=== PATIENT | male | born 1955 | race Two or more races ===

== ENCOUNTER 2018-07-23 13:23 | Inpatient (IN) | payer OTHER ==
[~2018-07-23] VITALS: Ht 165.1 cm; Wt 86.2 kg
[2018-07-23] MEDS ORDERED: Cefepime HCl 1 GM in NS 55 ML IV STA (13:26)
[2018-07-23] MEDS ORDERED: Vancomycin 1 GM in NS 275 ML IV ONE (13:30)
[2018-07-23 13:45] VITALS: BP 121/72
[2018-07-23] MEDS ORDERED: HYDROXYZINE HCL10 M1 PO (13:46)
[2018-07-23] MEDS ORDERED: METOCLOPRA10 MG/10 M ORAL (13:46)
[2018-07-23] MEDS ORDERED: PROCRIT4000 UNIT/ SUBQ (13:46)
[2018-07-23] MEDS ORDERED: NOVOLIN R100 UNIT/1 SUBQ (13:46)
[2018-07-23] MEDS ORDERED: FUROSEMIDE40 MG ORAL (13:46)
[2018-07-23] MEDS ORDERED: PROTONIX40 MG ORAL (13:46)
[2018-07-23] MEDS ORDERED: HEPARIN SO5000 UNIT2 SUBQ (13:46)
[2018-07-23] MEDS ORDERED: ATORVASTATIN CA20 MG ORAL (13:46)
[2018-07-23] MEDS ORDERED: HYDRALAZINE HCL25 M1 ORAL (13:46)
[2018-07-23] MEDS ORDERED: NORCO 5-325 TA1 EACH ORAL (13:46)
[2018-07-23] MEDS ORDERED: GABAPENTIN300 MG ORAL (13:46)
[2018-07-23] MEDS ORDERED: LEVETIRACE100 MG/1 M GT (13:46)
--- NOTE | 2018-07-23 14:15 | Emergency Room Report ---
History of Present Illness General Chief Complaint: Dyspnea/Respdistress Source: EMS Present Illness HPI Patient is brought in for decreased O2 saturation. The patient is vent dependent via tracheostomy in a residential facility. We were told that he is a DO NOT RESUSCITATE. No supporting documentation of this. Suprapubic cath. G tube. Functional paraplegia with contractures. H/O seizures. No further history available. Allergies: Coded Allergies: No Known Allergies (Unverified , 07/23/18) Patient History Limited by: medical condition Past Medical History: see triage record, old chart reviewed Past Surgical History: other - G tube, trach, suprapubic cath Social History Narrative [facility] Reviewed Nursing Documentation: PMH: Agreed; PSxH: Agreed Nursing Documentation-PM Past Medical History: No History, Except For Hx COPD: Yes - respiratory failure, tracheostomy Hx Diabetes: Yes Hx Gastrointestinal Problems: Yes - diaphagia Hx Seizures: Yes - epilepsy Review of Systems All Other Systems: limited Physical Exam Vital Signs Date Time Temp Pulse Resp B/P (MAP) Pulse Ox O2 Delivery O2 Flow Rate FiO2 07/23/18 13:18 99.7 120 24 121/72 100 Ambu-Bag 15.0 07/23/18 13:38 60 Sp02 EP Interpretation: reviewed, normal General Appearance: mild distress, other - unresponsive, Chronically Ill Eyes: bilateral eye other - eyes closed ENT: moist mucus membranes Neck: other - flaccid with some rigidity, tracheotomy Respiratory: rhonchi, other - CVP L chest Cardiovascular #1: tachycardia, edema - arms Cardiovascular #2: 2+ radial (L) Gastrointestinal: no guarding, distended, other - G tube Genitourinary: other - suprapubic cath Musculoskeletal: other - extensor contractures Neurologic: other - unresponsive and no response to pain, no motor movement Psychiatric: other - comatose Skin: other - mottled, anasarca, heel decubiti Procedures Critical Care Time Critical Care Time Total Critical Care Time: 45 min bedside evaluation and treatment excludes procedures (EKG). Reason for critical care: sepsis, repeat eval, GI bleed. EJ Possible complications: hypotension, hypertension, LA, shock, arrhythmias, metabolic acidosis, end organ damage, respiratory failure. Interventions: fluid resuscitation antibiotics, protonix, vent settings, determination of level of care Course: Patient with hypoxia and tachycardia. Fluid resuscitation with maintenance of BP and improved tachycardia. Antibiotics given. Call to SNF for POLST. CVP found after xray. BC ordered from this. Vomit coffee grounds. Protonix ordered. Distension improved with suction of G tube. Prognosis poor. Consultations: nursing staff, EMS, family Performed by: Dr. Llamas Tolerated well condition = critical Medical Decision Making Diagnostic Impression: Primary Impression: Sepsis Qualified Codes: A41.9 - Sepsis, unspecified organism Additional Impressions: Pneumonia Qualified Codes: J18.9 - Pneumonia, unspecified organism UTI (urinary tract infection) Qualified Codes: T83.510A - Infection and inflammatory reaction due to cystostomy catheter, initial encounter; N39.0 - Urinary tract infection, site not specified UGI bleed ER Course Patient with hypoxia and tachycardia - vent dependent. DDx; pneumonia, sepsis, other source of infection, AMI amongst others. Immediate fluid resuscitation for sepsis. Antibiotics ordered after blood cultures. Vent settings. No documentation of DNR. Lack of IV site. EJ started by ERMD @ 14:25 Some blood able to be drawn. Labs with elevated WBC. Anemia. Elevated lactate. Renal insufficiency. CXR with infiltrates. (Line noted). UA with pyuria. Patient vomited coffee grounds. Protonix ordered. Suction of G tube with 900 cc coffee ground material. Discussed with Dr. Payne. Patient not transferrable. Patient admitted to SDU, Dr. Stone. HR improved. Still unresponsive. Good capillary fill. Prognosis poor. Laboratory Tests Test 07/23/18 13:40 07/23/18 14:10 07/23/18 14:39 Urine Color Yellow Urine Appearance Turbid Urine pH 5 (4.5-8.0) Urine Specific [place] 1.005 (1.005-1.035) Urine Protein Negative (NEGATIVE) Urine Glucose (UA) Negative (NEGATIVE) Urine Ketones Negative (NEGATIVE) Urine Blood 3+ (NEGATIVE) H Urine Nitrite Negative (NEGATIVE) Urine Bilirubin Negative (NEGATIVE) Urine Urobilinogen Normal MG/DL (0.0-1.0) Urine Leukocyte Esterase 3+ (NEGATIVE) H Urine RBC 10-15 /HPF (0 - 0) H Urine WBC 20-30 /HPF (0 - 0) H Urine Squamous Epithelial Cells Few /LPF (NONE/OCC) Urine Bacteria Moderate /HPF (NONE) H Urine Yeast Many /HPF (NONE) H White Blood Count 18.6 K/UL (4.8-10.8) H Red Blood Count 3.85 M/UL (4.70-6.10) L Hemoglobin 9.2 G/DL (14.2-18.0) L Hematocrit 28.5 % (42.0-52.0) L Mean Corpuscular Volume 74 FL (80-99) L Mean Corpuscular Hemoglobin 23.8 PG (27.0-31.0) L Mean Corpuscular Hemoglobin Concent 32.2 G/DL (32.0-36.0) Red Cell Distribution Width 18.9 % (11.6-14.8) H Platelet Count 287 K/UL (150-450) Mean Platelet Volume 5.9 FL (6.5-10.1) L Neutrophils (%) (Auto) % (45.0-75.0) Lymphocytes (%) (Auto) % (20.0-45.0) Monocytes (%) (Auto) % (1.0-10.0) Eosinophils (%) (Auto) % (0.0-3.0) Basophils (%) (Auto) % (0.0-2.0) Differential Total Cells Counted 100 Neutrophils % (Manual) 88 % (45-75) H Lymphocytes % (Manual) 10 % (20-45) L Monocytes % (Manual) 2 % (1-10) Eosinophils % (Manual) 0 % (0-3) Basophils % (Manual) 0 % (0-2) Band Neutrophils 0 % (0-8) Platelet Estimate Adequate Platelet Morphology Normal Hypochromasia Occasional Anisocytosis 1+ Sodium Level 134 MMOL/L (136-145) L Potassium Level 4.0 MMOL/L (3.5-5.1) Chloride Level 102 MMOL/L (98-107) Carbon Dioxide Level 21 MMOL/L (21-32) Anion Gap 11 mmol/L (5-15) Blood Urea Nitrogen 84 mg/dL (7-18) H Creatinine 1.5 MG/DL (0.55-1.30) H Estimate Glomerular Filtration Rate 47.6 mL/min (>60) Glucose Level 108 MG/DL (74-106) H Lactic Acid Level 3.60 mmol/L (0.4-2.0) H Calcium Level 7.7 MG/DL (8.5-10.1) L Magnesium Level 2.1 MG/DL (1.8-2.4) Total Bilirubin 3.7 MG/DL (0.2-1.0) H Direct Bilirubin 2.9 MG/DL (0.0-0.3) H Aspartate Amino Transferase (AST) 70 U/L (15-37) H Alanine Aminotransferase (ALT) 54 U/L (12-78) Alkaline Phosphatase 699 U/L (46-116) H Total Creatine Kinase 55 U/L (26-308) Creatine Kinase MB 1.6 NG/ML (0.0-3.6) Creatine Kinase MB Relative Index 2.9 Troponin I 0.007 ng/mL (0.000-0.056) Pro-B-Type Natriuretic Peptide 3652 pg/mL (0-125) H Total Protein 6.9 G/DL (6.4-8.2) Albumin 1.2 G/DL (3.4-5.0) L Globulin 5.7 g/dL Albumin/Globulin Ratio 0.2 (1.0-2.7) L Lipase 711 U/L (73-393) H Prothrombin Time 12.1 SEC (9.30-11.50) H Prothrombin Time INR 1.2 (0.9-1.1) H PTT 31 SEC (23-33) EKG Diagnostic Results Rate: tachycardiac Rhythm: NSR ST Segments: no acute changes Rhythm Strip Diag. Results EP Interpretation: yes Rhythm: no PVC's, no ectopy, other - Sinus tachycardia Chest X-Ray Diagnostic Results Chest X-Ray Diagnostic Results : Chest X-Ray Ordered: Yes # of Views/Limited/Complete: 1 View Indication: Shortness of Breath Interpretation: no effusion, no pneumothorax, other - bilat infiltrates Impression: Other Electronically Signed by: Electronically signed by Jese Llamas MD Other X-Ray Diagnostic Results Other X-Ray Diagnostic Results : X-Ray ordered: abd # of Views/Limited Vs Complete: 1 View Indication: Swelling EP Interpretation: Yes Interpretation: other - dilated loops of colon, no free air, G tube, fecal material Impression: Other Electronically Signed by: Jese Llamas MD Last Vital Signs Date Time Temp Pulse Resp B/P (MAP) Pulse Ox O2 Delivery O2 Flow Rate FiO2 07/23/18 21:39 101/60 07/23/18 21:19 68 27 50 10/28/18 20:00 98.6 98 07/23/18 20:00 Mechanical Ventilator 07/23/18 18:03 8.0 Status: improved Disposition: ADMITTED INPATIENT Condition: Serious Jese Llamas MD Jul 23, 2018 14:15
[2018-07-23 14:29] LABS: APPEARANCE,URINE TURBID; BILIRUBIN, URINE NEGATIVE (NEGATIVE); GLUCOSE, URINE (UA) NEGATIVE (NEGATIVE); KETONES,URINE NEGATIVE (NEGATIVE); LEUKOCYTE ESTERASE ,URINE 3+ (NEGATIVE); NITRITE,URINE NEGATIVE (NEGATIVE); PH,URINE 5 (4.5-8.0); PROTEIN,URINE NEGATIVE (NEGATIVE); UROBILINOGEN,URINE NORMAL MG/DL (0.0-1.0)
[2018-07-23 14:33] LABS: COLOR,URINE YELLOW
[2018-07-23 15:00] LABS: INR 1.2 (0.9-1.1)
[2018-07-23 15:01] LABS: HEMATOCRIT 28.5 % (42.0-52.0); HEMOGLOBIN 9.2 G/DL (14.2-18.0); MEAN CORPUSCULAR VOLUME 74 FL (80-99); PLATELET COUNT 287 K/UL (150-450); RED BLOOD COUNT 3.85 M/UL (4.70-6.10); RED CELL DISTRIBUTION WIDTH 18.9 % (11.6-14.8); WHITE BLOOD COUNT 18.6 K/UL (4.8-10.8)
[2018-07-23 15:18] LABS: ANION GAP 11 mmol/L (5-15); BLOOD UREA NITROGEN 84 mg/dL (7-18); CALCIUM 7.7 MG/DL (8.5-10.1); CARBON DIOXIDE 21 MMOL/L (21-32); CHLORIDE 102 MMOL/L (98-107); CREATININE 1.5 MG/DL (0.55-1.30); SODIUM 134 MMOL/L (136-145)
[2018-07-23 15:32] LABS: ALANINE AMINOTRANSFERASE 54 U/L (12-78); ALBUMIN 1.2 G/DL (3.4-5.0); ALBUMIN/GLOBULIN RATIO 0.2 (1.0-2.7); ALKALINE PHOSPHATASE 699 U/L (46-116); ASPARTATE AMINO TRANSFERASE 70 U/L (15-37); BILIRUBIN,TOTAL 3.7 MG/DL (0.2-1.0); CKMB 1.6 NG/ML (0.0-3.6); CREATINE KINASE 55 U/L (26-308)
[2018-07-23 15:44] LABS: BILIRUBIN,DIRECT 2.9 MG/DL (0.0-0.3)
[2018-07-23 15:45] VITALS: BP 110/69
[2018-07-23] MEDS ORDERED: Pantoprazole Inj IVP ONE (15:45)
[2018-07-23 17:30] VITALS: BP 108/66
[2018-07-23] MEDS ORDERED: Norco 5mg/325mg tab ORAL PRN (18:15)
[2018-07-23] MEDS ORDERED: Norco 5mg/325mg tab GT PRN (18:49)
[2018-07-23 20:00] VITALS: BP 94/48
[2018-07-23] MEDS: Vitamin A&D Oint 2oz Tube TOPIC SCH (20:34)
[2018-07-23] MEDS: Piperacillin/Tazobactam 3.375 GM in D5W 110 ML IVPB SCH (20:34)
[2018-07-23] MEDS: Atorvastatin 20mg tab GT SCH (20:35)
[2018-07-23] MEDS: Heparin 5000 units/ml inj SUBQ SCH (20:35)
[2018-07-23] MEDS: Metoclopramide 10mg/10ml Liq GT SCH (21:38)
[2018-07-23] MEDS: HydrALAZINE 25mg tab GT SCH (21:39)
[2018-07-23] MEDS ORDERED: HydrALAZINE 25mg tab ORAL SCH (22:00)
[2018-07-23] MEDS ORDERED: Metoclopramide 10mg/10ml Liq ORAL SCH (22:00)
[2018-07-23] MEDS: NovoLOG Insulin Flexpen SUBQ SCH (23:39)
[2018-07-24] VITALS: BP 99/54
[2018-07-24 04:00] VITALS: BP 101/61
[2018-07-24] MEDS: Piperacillin/Tazobactam 3.375 GM in D5W 110 ML IVPB SCH ×3 (04:05→20:00)
[2018-07-24] MEDS: Metoclopramide 10mg/10ml Liq GT SCH ×3 (05:37→22:40)
[2018-07-24] MEDS: HydrALAZINE 25mg tab GT SCH ×3 (05:38→22:00)
[2018-07-24] MEDS: NovoLOG Insulin Flexpen SUBQ SCH ×3 (05:50→18:00)
[2018-07-24 06:10] LABS: HEMATOCRIT 20.5 % (42.0-52.0); MEAN CORPUSCULAR VOLUME 75 FL (80-99); PLATELET COUNT 187 K/UL (150-450); RED BLOOD COUNT 2.74 M/UL (4.70-6.10); RED CELL DISTRIBUTION WIDTH 18.8 % (11.6-14.8); WHITE BLOOD COUNT 9.7 K/UL (4.8-10.8)
[2018-07-24 06:20] LABS: ANION GAP 10 mmol/L (5-15); BLOOD UREA NITROGEN 81 mg/dL (7-18); CALCIUM 7.5 MG/DL (8.5-10.1); CARBON DIOXIDE 23 MMOL/L (21-32); CHLORIDE 106 MMOL/L (98-107); CREATININE 1.5 MG/DL (0.55-1.30); POTASSIUM 2.8 MMOL/L (3.5-5.1); SODIUM 139 MMOL/L (136-145)
[2018-07-24 06:31] LABS: HEMOGLOBIN 6.5 G/DL (14.2-18.0)
[2018-07-24 08:00] VITALS: BP 90/51
[2018-07-24] MEDS: Furosemide 40mg tab GT SCH (08:59)
[2018-07-24] MEDS ORDERED: Furosemide 40mg tab ORAL SCH (09:00)
[2018-07-24] MEDS: Heparin 5000 units/ml inj SUBQ SCH ×2 (09:00→20:47)
[2018-07-24] MEDS: Vitamin A&D Oint 2oz Tube TOPIC SCH ×2 (09:01→20:48)
[2018-07-24 09:59] LABS: HEMATOCRIT 22.3 % (42.0-52.0); MEAN CORPUSCULAR VOLUME 75 FL (80-99); PLATELET COUNT 202 K/UL (150-450); RED BLOOD COUNT 2.99 M/UL (4.70-6.10); RED CELL DISTRIBUTION WIDTH 19.2 % (11.6-14.8); WHITE BLOOD COUNT 9.4 K/UL (4.8-10.8)
--- NOTE | 2018-07-24 11:31 | General Progress Note ---
Assessment/Plan Assessment/Plan Assessment - Dark GT aspirate, ? blood (stools not melanotic) - Anemia - Abnormal LFT, ? etiology - diarrhea - Resp failure / trach - dysphagia / GT - lactic acidosis and leukocytosis on admission Recommendations - Message left with to discuss - check KUB - Check abd u/s - Check hepatitis serologies - transfuse PRN - PPI - follow labs - hold feeds for now Thank you Nina Seay MD Subjective Allergies: Coded Allergies: No Known Allergies (Unverified , 07/23/18) Objective Last 24 Hour Vital Signs Date Time Temp Pulse Resp B/P (MAP) Pulse Ox O2 Delivery O2 Flow Rate FiO2 07/24/18 08:40 78 23 50 07/24/18 07:37 75 24 50 07/24/18 05:38 88/52 07/24/18 05:15 80 22 50 07/24/18 04:00 50 07/24/18 04:00 Mechanical Ventilator 07/24/18 04:00 98.7 73 20 101/61 (74) 98 07/24/18 03:21 74 07/24/18 02:33 72 26 50 07/24/18 01:15 75 25 50 07/24/18 00:22 77 07/24/18 00:00 Mechanical Ventilator 07/24/18 00:00 98.5 80 29 99/54 (69) 100 07/23/18 23:19 77 25 50 07/23/18 21:39 101/60 07/23/18 21:19 68 27 50 07/23/18 20:00 98.6 80 29 94/48 (63) 98 07/23/18 20:00 Mechanical Ventilator 07/23/18 20:00 50 07/23/18 19:59 80 26 50 07/23/18 19:27 85 07/23/18 18:03 Mechanical Ventilator 8.0 07/23/18 17:30 99.7 36 108/66 100 Ambu-Bag 15.0 50 07/23/18 17:00 99.7 36 110/69 100 Ambu-Bag 15.0 50 07/23/18 16:32 104 36 50 07/23/18 15:45 99.7 37 110/69 100 Ambu-Bag 15.0 50 07/23/18 14:41 102 37 50 07/23/18 13:45 99.7 42 121/72 100 Ambu-Bag 15.0 60 07/23/18 13:45 122 42 Ambu-Bag 15.0 60 07/23/18 13:38 122 42 60 07/23/18 13:18 99.7 120 24 121/72 100 Ambu-Bag 15.0 Intake and Output 07/23/18 07/24/18 19:00 07:00 Intake Total 0 ml 1332.5 ml Output Total 1320 ml 1100 ml Balance -1320 ml 232.5 ml Intake Oral 0 ml 0 ml IV Total 1192.5 ml Other 140 ml Output Urine Total 220 ml 500 ml Stool Total 100 ml 400 ml Gastric Drainage Total 900 ml 200 ml Emesis 100 ml # Bowel Movements 1 Laboratory Tests 07/23/18 13:40: Urine Color Yellow, Urine Appearance Turbid, Urine pH 5, Urine Specific [place] 1.005, Urine Protein Negative, Urine Glucose (UA) Negative, Urine Ketones Negative, Urine Blood 3+H, Urine Nitrite Negative, Urine Bilirubin Negative, Urine Urobilinogen Normal, Urine Leukocyte Esterase 3+H, Urine RBC 10-15H, Urine WBC 20-30H, Urine Squamous Epithelial Cells Few, Urine Bacteria ModerateH , Urine Yeast ManyH 07/23/18 14:10: White Blood Count 18.6H, Red Blood Count 3.85L, Hemoglobin 9.2L, Hematocrit 28.5L, Mean Corpuscular Volume 74L, Mean Corpuscular Hemoglobin 23.8L, Mean Corpuscular Hemoglobin Concent 32.2, Red Cell Distribution Width 18.9H, Platelet Count 287, Mean Platelet Volume 5.9L, Neutrophils (%) (Auto) , Lymphocytes (%) (Auto) , Monocytes (%) (Auto) , Eosinophils (%) (Auto) , Basophils (%) (Auto) , Differential Total Cells Counted 100, Neutrophils % ( Manual) 88H, Lymphocytes % (Manual) 10L, Monocytes % (Manual) 2, Eosinophils % ( Manual) 0, Basophils % (Manual) 0, Band Neutrophils 0, Platelet Estimate Adequate, Platelet Morphology Normal, Hypochromasia Occasional, Anisocytosis 1+ , Sodium Level 134L, Potassium Level 4.0, Chloride Level 102, Carbon Dioxide Level 21, Anion Gap 11, Blood Urea Nitrogen 84H, Creatinine 1.5H, Estimat Glomerular Filtration Rate 47.6, Glucose Level 108H, Lactic Acid Level 3.60H, Calcium Level 7.7L, Magnesium Level 2.1, Total Bilirubin 3.7H, Direct Bilirubin 2.9H, Aspartate Amino Transf (AST/SGOT) 70H, Alanine Aminotransferase (ALT/SGPT ) 54, Alkaline Phosphatase 699H, Total Creatine Kinase 55, Creatine Kinase MB 1.6, Creatine Kinase MB Relative Index 2.9, Troponin I 0.007, Pro-B-Type Natriuretic Peptide 3652H, Total Protein 6.9, Albumin 1.2L, Globulin 5.7, Albumin/Globulin Ratio 0.2L, Lipase 711H 07/23/18 14:39: Prothrombin Time 12.1H, Prothromb Time International Ratio 1.2H, Activated Partial Thromboplast Time 31 07/24/18 04:20: White Blood Count 9.7, Red Blood Count 2.74L, Hemoglobin 6.5*L, Hematocrit 20.5L , Mean Corpuscular Volume 75L, Mean Corpuscular Hemoglobin 23.8L, Mean Corpuscular Hemoglobin Concent 31.8L, Red Cell Distribution Width 18.8H, Platelet Count 187, Mean Platelet Volume 5.4L, Neutrophils (%) (Auto) , Lymphocytes (%) (Auto) , Monocytes (%) (Auto) , Eosinophils (%) (Auto) , Basophils (%) (Auto) , Differential Total Cells Counted 100, Neutrophils % ( Manual) 74, Lymphocytes % (Manual) 18L, Monocytes % (Manual) 6, Eosinophils % ( Manual) 1, Basophils % (Manual) 1, Band Neutrophils 0, Platelet Estimate Adequate, Platelet Morphology Normal, Hypochromasia 4+, Anisocytosis 2+, Sodium Level 139, Potassium Level 2.8L, Chloride Level 106, Carbon Dioxide Level 23, Anion Gap 10, Blood Urea Nitrogen 81H, Creatinine 1.5H, Estimat Glomerular Filtration Rate 47.6, Glucose Level 90, Calcium Level 7.5L, Microcytosis 1+ 07/24/18 09:20: White Blood Count 9.4, Red Blood Count 2.99L, Hemoglobin 7.0L, Hematocrit 22.3L , Mean Corpuscular Volume 75L, Mean Corpuscular Hemoglobin 23.5L, Mean Corpuscular Hemoglobin Concent 31.6L, Red Cell Distribution Width 19.2H, Platelet Count 202, Mean Platelet Volume 5.6L, Neutrophils (%) (Auto) , Lymphocytes (%) (Auto) , Monocytes (%) (Auto) , Eosinophils (%) (Auto) , Basophils (%) (Auto) , Differential Total Cells Counted 100, Neutrophils % ( Manual) 76H, Lymphocytes % (Manual) 16L, Monocytes % (Manual) 7, Eosinophils % ( Manual) 0, Basophils % (Manual) 1, Band Neutrophils 0, Platelet Estimate Adequate, Platelet Morphology Normal, Hypochromasia 3+, Anisocytosis 2+, Microcytosis 1+ Height (Feet): 5 Height (Inches): 5.00 Weight (Pounds): 132 Victorino Seay MD Jul 24, 2018 11:31
[2018-07-24] MEDS ORDERED: Tubing IV Secondary IV ONE (11:54)
[2018-07-24] MEDS ORDERED: Sterile Water For Inj 1000ml IV ONE (11:54)
[2018-07-24 12:00] VITALS: BP 102/56
--- NOTE | 2018-07-24 12:23 | Diagnostic Imaging Report ---
Indication: Abdominal pain Comparison: None Single view of the abdomen obtained Findings: Bowel gas pattern is nonspecific. No mass, ectopic calcifications, or abnormal gas collections are identified. The bones are osteopenic. There is an IVC filter present in the right mid abdomen. Gastrostomy tube noted in the left upper quadrant abdomen. Mildly distended loops of colon demonstrated and fecal retention distally noted. Mars catheter also noted. Impression: No acute findings
[2018-07-24] MEDS ORDERED: Gentamicin Rx monitoring MISC PRN (12:30)
--- NOTE | 2018-07-24 12:41 | Diagnostic Imaging Report ---
Indication: Dyspnea Comparison: None A single view chest radiograph was obtained. Findings: Interstitial edema suspected with prominent vascularity. Heart size is borderline. Left subclavian line is present with the tip projected over the SVC. No pneumothorax identified. Tracheostomy noted. Bones are osteopenic. The stomach is dilated and air-filled. IMPRESSION: Interstitial edema/CHF suspected
[2018-07-24 12:50] LABS: ALANINE AMINOTRANSFERASE 33 U/L (12-78); ALBUMIN 0.8 G/DL (3.4-5.0); ALBUMIN/GLOBULIN RATIO 0.2 (1.0-2.7); ALKALINE PHOSPHATASE 445 U/L (46-116); ANION GAP 9 mmol/L (5-15); ASPARTATE AMINO TRANSFERASE 42 U/L (15-37); BILIRUBIN,TOTAL 2.4 MG/DL (0.2-1.0); BLOOD UREA NITROGEN 81 mg/dL (7-18); CALCIUM 7.4 MG/DL (8.5-10.1); CARBON DIOXIDE 23 MMOL/L (21-32); CHLORIDE 108 MMOL/L (98-107); CREATININE 1.4 MG/DL (0.55-1.30); POTASSIUM 3.5 MMOL/L (3.5-5.1); SODIUM 140 MMOL/L (136-145)
[2018-07-24 12:51] LABS: BILIRUBIN,DIRECT 1.9 MG/DL (0.0-0.3)
--- NOTE | 2018-07-24 13:08 | Diagnostic Imaging Report ---
Indication: Dyspnea Comparison: 07/23/2018 A single view chest radiograph was obtained. Findings: Vascular congestion demonstrated. There is a left subclavian line present projected over the SVC. Tracheostomy noted. Heart is enlarged. IMPRESSION: CHF. No change
--- NOTE | 2018-07-24 14:49 | Diagnostic Imaging Report ---
Indication: Elevated liver function tests. Lipase. Gastrostomy. Abdominal pain Technique: Grayscale and duplex Doppler imaging of the abdomen performed. Comparison: None Findings: There is moderate ascites. There is nodularity of the liver surface. The spleen is 15 cm. Gallbladder wall thickening noted. There is a nodular soft tissue mass 1.5 cm at the fundus of the gallbladder. Further evaluation with contrast CT or MR recommended. CBD is 4.6 mm. Pancreas is poorly seen. Kidneys are unremarkable. There is no hydronephrosis.The main portal vein is patent. Suprapubic catheter noted within the bladder. Bladder is nondistended. IMPRESSION: Chronic liver disease/cirrhosis suspected. Stigmata of portal hypertension including moderate ascites and splenomegaly. Fundal region 1.5 cm gallbladder mass. Further evaluation recommended. Suprapubic catheter
--- NOTE | 2018-07-24 14:54 | Diagnostic Imaging Report ---
Indication: Abdominal pain Comparison: 07/23/2018 Single view of the abdomen obtained Findings: Dilated colon in the midabdomen again demonstrated. Gastrostomy noted on the left. Hazy groundglass opacification of the abdomen consistent with ascites. This has been confirmed on ultrasound. IMPRESSION: No radiographic change
[2018-07-24] MEDS ORDERED: Gentamicin inj 300 MG in NS 110 ML IVPB SCH (15:00)
[2018-07-24 16:00] VITALS: BP 92/52
[2018-07-24] MEDS: Vancomycin 1gm/D5W 275ml IVPB SCH ×2 (16:30)
--- NOTE | 2018-07-24 18:00 | History and Physical Report ---
DATE OF ADMISSION: 07/23/2018 HISTORY OF PRESENT ILLNESS: This is a 63-year-old unfortunate male with respiratory failure, previously on TPN, now on G-tube feedings. The patient was brought in for oxygen desaturation. The patient is currently admitted for possible sepsis. PAST MEDICAL HISTORY: Notable for suprapubic catheter, G-tube, functional quadriplegia, contracture, history of gastrointestinal intolerance, severe protein-calorie malnutrition, respiratory failure, tracheostomy, and seizure disorder. MEDICATIONS: Reviewed. ALLERGIES: Reviewed. SOCIAL HISTORY: Resides at [facility]. PHYSICAL EXAMINATION: GENERAL: Chronically ill-appearing male. VITAL SIGNS: Reviewed. HEENT: Negative. NECK: Supple. LUNGS: With coarse breath sounds. CARDIAC: Normal S1 and S2. Slightly tachycardic. ABDOMEN: Soft. G-tube in place. EXTREMITIES: No edema. GENITOURINARY: He has suprapubic catheter. SKIN: With anasarca and healed decubitus. PHYSICAL EXAMINATION: VITAL SIGNS: Blood pressure 88/52, previously 101/61, RR 20, sats 98%, and temperature 97. LABORATORY DATA: Reviewed. INR 1.2. Chemistries, BUN 81 and creatinine 1.5. Hematology, white cell count 9.7, hemoglobin 6.5, and platelets of 187,000. IMPRESSION: 1. Possible sepsis. 2. Acute on chronic renal failure. 3. Anemia. 4. Possible gastrointestinal bleed. 5. Leukocytosis. 6. Mild coagulopathy. 7. Prior history of G-tube intolerance. 8. Suprapubic catheter. 9. Respiratory failure. 10. Tracheostomy. RECOMMENDATIONS: 1. Supportive care. 2. Intravenous antibiotic. 3. Transfuse. 4. Replace potassium. 5. Obtain renal, ID, and GI evaluation. 6. Transfuse and monitor clinically. 7. Follow up cultures. 8. Recommend ID evaluation. 9. Recommend feedings as tolerated. 10. IV hydration as tolerated. 11. Prognosis is overall poor. 12. The patient previously Do Not Resuscitate. Grant Stone M.D. DR: AMANDA JOB#: [id number] CC: GUIDO
[2018-07-24 20:00] VITALS: BP 93/52
[2018-07-24] MEDS: Atorvastatin 20mg tab GT SCH (20:47)
[2018-07-24] MEDS: levETIRAcetam 500mg/5ml Liquid GT SCH (20:47)
--- NOTE | 2018-07-24 21:15 | Consultation ---
DATE OF CONSULTATION: 07/24/2018 GASTROLOGY CONSULTATION CHIEF COMPLAINT: I was asked to see this patient by Dr. Grant Stone for evaluation of dark gastrostomy aspirate, anemia, and abnormal liver tests. HISTORY OF PRESENT ILLNESS: The patient is a debilitated unfortunate 63-year-old middle [place], who is nonverbal, who was brought to the hospital because of decreased O2 saturation. During the course of admission evaluation, the patient has been noted to have leukocytosis, which has improved. There is also dark nasogastric aspirate, but with no melena. There was also abnormal liver tests on admission. The patient himself is unable to provide any history. Most of the information is only available from the chart, but there is no outside records that are available with this patient. The patient has been noted to have loose green stools and has required to have a rectal tube for this. He has also some degree of lactic acidosis and liver test abnormalities on admission with no prior chart note of liver history. He does, however, have a gastrostomy tube and a suprapubic catheter placed. PAST MEDICAL HISTORY: History of quadriplegia with contraction deformities, status post gastrostomy tube placement, status post suprapubic tube placement, history of seizures with contracture deformities, history of respiratory failure status post tracheostomy with a history of chronic obstructive pulmonary disease, history of diabetes, dysphagia status post gastrostomy tube placement, history of seizure disorder, and status post suprapubic catheter placement. FAMILY HISTORY: Unavailable. SOCIAL HISTORY: The patient resides in a halfway with 24-hour care. REVIEW OF SYSTEMS: Unobtainable. PHYSICAL EXAMINATION: GENERAL: A debilitated man seen in his room. HEENT: Normocephalic and atraumatic. Tracheostomy catheter is in place. CHEST: Revealed coarse breath sounds. CARDIOVASCULAR: Revealed a regular rate. ABDOMEN: Soft with left upper quadrant gastrostomy as well as the suprapubic area catheter placement noted. EXTREMITIES: Revealed no edema. NEUROLOGIC: There is some contractures. The patient is nonverbal. LABORATORY DATA: Noted. ASSESSMENT: This patient presents with several gastrointestinal issues. One is that, he has dark-colored gastrostomy aspirate although it does not look like classic coffee-ground and the stool is not melanotic either. This, therefore, may be a dark bilious aspirate. The patient's anemia, however, is significant and may require transfusion. I will discuss with the family if they want to proceed with an endoscopic evaluation of the upper gastrointestinal tract. The patient also has some degree of loose stools and therefore, his Clostridium difficile should be checked on the stools. Finally, he has some abnormal liver tests or lactic acidosis. The patient should have an abdominal ultrasound to evaluate his liver and biliary tree. RECOMMENDATIONS: 1. Check abdominal ultrasound. 2. Check KUB. 3. Monitor CBC. 4. Transfuse as needed. 5. Proton pump inhibitor. 6. Discussion with family. 7. Check Clostridium difficile. Thank you for asking me to participate in the care of this patient. Victorino Seay M.D. DR: JEREMY JOB#: [id number] CC:
--- NOTE | 2018-07-24 21:30 | Consultation ---
DATE OF CONSULTATION: 07/24/2018 INFECTIOUS DISEASES CONSULTATION CONSULTING PHYSICIAN: Franny Cr M.D. REFERRING PHYSICIAN: Grant Stone M.D. REASON FOR CONSULTATION: Urinary tract infection and pneumonia. HISTORY OF PRESENTING ILLNESS: This is a 63-year-old gentleman with history of seizures, paraplegia, respiratory failure, status post tracheostomy, G-tube placement, suprapubic catheter placement, who is transferred from a longterm facility with decreased O2 saturation. He was found to have a urinary tract infection and pneumonia and an Infectious Diseases consultation has been obtained for antibiotics. PAST MEDICAL HISTORY: 1. History of seizures. 2. History of respiratory failure, status post tracheostomy. 3. History of diabetes. 4. Dysphagia, status post G-tube placement. 5. Epilepsy. 6. Suprapubic catheter placement. MEDICATIONS: As an inpatient, he is on Keppra, IV vancomycin, hydroxyzine, lansoprazole, Lasix, insulin, gabapentin, hydralazine, metoclopramide, vitamin A and D, subcutaneous heparin, atorvastatin, Zosyn, and [place]. ALLERGIES: No known drug allergies. SOCIAL HISTORY: Unknown. FAMILY HISTORY: Unknown. REVIEW OF SYSTEMS: Unable to obtain currently. PHYSICAL EXAMINATION: VITAL SIGNS: Temperature of 98.7, T-max of , pulse of 78, respiratory rate 23, blood pressure 88/52, and O2 saturation of 98%. HEENT: Pupils equally reactive to light and accommodation. Mouth appears clean without thrush. NECK: Supple. No adenopathy. No JVD. CARDIOVASCULAR: Regular rate and rhythm. No murmurs. LUNGS: Clear to auscultation bilaterally. No crackles. No wheezes. ABDOMEN: Soft and nontender. No organomegaly. G-tube site appears clean. Suprapubic catheter noted. EXTREMITIES: No cyanosis. No clubbing. Edema noted bilaterally. Left subclavian catheter noted. LABORATORY AND DIAGNOSTIC DATA: White count of 18 on 07/23/2018, white count of 9.4 today, hemoglobin 7, hematocrit 22.3, MCV 75, and platelet count of 202,000 with neutrophils of 76%. Sodium 139, potassium 2.8, chloride 106, bicarb 23, BUN 81, creatinine 1.5, glucose of 90, and calcium of 7.4. Total bilirubin 3.7. Direct bilirubin 2.9. AST and ALT 54. 1.6. Troponin 0.007. Beta-nitrate peptide 3652. Total protein 6.9. Albumin 1.2. Lipase of 711. UA is showing 20 to 30 white cells. Blood cultures growing gram-negative rods. Urine culture is pending. Sputum cultures are pending. ASSESSMENT: This is a 63-year-old gentleman with history of seizures, respiratory failure, status post tracheostomy, who comes in with decreased O2 saturation and is found to have, 1. Gram-negative sepsis could be secondary to urinary tract infection. 2. Urinary tract infection. 3. Possible aspiration pneumonia. PLAN: 1. Continue IV vancomycin and Zosyn. 2. We will follow up cultures and adjust antibiotics accordingly. I would like to thank. Franny Cr M.D. DR: GABI JOB#: [id number] CC:
--- NOTE | 2018-07-24 22:00 | Consultation ---
DATE OF CONSULTATION: 07/24/2018 REASON FOR CONSULTATION: 1. Acute kidney injury. 2. CKD, stage IIIB. 3. Hypokalemia. 4. Edema. HISTORY OF PRESENT ILLNESS: History was obtained through electronic chart review and discussion with bedside nurse. The patient currently is chronically ventilated through tracheostomy. He is a resident of a snf facility. He was transported for further evaluation and care of dyspnea, respiratory distress, and pneumonia. He is a functional paraplegic with contractures. He does have a suprapubic catheter and G-tube in place. It was noted that his creatinine was 1.5 and BUN of 84 with an albumin of 1.2. PAST MEDICAL HISTORY: 1. Chronic respiratory failure. 2. Paraplegic with contractures. 3. Hypoalbuminemic. 4. Edema. 5. Anemia of chronic kidney disease. 6. Hypertension. 7. Seizure disorder. PAST SURGICAL HISTORY: 1. G-tube. 2. Tracheostomy. 3. Suprapubic cath. ALLERGIES: No known drug allergies. SOCIAL HISTORY: [facility]. No tobacco, alcohol, or illicit drug use. FAMILY HISTORY: Noncontributory. PHYSICAL EXAMINATION: VITAL SIGNS: Blood pressure 90/51, 100% oxygen saturation, mechanically ventilated, respiratory rate 24, pulse 67, and temperature 97.3. GENERAL: The patient is chronically ventilated through tracheostomy, minimally arousable. HEENT: Extraocular muscles intact. No lymphadenopathy noted. CARDIOVASCULAR: S1, S2. No rubs or gallops. PULMONARY: Diffuse upper rhonchi. Fair air movement in all lung porras. ABDOMEN: Nondistended and nontender. EXTREMITY: A 4+ pitting edema in all extremities. LABORATORY DATA: Labs dated 07/24/2018, potassium 2.8, creatinine 1.5, BUN 81, and sodium 139. Albumin 1.7. Hemoglobin 7, white cell count 9.4, and platelet count 202,000. ASSESSMENT: 1. Acute kidney injury versus chronic kidney disease, stage IIIB. At this time, baseline creatinine not entirely clear. Renal function is stable with creatinine of 1.3. Underlying component of ischemic acute tubular necrosis from hypotension. We will hold antihypertensive medications while the patient is hypotensive. Continue p.r.n. intravenous fluids and monitor blood pressure if diuresed. 2. Anasarca. Secondary to decreased oncotic pressure from hypoalbuminemic state with a serum albumin of 1.2. Encourage high-protein state through G-tube feedings. 3. Sepsis. Likely from pneumonia. IV antibiotics per primary care physician and Pulmonary. 4. Seizure disorder. The patient is on Keppra. 5. Chronic respiratory failure. The patient is currently chronically mechanically ventilated through tracheostomy. 6. Hypokalemia. At this time, continue to replace aggressively as needed. 7. Hypocalcemia. Pseudo due to corrected hypoalbuminemic state. Let me take this opportunity to thank Dr. Stone. Sumit Merchant MD DR: LLOYD/YAmirah JOB#: [id number] CC:
--- NOTE | 2018-07-24 22:28 | Consultation ---
History of Present Illness General Date patient seen: Jul 24, 2018 Chief Complaint: Dyspnea/Respdistress Present Illness HPI 63 year old male residential resident with multiple medical comorbidities who is trach/vent/peg dependant presented for medical care and management. Upon admission noted to have multiple wounds including lower extremities and sacrum. Complex wounds that will require care during admission. Surgery called to evaluate and assist with care and management. patient seen, chart reviewed, patient examined. patient unable to provide history given medical condition Allergies: Coded Allergies: No Known Allergies (Unverified , 07/23/18) Medication History Scheduled Atorvastatin Calcium* (Atorvastatin Calcium*), 20 MG ORAL BEDTIME, (Reported) Epoetin Rios (Procrit), 4,000 UNIT SUBQ QWEEK, (Reported) Furosemide* (Lasix*), 40 MG ORAL DAILY, (Reported) Gabapentin* (Gabapentin*), 300 MG ORAL THREE TIMES A DAY, (Reported) Heparin Sod (Porcine) (Heparin Sodium*), 5,000 UNITS SUBQ EVERY 12 HOURS, ( Reported) Hydralazine Hcl* (Hydralazine Hcl*), 25 MG ORAL EVERY 8 HOURS, (Reported) Hydroxyzine Hcl (Hydroxyzine Hcl), 10 MG PO DAILY, (Reported) Insulin Regular, Human* (Novolin R*), 0 SUBQ .SLIDING SCALE, (Reported) Levetiracetam* (Levetiracetam*), 500 MG GT BID, (Reported) Metoclopramide Hcl* (Metoclopramide Hcl*), 10 MG ORAL EVERY 8 HOURS, (Reported) Pantoprazole* (Protonix*), 40 MG ORAL DAILY, (Reported) Scheduled PRN Hydrocodone Bit/Acetaminophen 5-325* (Whiteriver 5-325*), 1 TAB ORAL Q4H PRN for For Pain, (Reported) Patient History Limited by: medical condition History Provided By: Medical Record, PMD Healthcare decision maker Therese Mi Resuscitation status Do Not Resuscitate Advanced Directive on File No Past Medical/Surgical History Past Medical/Surgical History: (1) UGI bleed (2) UTI (urinary tract infection) (3) Sepsis (4) Pneumonia Review of Systems All Other Systems: negative except mentioned in HPI Physical Exam General Appearance: no apparent distress Lines, tubes and drains: other HEENT: mucous membranes moist Neck: trach Respiratory/Chest: on vent Cardiovascular/Chest: normal rate Abdomen: soft, feeding tube Extremities: other Skin Exam: other Neurologic: unresponsiveness Last 24 Hour Vital Signs Date Time Temp Pulse Resp B/P (MAP) Pulse Ox O2 Delivery O2 Flow Rate FiO2 07/24/18 22:00 93/52 07/24/18 20:49 71 28 50 07/24/18 20:00 97.7 73 26 93/52 (66) 99 07/24/18 20:00 77 07/24/18 20:00 50 07/24/18 20:00 Mechanical Ventilator 07/24/18 19:27 67 28 50 07/24/18 16:50 81 30 50 07/24/18 16:00 69 07/24/18 16:00 97.5 73 32 92/52 (65) 93 07/24/18 16:00 50 07/24/18 16:00 Mechanical Ventilator 07/24/18 14:47 75 23 50 07/24/18 14:00 102/56 07/24/18 12:40 79 26 50 07/24/18 12:00 97.7 71 28 102/56 (71) 100 07/24/18 12:00 50 07/24/18 12:00 Mechanical Ventilator 07/24/18 12:00 65 07/24/18 11:05 75 25 50 07/24/18 08:40 78 23 50 07/24/18 08:00 50 07/24/18 08:00 68 07/24/18 08:00 Mechanical Ventilator 07/24/18 08:00 97.3 67 24 90/51 (64) 100 07/24/18 07:37 75 24 50 07/24/18 05:38 88/52 07/24/18 05:15 80 22 50 07/24/18 04:00 50 07/24/18 04:00 Mechanical Ventilator 07/24/18 04:00 98.7 73 20 101/61 (74) 98 07/24/18 03:21 74 07/24/18 02:33 72 26 50 07/24/18 01:15 75 25 50 07/24/18 00:22 77 07/24/18 00:00 Mechanical Ventilator 07/24/18 00:00 98.5 80 29 99/54 (69) 100 07/23/18 23:19 77 25 50 Intake and Output 07/23/18 07/24/18 18:59 06:59 Intake Total 0 ml 1305.0 ml Output Total 1320 ml 1100 ml Balance -1320 ml 205.0 ml Intake Oral 0 ml 0 ml IV Total 1165.0 ml Other 140 ml Output Urine Total 220 ml 500 ml Stool Total 100 ml 400 ml Gastric Drainage Total 900 ml 200 ml Emesis 100 ml # Bowel Movements 1 Laboratory Tests Test 07/24/18 04:20 07/24/18 09:20 07/24/18 12:05 White Blood Count 9.7 K/UL (4.8-10.8) 9.4 K/UL (4.8-10.8) Red Blood Count 2.74 M/UL (4.70-6.10) L 2.99 M/UL (4.70-6.10) L Hemoglobin 6.5 G/DL (14.2-18.0) *L 7.0 G/DL (14.2-18.0) L Hematocrit 20.5 % (42.0-52.0) L 22.3 % (42.0-52.0) L Mean Corpuscular Volume 75 FL (80-99) L 75 FL (80-99) L Mean Corpuscular Hemoglobin 23.8 PG (27.0-31.0) L 23.5 PG (27.0-31.0) L Mean Corpuscular Hemoglobin Concent 31.8 G/DL (32.0-36.0) L 31.6 G/DL (32.0-36.0) L Red Cell Distribution Width 18.8 % (11.6-14.8) H 19.2 % (11.6-14.8) H Platelet Count 187 K/UL (150-450) 202 K/UL (150-450) Mean Platelet Volume 5.4 FL (6.5-10.1) L 5.6 FL (6.5-10.1) L Neutrophils (%) (Auto) % (45.0-75.0) % (45.0-75.0) Lymphocytes (%) (Auto) % (20.0-45.0) % (20.0-45.0) Monocytes (%) (Auto) % (1.0-10.0) % (1.0-10.0) Eosinophils (%) (Auto) % (0.0-3.0) % (0.0-3.0) Basophils (%) (Auto) % (0.0-2.0) % (0.0-2.0) Differential Total Cells Counted 100 100 Neutrophils % (Manual) 74 % (45-75) 76 % (45-75) H Lymphocytes % (Manual) 18 % (20-45) L 16 % (20-45) L Monocytes % (Manual) 6 % (1-10) 7 % (1-10) Eosinophils % (Manual) 1 % (0-3) 0 % (0-3) Basophils % (Manual) 1 % (0-2) 1 % (0-2) Band Neutrophils 0 % (0-8) 0 % (0-8) Platelet Estimate Adequate Adequate Platelet Morphology Normal Normal Hypochromasia 4+ 3+ Anisocytosis 2+ 2+ Microcytosis 1+ 1+ Sodium Level 139 MMOL/L (136-145) 140 MMOL/L (136-145) Potassium Level 2.8 MMOL/L (3.5-5.1) L 3.5 MMOL/L (3.5-5.1) Chloride Level 106 MMOL/L (98-107) 108 MMOL/L (98-107) H Carbon Dioxide Level 23 MMOL/L (21-32) 23 MMOL/L (21-32) Anion Gap 10 mmol/L (5-15) 9 mmol/L (5-15) Blood Urea Nitrogen 81 mg/dL (7-18) H 81 mg/dL (7-18) H Creatinine 1.5 MG/DL (0.55-1.30) H 1.4 MG/DL (0.55-1.30) H Estimat Glomerular Filtration Rate 47.6 mL/min (>60) 51.5 mL/min (>60) Glucose Level 90 MG/DL (74-106) 82 MG/DL (74-106) Calcium Level 7.5 MG/DL (8.5-10.1) L 7.4 MG/DL (8.5-10.1) L Total Bilirubin 2.4 MG/DL (0.2-1.0) H Direct Bilirubin 1.9 MG/DL (0.0-0.3) H Aspartate Amino Transf (AST/SGOT) 42 U/L (15-37) H Alanine Aminotransferase (ALT/SGPT) 33 U/L (12-78) Alkaline Phosphatase 445 U/L (46-116) H Total Protein 5.2 G/DL (6.4-8.2) L Albumin 0.8 G/DL (3.4-5.0) L Globulin 4.4 g/dL Albumin/Globulin Ratio 0.2 (1.0-2.7) L Height (Feet): 5 Height (Inches): 5.00 Weight (Pounds): 132 Medications Current Medications Medications (Trade) Dose Ordered Sig/Andres Route PRN Reason Start Time Stop Time Status Last Admin Dose Admin Acetaminophen/ Hydrocodone Bitart ([place] 5/325) 1 tab Q4H PRN GT For Pain 07/23/18 18:49 07/30/18 18:48 Atorvastatin Calcium (Lipitor) 20 mg BEDTIME GT 07/23/18 21:00 08/22/18 20:59 07/24/18 20:47 Chlorhexidine Gluconate (Kelin-Hex 2%) 1 applic DAILY@1999 TOPIC 07/24/18 23:00 08/23/18 22:59 Dextrose (Dextrose 50%) 25 ml Q30M PRN IV Hypoglycemia 07/23/18 18:33 08/22/18 18:32 Dextrose (Dextrose 50%) 50 ml Q30M PRN IV Hypoglycemia 07/23/18 18:33 08/22/18 18:32 Furosemide (Lasix) 40 mg DAILY GT 07/24/18 09:00 08/23/18 08:59 07/24/18 08:59 Gabapentin (Neurontin) 300 mg Q8HR GT 07/23/18 22:00 08/22/18 21:59 07/24/18 14:14 Gentamicin Protocol (Gentamicin pharmacy to dose) 1 ea DAILY PRN MISC Per rx protocol 07/24/18 12:30 08/23/18 12:29 Heparin Sodium (Porcine) (Heparin 5000 units/ml) 5,000 units EVERY 12 HOURS SUBQ 07/23/18 21:00 08/22/18 20:59 07/23/18 20:35 Hydralazine HCl (Apresoline) 25 mg EVERY 8 HOURS GT 07/23/18 22:00 08/22/18 21:59 07/23/18 21:39 Hydroxyzine HCl (Vistaril) 10 mg DAILY GT 07/24/18 09:00 08/23/18 08:59 07/24/18 09:00 Insulin Aspart (NovoLOG) EVERY 6 HOURS SUBQ 07/24/18 00:00 08/23/18 00:00 Lansoprazole (Prevacid) 30 mg DAILY GT 07/24/18 09:00 08/23/18 08:59 07/24/18 08:57 Levetiracetam (Keppra) 500 mg Q12HR GT 07/24/18 21:00 08/23/18 20:59 07/24/18 20:47 Metoclopramide HCl (Reglan) 10 mg EVERY 8 HOURS GT 07/23/18 22:00 08/22/18 21:59 07/24/18 14:14 Piperacillin Sod/ Tazobactam Sod 3.375 gm/Dextrose 110 ml @ 27.5 mls/hr Q8H IVPB 07/23/18 20:30 07/30/18 20:29 07/24/18 13:19 Vancomycin HCl (Vanco rx to dose) 1 ea DAILY PRN MISC Per rx protocol 07/23/18 18:15 08/22/18 18:14 Vancomycin HCl 1 gm/Dextrose 275 ml @ 183.708 mls/hr Q24H IVPB 07/24/18 16:00 07/29/18 15:59 07/24/18 16:30 Vitamin A/Vitamin D (A & D Oint) 1 applic EVERY 12 HOURS TOPIC 07/23/18 21:00 08/22/18 20:59 07/24/18 20:48 Assessment/Plan Problem List: (1) Sacral decubitus ulcer ICD Codes: L89.159 - Pressure ulcer of sacral region, unspecified stage SNOMED: [id number] Qualifiers: Qualified Codes: L89.150 - Pressure ulcer of sacral region, unstageable (2) Decubitus ulcer Assessment & Plan: Multiple pressure injuries noted upon admission. DTPI noted to R scapula(L)2cmx (W)1.5cm. Wound bed purple with red borders. Horse -shoe shaped Full thickness pressure injury involving sacrum and bilat buttocks(L)16.8cm x (W)14.2cm. Wound with 100% mixed necrosis and slough. Borders indurated with non-blanchable erythema extending into the perineum.No exudate noted but mild odor present. Scrotal sac red and grossly swollen. Full thickness pressure injury to L Ischium.(L)3cm x (W)2cm. Wound bed with trace slough and erythema .Edges flat and adherent to base of wound.Periwound is intact. R lower ext with scattered petechiae noted to dorsal aspect, weeping small amt serous exudate. Full thickness pressure injury noted to lateral R tibia(L)17.8cm x (W) 4.4cm.Wound bed with 90% dry necrosis,10% slough/erythema along borders .Erythema noted periwound.No odor noted. R heel red/boggy with historical scar noted. Full thickness pressure injury to posterior L tibia(L)6cm x (W)3.5cm. wound bed 90% necrotic otherwise beefy red erythema noted along borders.Periwound pink and dry. Full thickness pressure injury noted to L heel (L)4cm x (W)3cm .Wound bed with 75% mixed necrosis /slough,bordering erythema .Scarring noted to periwound.Medial aspect of heel boggy with non-blanching erythema. No skin concerns noted to neck beneath trach collar. Pt also noted to have macular rash lateral R back ,Lateral R chest and R flank. Tx.Plan: Cleanse sacral and L ischial wound with saline.Apply Therahoney gel .Apply Cavilon wipe along borders and cover with Optifoam drsgs.daily and prn. Cleanse wounds L lower ext and L heel with Saline.Apply Therahoney gel.Apply Cavilon along borders.Cover with Optifoam drsg Change every 3 days and prn. Cleanse wound Lateral R tibia with Saline.Apply Therahoney with ABD pads.Apply Cavilon to R heel. Wrap with soft kerlix from base of toes. Apply Cavilon Barrier wipe to R scapula and cover with Optifoam .Change every 7 days and prn. Air Fluidized mattress. Reposition at least every 2 hours or as tolerated. Off-load heels with pillow. ICD Codes: L89.90 - Pressure ulcer of unspecified site, unspecified stage SNOMED: [id number] Qualifiers: Benyamini,Jaguar Jul 24, 2018 22:28
[2018-07-24] MEDS: Dyna-Hex 2% Top Sol 2oz TOPIC SCH (22:42)
[2018-07-25] VITALS: BP 111/62
[2018-07-25 04:00] VITALS: BP 100/62
[2018-07-25] MEDS: Piperacillin/Tazobactam 3.375 GM in D5W 110 ML IVPB SCH ×3 (05:30→20:15)
[2018-07-25] MEDS: HydrALAZINE 25mg tab GT SCH ×3 (05:52→22:57)
[2018-07-25] MEDS: NovoLOG Insulin Flexpen SUBQ SCH ×5 (06:00→22:58)
[2018-07-25] MEDS: Metoclopramide 10mg/10ml Liq GT SCH ×3 (06:21→22:57)
[2018-07-25 08:00] VITALS: BP 87/46
--- NOTE | 2018-07-25 08:15 | Nephrology Progress Note ---
Assessment/Plan Assessment/Plan A/P 1. HA versus chronic kidney disease, stage IIIB. Underlying component of ischemic acute tubular necrosis from hypotension. Hold antihypertensive medications while the patient is hypotensive. Continue p.r.n. intravenous - Cr down to 1.3 and AM labs pending 2. Anasarca. Secondary to decreased oncotic pressure from hypoalbuminemic state with a serum albumin of 1.2. Encourage high-protein G-tube feedings. 3. Sepsis. pneumonia. IV antibiotics per primary care physician and Pulmonary. 4. Seizure disorder. Keppra. 5. Chronic respiratory failure. The patient is currently chronically mechanically ventilated through tracheostomy. 6. Hypokalemia. At this time, continue to replace aggressively as needed. 7. Hypocalcemia. Pseudo due to corrected hypoalbuminemic state. Subjective Date patient seen: Jul 25, 2018 Time patient seen: 08:07 ROS Limited/Unobtainable: Yes Allergies: Coded Allergies: No Known Allergies (Unverified , 07/23/18) Subjective Patient chronically trached on ventilator Objective Last 24 Hour Vital Signs Date Time Temp Pulse Resp B/P (MAP) Pulse Ox O2 Delivery O2 Flow Rate FiO2 07/25/18 07:49 65 27 50 07/25/18 05:52 100/62 07/25/18 05:21 65 21 50 07/25/18 04:00 68 07/25/18 04:00 50 07/25/18 04:00 97.8 77 16 100/62 (75) 99 07/25/18 04:00 Mechanical Ventilator 07/25/18 03:29 69 25 50 07/25/18 01:09 73 25 50 07/25/18 00:00 97.7 65 16 111/62 (78) 99 07/25/18 00:00 Mechanical Ventilator 07/24/18 23:14 75 29 50 07/24/18 22:00 93/52 07/24/18 20:49 71 28 50 07/24/18 20:00 97.7 73 26 93/52 (66) 99 07/24/18 20:00 77 07/24/18 20:00 50 07/24/18 20:00 Mechanical Ventilator 07/24/18 19:27 67 28 50 07/24/18 16:50 81 30 50 07/24/18 16:00 69 07/24/18 16:00 97.5 73 32 92/52 (65) 93 07/24/18 16:00 50 07/24/18 16:00 Mechanical Ventilator 07/24/18 14:47 75 23 50 07/24/18 14:00 102/56 07/24/18 12:40 79 26 50 07/24/18 12:00 97.7 71 28 102/56 (71) 100 07/24/18 12:00 50 07/24/18 12:00 Mechanical Ventilator 07/24/18 12:00 65 07/24/18 11:05 75 25 50 07/24/18 08:40 78 23 50 Intake and Output 07/24/18 07/25/18 19:00 07:00 Intake Total 512.500 ml 1197.5 ml Output Total 750 ml 700 ml Balance -237.500 ml 497.5 ml Intake Oral 0 ml 0 ml IV Total 412.500 ml 137.5 ml Blood Product 1000 ml Other 100 ml 60 ml Output Urine Total 600 ml 600 ml Stool Total 100 ml 100 ml Gastric Drainage Total 50 ml Laboratory Tests 07/24/18 09:20: White Blood Count 9.4, Red Blood Count 2.99L, Hemoglobin 7.0L, Hematocrit 22.3L , Mean Corpuscular Volume 75L, Mean Corpuscular Hemoglobin 23.5L, Mean Corpuscular Hemoglobin Concent 31.6L, Red Cell Distribution Width 19.2H, Platelet Count 202, Mean Platelet Volume 5.6L, Neutrophils (%) (Auto) , Lymphocytes (%) (Auto) , Monocytes (%) (Auto) , Eosinophils (%) (Auto) , Basophils (%) (Auto) , Differential Total Cells Counted 100, Neutrophils % ( Manual) 76H, Lymphocytes % (Manual) 16L, Monocytes % (Manual) 7, Eosinophils % ( Manual) 0, Basophils % (Manual) 1, Band Neutrophils 0, Platelet Estimate Adequate, Platelet Morphology Normal, Hypochromasia 3+, Anisocytosis 2+, Microcytosis 1+ 07/24/18 12:05: Sodium Level 140, Potassium Level 3.5, Chloride Level 108H, Carbon Dioxide Level 23, Anion Gap 9, Blood Urea Nitrogen 81H, Creatinine 1.4H, Estimat Glomerular Filtration Rate 51.5, Glucose Level 82, Calcium Level 7.4L, Total Bilirubin 2.4H, Direct Bilirubin 1.9H, Aspartate Amino Transf (AST/SGOT) 42H, Alanine Aminotransferase (ALT/SGPT) 33, Alkaline Phosphatase 445H, Total Protein 5.2L, Albumin 0.8L, Globulin 4.4, Albumin/Globulin Ratio 0.2L 07/25/18 02:54: Random Gentamicin Level 4.0 Height (Feet): 5 Height (Inches): 5.00 Weight (Pounds): 132 General Appearance: no apparent distress, alert EENT: normal ENT inspection Neck: normal alignment, supple Cardiovascular: normal rate, regular rhythm Respiratory/Chest: rhonchi - bilaterally Abdomen: non tender, soft Edema: 2+ Arm (L), 2+ Arm (R), 2+ Leg (L), 2+ Leg (R), 2+ Pedal (L), 2+ Pedal ( R), 2+ Generalized Sumit Merchant MD Jul 25, 2018 08:15
[2018-07-25 08:28] LABS: BASOPHILS % (AUTO) 0.7 % (0.0-2.0); EOSINOPHILS % (AUTO) 0.3 % (0.0-3.0); HEMATOCRIT 27.5 % (42.0-52.0); HEMOGLOBIN 8.9 G/DL (14.2-18.0); LYMPHOCYTES % (AUTO) 20.9 % (20.0-45.0); MEAN CORPUSCULAR VOLUME 77 FL (80-99); MONOCYTES % (AUTO) 6.3 % (1.0-10.0); NEUTROPHILS % (AUTO) 71.9 % (45.0-75.0); PLATELET COUNT 198 K/UL (150-450); RED BLOOD COUNT 3.58 M/UL (4.70-6.10); RED CELL DISTRIBUTION WIDTH 17.7 % (11.6-14.8)
[2018-07-25 08:42] LABS: ALANINE AMINOTRANSFERASE 35 U/L (12-78); ALBUMIN/GLOBULIN RATIO 0.2 (1.0-2.7); ALKALINE PHOSPHATASE 477 U/L (46-116); ANION GAP 11 mmol/L (5-15); ASPARTATE AMINO TRANSFERASE 38 U/L (15-37); BILIRUBIN,TOTAL 2.6 MG/DL (0.2-1.0); BLOOD UREA NITROGEN 77 mg/dL (7-18); CALCIUM 7.6 MG/DL (8.5-10.1); CARBON DIOXIDE 22 MMOL/L (21-32); CHLORIDE 108 MMOL/L (98-107); CREATININE 1.4 MG/DL (0.55-1.30); POTASSIUM 3.1 MMOL/L (3.5-5.1); SODIUM 141 MMOL/L (136-145)
[2018-07-25 08:43] LABS: INR 1.3 (0.9-1.1)
[2018-07-25 09:00] LABS: BILIRUBIN,DIRECT 2.1 MG/DL (0.0-0.3)
[2018-07-25] MEDS: Heparin 5000 units/ml inj SUBQ SCH ×2 (09:00→20:18)
[2018-07-25] MEDS: Vitamin A&D Oint 2oz Tube TOPIC SCH ×2 (09:00→20:16)
[2018-07-25] MEDS: Furosemide 40mg tab GT SCH (09:00)
[2018-07-25] MEDS: levETIRAcetam 500mg/5ml Liquid GT SCH ×2 (09:36→20:15)
[2018-07-25 12:00] VITALS: BP 105/55
--- NOTE | 2018-07-25 12:09 | Infectious Diseases Prog Note ---
Assessment/Plan Assessment/Plan A; Gram negative sepsis UTI Pneumonia Cirrhosis with Ascites VDRF DM Multiple pressure ulcer Acute renal failure P: Continue Zosyn & Vancomycin Discontinue Gentamicin Will f/u cultures Subjective ROS Limited/Unobtainable: Yes Allergies: Coded Allergies: No Known Allergies (Unverified , 07/23/18) Objective Vital Signs Last 24 Hour Vital Signs Date Time Temp Pulse Resp B/P (MAP) Pulse Ox O2 Delivery O2 Flow Rate FiO2 07/25/18 11:21 66 20 50 07/25/18 09:12 65 19 50 07/25/18 08:00 50 07/25/18 08:00 98.2 66 15 87/46 (60) 100 07/25/18 08:00 67 07/25/18 08:00 Mechanical Ventilator 07/25/18 07:49 65 27 50 07/25/18 05:52 100/62 07/25/18 05:21 65 21 50 07/25/18 04:00 68 07/25/18 04:00 50 07/25/18 04:00 97.8 77 16 100/62 (75) 99 07/25/18 04:00 Mechanical Ventilator 07/25/18 03:29 69 25 50 07/25/18 01:09 73 25 50 07/25/18 00:00 97.7 65 16 111/62 (78) 99 07/25/18 00:00 Mechanical Ventilator 07/24/18 23:14 75 29 50 07/24/18 22:00 93/52 07/24/18 20:49 71 28 50 07/24/18 20:00 97.7 73 26 93/52 (66) 99 07/24/18 20:00 77 07/24/18 20:00 50 07/24/18 20:00 Mechanical Ventilator 07/24/18 19:27 67 28 50 07/24/18 16:50 81 30 50 07/24/18 16:00 69 07/24/18 16:00 97.5 73 32 92/52 (65) 93 07/24/18 16:00 50 07/24/18 16:00 Mechanical Ventilator 07/24/18 14:47 75 23 50 07/24/18 14:00 102/56 07/24/18 12:40 79 26 50 Height (Feet): 5 Height (Inches): 5.00 Weight (Pounds): 132 HEENT: status post trach Respiratory/Chest: lungs clear, other - on ventilator Cardiovascular: normal rate, other - left subclavian line Abdomen: distended, other - ascites, GT feeding Genitourinary: other - scrotal edema, suprapubic catheter Extremities: other - edema Skin: ulcers Neurologic/Psychiatric: unresponsiveness Microbiology Date/Time Source Procedure Growth Status 07/23/18 16:05 Blood Blood Culture - Preliminary Gram Negative Bacillus 1 Resulted 07/23/18 15:50 Blood Blood Culture - Preliminary Gram Negative Bacillus 1 Resulted 07/23/18 14:35 Blood Blood Culture - Preliminary NO GROWTH AFTER 24 HOURS Resulted 07/23/18 14:10 Blood Blood Culture - Preliminary NO GROWTH AFTER 24 HOURS Resulted 07/23/18 13:40 Sputum Induced Gram Stain - Final Resulted 07/23/18 13:40 Sputum Culture - Preliminary Gram Negative Bacillus 1 Gram Negative Bacillus 2 Gram Negative Bacillus 3 Resulted 07/25/18 03:27 Stool Clostridium difficile Toxin Assay - Final Complete 07/23/18 13:40 Urine,Clean Catch Urine Culture - Preliminary YEAST Resulted Laboratory Tests Test 07/24/18 12:05 07/25/18 02:54 07/25/18 07:55 Sodium Level 140 MMOL/L (136-145) 141 MMOL/L (136-145) Potassium Level 3.5 MMOL/L (3.5-5.1) 3.1 MMOL/L (3.5-5.1) L Chloride Level 108 MMOL/L (98-107) H 108 MMOL/L (98-107) H Carbon Dioxide Level 23 MMOL/L (21-32) 22 MMOL/L (21-32) Anion Gap 9 mmol/L (5-15) 11 mmol/L (5-15) Blood Urea Nitrogen 81 mg/dL (7-18) H 77 mg/dL (7-18) H Creatinine 1.4 MG/DL (0.55-1.30) H 1.4 MG/DL (0.55-1.30) H Estimat Glomerular Filtration Rate 51.5 mL/min (>60) 51.5 mL/min (>60) Glucose Level 82 MG/DL (74-106) 76 MG/DL (74-106) Calcium Level 7.4 MG/DL (8.5-10.1) L 7.6 MG/DL (8.5-10.1) L Total Bilirubin 2.4 MG/DL (0.2-1.0) H 2.6 MG/DL (0.2-1.0) H Direct Bilirubin 1.9 MG/DL (0.0-0.3) H 2.1 MG/DL (0.0-0.3) H Aspartate Amino Transf (AST/SGOT) 42 U/L (15-37) H 38 U/L (15-37) H Alanine Aminotransferase (ALT/SGPT) 33 U/L (12-78) 35 U/L (12-78) Alkaline Phosphatase 445 U/L (46-116) H 477 U/L (46-116) H Total Protein 5.2 G/DL (6.4-8.2) L 5.7 G/DL (6.4-8.2) L Albumin 0.8 G/DL (3.4-5.0) L 1.0 G/DL (3.4-5.0) L Globulin 4.4 g/dL 4.7 g/dL Albumin/Globulin Ratio 0.2 (1.0-2.7) L 0.2 (1.0-2.7) L Random Gentamicin Level 4.0 ug/mL White Blood Count 11.0 K/UL (4.8-10.8) H Red Blood Count 3.58 M/UL (4.70-6.10) L Hemoglobin 8.9 G/DL (14.2-18.0) L Hematocrit 27.5 % (42.0-52.0) L Mean Corpuscular Volume 77 FL (80-99) L Mean Corpuscular Hemoglobin 24.8 PG (27.0-31.0) L Mean Corpuscular Hemoglobin Concent 32.3 G/DL (32.0-36.0) Red Cell Distribution Width 17.7 % (11.6-14.8) H Platelet Count 198 K/UL (150-450) Mean Platelet Volume 5.7 FL (6.5-10.1) L Neutrophils (%) (Auto) 71.9 % (45.0-75.0) Lymphocytes (%) (Auto) 20.9 % (20.0-45.0) Monocytes (%) (Auto) 6.3 % (1.0-10.0) Eosinophils (%) (Auto) 0.3 % (0.0-3.0) Basophils (%) (Auto) 0.7 % (0.0-2.0) Prothrombin Time 13.3 SEC (9.30-11.50) H Prothromb Time International Ratio 1.3 (0.9-1.1) H Hepatitis A IgM Antibody Pending Hepatitis B Surface Antigen Pending Hepatitis B Core IgM Antibody Pending Hepatitis C Antibody Pending Current Medications Medications (Trade) Dose Ordered Sig/Andres Route PRN Reason Start Time Stop Time Status Last Admin Dose Admin Acetaminophen/ Hydrocodone Bitart (Antonito 5/325) 1 tab Q4H PRN GT For Pain 07/23/18 18:49 07/30/18 18:48 Atorvastatin Calcium (Lipitor) 20 mg BEDTIME GT 07/23/18 21:00 08/22/18 20:59 07/24/18 20:47 Chlorhexidine Gluconate (Kelin-Hex 2%) 1 applic DAILY@2000 TOPIC 07/24/18 23:00 08/23/18 22:59 07/24/18 22:42 Dextrose (Dextrose 50%) 25 ml Q30M PRN IV Hypoglycemia 07/23/18 18:33 08/22/18 18:32 Dextrose (Dextrose 50%) 50 ml Q30M PRN IV Hypoglycemia 07/23/18 18:33 08/22/18 18:32 Furosemide (Lasix) 40 mg DAILY GT 07/24/18 09:00 08/23/18 08:59 07/24/18 08:59 Gabapentin (Neurontin) 300 mg Q8HR GT 07/23/18 22:00 08/22/18 21:59 07/25/18 06:21 Gentamicin Protocol (Gentamicin pharmacy to dose) 1 ea DAILY PRN MISC Per rx protocol 07/24/18 12:30 08/23/18 12:29 Gentamicin Sulfate 300 mg/ Sodium Chloride 117.5 ml @ 117.5 mls/ hr Q36H IVPB 07/26/18 04:00 08/02/18 03:59 Heparin Sodium (Porcine) (Heparin 5000 units/ml) 5,000 units EVERY 12 HOURS SUBQ 07/23/18 21:00 08/22/18 20:59 07/25/18 09:00 Hydralazine HCl (Apresoline) 25 mg EVERY 8 HOURS GT 07/23/18 22:00 08/22/18 21:59 07/23/18 21:39 Hydroxyzine HCl (Vistaril) 10 mg DAILY GT 07/24/18 09:00 08/23/18 08:59 07/25/18 09:00 Insulin Aspart (NovoLOG) EVERY 6 HOURS SUBQ 07/24/18 00:00 08/23/18 00:00 Lansoprazole (Prevacid) 30 mg DAILY GT 07/24/18 09:00 08/23/18 08:59 07/25/18 09:36 Levetiracetam (Keppra) 500 mg Q12HR GT 07/24/18 21:00 08/23/18 20:59 07/25/18 09:36 Metoclopramide HCl (Reglan) 10 mg EVERY 8 HOURS GT 07/23/18 22:00 08/22/18 21:59 07/25/18 06:21 Piperacillin Sod/ Tazobactam Sod 3.375 gm/Dextrose 110 ml @ 27.5 mls/hr Q8H IVPB 07/23/18 20:30 07/30/18 20:29 07/25/18 05:30 Potassium Chloride 100 ml @ 100 mls/hr Q1H IVPB 07/25/18 11:00 07/25/18 14:59 Vancomycin HCl (Vanco rx to dose) 1 ea DAILY PRN MISC Per rx protocol 07/23/18 18:15 08/22/18 18:14 Vancomycin HCl 1 gm/Dextrose 275 ml @ 183.708 mls/hr Q24H IVPB 07/24/18 16:00 07/29/18 15:59 07/24/18 16:30 Vitamin A/Vitamin D (A & D Oint) 1 applic EVERY 12 HOURS TOPIC 07/23/18 21:00 08/22/18 20:59 07/25/18 09:00 Fabio Barkley MD Jul 25, 2018 12:09
--- NOTE | 2018-07-25 12:31 | General Progress Note ---
Assessment/Plan Assessment/Plan IMPRESSION: 1. Possible sepsis. 2. Acute on chronic renal failure. 3. Anemia. 4. Possible gastrointestinal bleed. 5. Leukocytosis. 6. Mild coagulopathy. 7. Prior history of G-tube intolerance. 8. Suprapubic catheter. 9. Respiratory failure. 10. Tracheostomy. PLAN antibiotics K replacement vent feeds monitor edema bolus feeds stabilize and dc to snf once improved impression, plan, and exam edited and reviewed in detail care discussed with RN Subjective ROS Limited/Unobtainable: Yes Allergies: Coded Allergies: No Known Allergies (Unverified , 07/23/18) Subjective on vent reviewed results Objective Last 24 Hour Vital Signs Date Time Temp Pulse Resp B/P (MAP) Pulse Ox O2 Delivery O2 Flow Rate FiO2 07/25/18 12:00 Mechanical Ventilator 07/25/18 12:00 50 07/25/18 11:21 66 20 50 07/25/18 09:12 65 19 50 07/25/18 08:00 50 07/25/18 08:00 98.2 66 15 87/46 (60) 100 07/25/18 08:00 67 07/25/18 08:00 Mechanical Ventilator 07/25/18 07:49 65 27 50 07/25/18 05:52 100/62 07/25/18 05:21 65 21 50 07/25/18 04:00 68 07/25/18 04:00 50 07/25/18 04:00 97.8 77 16 100/62 (75) 99 07/25/18 04:00 Mechanical Ventilator 07/25/18 03:29 69 25 50 07/25/18 01:09 73 25 50 07/25/18 00:00 97.7 65 16 111/62 (78) 99 07/25/18 00:00 Mechanical Ventilator 07/24/18 23:14 75 29 50 07/24/18 22:00 93/52 07/24/18 20:49 71 28 50 07/24/18 20:00 97.7 73 26 93/52 (66) 99 07/24/18 20:00 77 07/24/18 20:00 50 07/24/18 20:00 Mechanical Ventilator 07/24/18 19:27 67 28 50 07/24/18 16:50 81 30 50 07/24/18 16:00 69 07/24/18 16:00 97.5 73 32 92/52 (65) 93 07/24/18 16:00 50 07/24/18 16:00 Mechanical Ventilator 07/24/18 14:47 75 23 50 07/24/18 14:00 102/56 07/24/18 12:40 79 26 50 Intake and Output 07/24/18 07/25/18 19:00 07:00 Intake Total 512.500 ml 1197.5 ml Output Total 750 ml 700 ml Balance -237.500 ml 497.5 ml Intake Oral 0 ml 0 ml IV Total 412.500 ml 137.5 ml Blood Product 1000 ml Other 100 ml 60 ml Output Urine Total 600 ml 600 ml Stool Total 100 ml 100 ml Gastric Drainage Total 50 ml Laboratory Tests 07/25/18 02:54: Random Gentamicin Level 4.0 07/25/18 07:55: White Blood Count 11.0H, Red Blood Count 3.58L, Hemoglobin 8.9L, Hematocrit 27.5L, Mean Corpuscular Volume 77L, Mean Corpuscular Hemoglobin 24.8L, Mean Corpuscular Hemoglobin Concent 32.3, Red Cell Distribution Width 17.7H, Platelet Count 198, Mean Platelet Volume 5.7L, Neutrophils (%) (Auto) 71.9, Lymphocytes (%) (Auto) 20.9, Monocytes (%) (Auto) 6.3, Eosinophils (%) (Auto) 0.3, Basophils (%) (Auto) 0.7, Prothrombin Time 13.3H, Prothromb Time International Ratio 1.3H, Sodium Level 141, Potassium Level 3.1L, Chloride Level 108H, Carbon Dioxide Level 22, Anion Gap 11, Blood Urea Nitrogen 77H, Creatinine 1.4H, Estimat Glomerular Filtration Rate 51.5, Glucose Level 76, Calcium Level 7.6L, Total Bilirubin 2.6H, Direct Bilirubin 2.1H, Aspartate Amino Transf (AST/SGOT) 38H, Alanine Aminotransferase (ALT/SGPT) 35, Alkaline Phosphatase 477H, Total Protein 5.7L, Albumin 1.0L, Globulin 4.7, Albumin/ Globulin Ratio 0.2L, Hepatitis A IgM Antibody [Pending], Hepatitis B Surface Antigen [Pending], Hepatitis B Core IgM Antibody [Pending], Hepatitis C Antibody [Pending] Height (Feet): 5 Height (Inches): 5.00 Weight (Pounds): 132 Objective WDWN trach moderate breath sounds bilaterally without rhonchi or wheeze [id number] without MRG NABS nontender no HSM no CC diffuse edema GT poorly responsive Grant Stone MD Jul 25, 2018 12:31
[2018-07-25] MEDS ORDERED: Tubing IV Secondary IV ONE (15:16)
[2018-07-25] MEDS ORDERED: NS 275ml ONE (15:16)
--- NOTE | 2018-07-25 15:33 | General Progress Note ---
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 for surgery - GNR bacteremia - diarrhea, C Diff (-) - Resp failure / trach - dysphagia / GT - lactic acidosis and leukocytosis on admission Recommendations - Await call from - Check hepatitis serologies - transfuse PRN - PPI - follow labs - check CEA/19-9 - diagnostic paracentesis - Begin feeds Subjective Allergies: Coded Allergies: No Known Allergies (Unverified , 07/23/18) Subjective above noted BC x 2 (+) --> GNR ABD U/S --> cirrhosis, GB mass discussed with daughter, no call from yet Objective Last 24 Hour Vital Signs Date Time Temp Pulse Resp B/P (MAP) Pulse Ox O2 Delivery O2 Flow Rate FiO2 07/25/18 14:26 64 21 50 07/25/18 13:22 63 20 50 07/25/18 13:02 105/55 07/25/18 12:00 Mechanical Ventilator 07/25/18 12:00 98.9 68 15 105/55 (72) 100 07/25/18 12:00 50 07/25/18 11:37 65 07/25/18 11:21 66 20 50 07/25/18 09:12 65 19 50 07/25/18 08:00 50 07/25/18 08:00 98.2 66 15 87/46 (60) 100 07/25/18 08:00 67 07/25/18 08:00 Mechanical Ventilator 07/25/18 07:49 65 27 50 07/25/18 05:52 100/62 07/25/18 05:21 65 21 50 07/25/18 04:00 68 07/25/18 04:00 50 07/25/18 04:00 97.8 77 16 100/62 (75) 99 07/25/18 04:00 Mechanical Ventilator 07/25/18 03:29 69 25 50 07/25/18 01:09 73 25 50 07/25/18 00:00 97.7 65 16 111/62 (78) 99 07/25/18 00:00 Mechanical Ventilator 07/24/18 23:14 75 29 50 07/24/18 22:00 93/52 07/24/18 20:49 71 28 50 07/24/18 20:00 97.7 73 26 93/52 (66) 99 07/24/18 20:00 77 07/24/18 20:00 50 07/24/18 20:00 Mechanical Ventilator 07/24/18 19:27 67 28 50 07/24/18 16:50 81 30 50 07/24/18 16:00 69 07/24/18 16:00 97.5 73 32 92/52 (65) 93 07/24/18 16:00 50 07/24/18 16:00 Mechanical Ventilator Intake and Output 07/24/18 07/25/18 19:00 07:00 Intake Total 512.500 ml 1197.5 ml Output Total 750 ml 700 ml Balance -237.500 ml 497.5 ml Intake Oral 0 ml 0 ml IV Total 412.500 ml 137.5 ml Blood Product 1000 ml Other 100 ml 60 ml Output Urine Total 600 ml 600 ml Stool Total 100 ml 100 ml Gastric Drainage Total 50 ml Laboratory Tests 07/25/18 02:54: Random Gentamicin Level 4.0 07/25/18 07:55: White Blood Count 11.0H, Red Blood Count 3.58L, Hemoglobin 8.9L, Hematocrit 27.5L, Mean Corpuscular Volume 77L, Mean Corpuscular Hemoglobin 24.8L, Mean Corpuscular Hemoglobin Concent 32.3, Red Cell Distribution Width 17.7H, Platelet Count 198, Mean Platelet Volume 5.7L, Neutrophils (%) (Auto) 71.9, Lymphocytes (%) (Auto) 20.9, Monocytes (%) (Auto) 6.3, Eosinophils (%) (Auto) 0.3, Basophils (%) (Auto) 0.7, Prothrombin Time 13.3H, Prothromb Time International Ratio 1.3H, Sodium Level 141, Potassium Level 3.1L, Chloride Level 108H, Carbon Dioxide Level 22, Anion Gap 11, Blood Urea Nitrogen 77H, Creatinine 1.4H, Estimat Glomerular Filtration Rate 51.5, Glucose Level 76, Calcium Level 7.6L, Total Bilirubin 2.6H, Direct Bilirubin 2.1H, Aspartate Amino Transf (AST/SGOT) 38H, Alanine Aminotransferase (ALT/SGPT) 35, Alkaline Phosphatase 477H, Total Protein 5.7L, Albumin 1.0L, Globulin 4.7, Albumin/ Globulin Ratio 0.2L, Hepatitis A IgM Antibody [Pending], Hepatitis B Surface Antigen [Pending], Hepatitis B Core IgM Antibody [Pending], Hepatitis C Antibody [Pending] Height (Feet): 5 Height (Inches): 5.00 Weight (Pounds): 132 Objective Debilitated WM NCAT supple CTA RRR abd soft ND NT, (+) GT no edema Victorino Seay MD Jul 25, 2018 15:33
[2018-07-25 16:00] VITALS: BP 99/52
[2018-07-25] MEDS: Vancomycin 1gm/D5W 275ml IVPB SCH ×2 (16:00)
[2018-07-25 20:00] VITALS: BP 100/55
[2018-07-25] MEDS: Dyna-Hex 2% Top Sol 2oz TOPIC SCH (20:15)
[2018-07-25] MEDS: Atorvastatin 20mg tab GT SCH (20:15)
[2018-07-26] VITALS: BP 97/71
[2018-07-26 04:00] VITALS: BP 99/53
[2018-07-26] MEDS ORDERED: Gentamicin inj 300 MG in NS 110 ML IVPB SCH (04:00)
[2018-07-26] MEDS: Metoclopramide 10mg/10ml Liq GT SCH ×3 (05:06→21:00)
[2018-07-26] MEDS: Piperacillin/Tazobactam 3.375 GM in D5W 110 ML IVPB SCH (05:06)
[2018-07-26] MEDS: HydrALAZINE 25mg tab GT SCH (05:08)
[2018-07-26] MEDS: NovoLOG Insulin Flexpen SUBQ SCH ×4 (05:10→23:53)
[2018-07-26 05:40] LABS: BASOPHILS % (AUTO) 0.7 % (0.0-2.0); EOSINOPHILS % (AUTO) 0.5 % (0.0-3.0); HEMATOCRIT 26.6 % (42.0-52.0); HEMOGLOBIN 8.6 G/DL (14.2-18.0); LYMPHOCYTES % (AUTO) 25.7 % (20.0-45.0); MEAN CORPUSCULAR VOLUME 77 FL (80-99); MONOCYTES % (AUTO) 7.7 % (1.0-10.0); NEUTROPHILS % (AUTO) 65.4 % (45.0-75.0); PLATELET COUNT 193 K/UL (150-450); RED BLOOD COUNT 3.47 M/UL (4.70-6.10); RED CELL DISTRIBUTION WIDTH 17.3 % (11.6-14.8); WHITE BLOOD COUNT 8.2 K/UL (4.8-10.8)
[2018-07-26 05:45] LABS: INR 1.2 (0.9-1.1)
[2018-07-26 06:03] LABS: ALANINE AMINOTRANSFERASE 37 U/L (12-78); ALBUMIN 0.9 G/DL (3.4-5.0); ALBUMIN/GLOBULIN RATIO 0.2 (1.0-2.7); ALKALINE PHOSPHATASE 555 U/L (46-116); ANION GAP 10 mmol/L (5-15); ASPARTATE AMINO TRANSFERASE 49 U/L (15-37); BILIRUBIN,TOTAL 2.2 MG/DL (0.2-1.0); BLOOD UREA NITROGEN 72 mg/dL (7-18); CALCIUM 7.1 MG/DL (8.5-10.1); CARBON DIOXIDE 24 MMOL/L (21-32); CHLORIDE 108 MMOL/L (98-107); CREATININE 1.5 MG/DL (0.55-1.30); POTASSIUM 2.9 MMOL/L (3.5-5.1); SODIUM 142 MMOL/L (136-145)
[2018-07-26 06:06] LABS: BILIRUBIN,DIRECT 1.7 MG/DL (0.0-0.3)
[2018-07-26 08:00] VITALS: BP 101/55
[2018-07-26] MEDS: levETIRAcetam 500mg/5ml Liquid GT SCH ×2 (08:11→21:00)
[2018-07-26] MEDS: Vitamin A&D Oint 2oz Tube TOPIC SCH ×2 (08:11→21:00)
[2018-07-26] MEDS: Heparin 5000 units/ml inj SUBQ SCH ×2 (08:20→21:02)
[2018-07-26] MEDS: Furosemide 40mg tab GT SCH (08:20)
--- NOTE | 2018-07-26 08:22 | General Progress Note ---
Assessment/Plan Assessment/Plan Assessment - Dark GT aspirate, doubt GI Bleed - Anemia - Abnormal LFT, cirrhosis/ascites on Ultrasound - GB mass - patient not candidate for surgery - GNR bacteremia - diarrhea, C Diff (-) - Resp failure / trach - dysphagia / GT - lactic acidosis and leukocytosis on admission - Bacteremia, GNR Recommendations - Paracentesis - Check hepatitis serologies - transfuse PRN - PPI - follow labs - check CEA/19-9 - Continue feeds Subjective Allergies: Coded Allergies: No Known Allergies (Unverified , 07/23/18) Subjective above noted d/w at length requests conservative care, given very poor health agreed to paracentesis Objective Last 24 Hour Vital Signs Date Time Temp Pulse Resp B/P (MAP) Pulse Ox O2 Delivery O2 Flow Rate FiO2 07/26/18 06:46 57 19 60 07/26/18 05:29 58 18 60 07/26/18 05:08 99/53 07/26/18 04:00 56 07/26/18 04:00 50 07/26/18 04:00 Mechanical Ventilator 07/26/18 04:00 98.4 59 21 99/53 (68) 100 07/26/18 03:30 56 19 50 07/26/18 01:30 60 24 50 07/26/18 00:00 50 07/26/18 00:00 98.2 64 24 97/71 (80) 100 07/26/18 00:00 55 07/26/18 00:00 Mechanical Ventilator 07/25/18 23:30 63 27 50 07/25/18 22:57 102/55 07/25/18 21:22 60 22 50 07/25/18 20:00 59 07/25/18 20:00 98.1 60 16 100/55 (70) 100 07/25/18 20:00 Mechanical Ventilator 07/25/18 20:00 50 07/25/18 19:30 64 26 50 07/25/18 16:59 63 20 50 07/25/18 16:00 Mechanical Ventilator 07/25/18 16:00 50 07/25/18 16:00 62 07/25/18 16:00 98.1 70 16 99/52 (68) 100 07/25/18 14:26 64 21 50 07/25/18 13:22 63 20 50 07/25/18 13:02 105/55 07/25/18 12:00 Mechanical Ventilator 07/25/18 12:00 98.9 68 15 105/55 (72) 100 07/25/18 12:00 50 07/25/18 11:37 65 07/25/18 11:21 66 20 50 07/25/18 09:12 65 19 50 Intake and Output 07/25/18 07/26/18 19:00 07:00 Intake Total 150 ml 475 ml Output Total 800 ml 550 ml Balance -650 ml -75 ml Tube Feeding 100 ml 315 ml Other 50 ml 160 ml Output Urine Total 600 ml 375 ml Stool Total 200 ml 175 ml Laboratory Tests 07/25/18 15:25: Vancomycin Level Trough 13.1H 07/26/18 04:24: White Blood Count 8.2, Red Blood Count 3.47L, Hemoglobin 8.6L, Hematocrit 26.6L , Mean Corpuscular Volume 77L, Mean Corpuscular Hemoglobin 24.8L, Mean Corpuscular Hemoglobin Concent 32.3, Red Cell Distribution Width 17.3H, Platelet Count 193, Mean Platelet Volume 5.4L, Neutrophils (%) (Auto) 65.4, Lymphocytes (%) (Auto) 25.7, Monocytes (%) (Auto) 7.7, Eosinophils (%) (Auto) 0.5, Basophils (%) (Auto) 0.7, Prothrombin Time 13.0H, Prothromb Time International Ratio 1.2H, Sodium Level 142, Potassium Level 2.9L, Chloride Level 108H, Carbon Dioxide Level 24, Anion Gap 10, Blood Urea Nitrogen 72H, Creatinine 1.5H, Estimat Glomerular Filtration Rate 47.6, Glucose Level 91, Calcium Level 7.1L, Total Bilirubin 2.2H, Direct Bilirubin 1.7H, Aspartate Amino Transf (AST/SGOT) 49H, Alanine Aminotransferase (ALT/SGPT) 37, Alkaline Phosphatase 555H, Total Protein 5.6L, Albumin 0.9L, Globulin 4.7, Albumin/ Globulin Ratio 0.2L, Carcinoembryonic Antigen [Pending], CA 19-9 Antigen [ Pending] Height (Feet): 5 Height (Inches): 5.00 Weight (Pounds): 190 Objective Debilitated WM NCAT supple CTA RRR abd soft ND NT, (+) GT no edema Victorino Seay MD Jul 26, 2018 08:22
--- NOTE | 2018-07-26 08:36 | Nephrology Progress Note ---
Assessment/Plan Assessment/Plan A/P 1. CKD 3B. Cr stable. Avoid hypotensive volume depleted state - Lasix and hydralazine stopped 2. Anasarca. Secondary to decreased oncotic pressure from hypoalbuminemic state with a serum albumin of 1.2. - high protein feeds 3. Sepsis- pneumonia. IV antibiotics per ID 4. Seizure disorder- Keppra. 5. Chronic respiratory failure- mechanically ventilated through tracheostomy. 6. Hypokalemia- Being replaced 7. Hypocalcemia. Pseudo due to corrected hypoalbuminemic state. - check ionized in am Subjective Date patient seen: Jul 26, 2018 Time patient seen: 08:33 ROS Limited/Unobtainable: Yes Allergies: Coded Allergies: No Known Allergies (Unverified , 07/23/18) Subjective Patient chronically trached. Mechanically ventilated Objective Last 24 Hour Vital Signs Date Time Temp Pulse Resp B/P (MAP) Pulse Ox O2 Delivery O2 Flow Rate FiO2 07/26/18 08:00 98.0 59 20 101/55 (70) 100 07/26/18 06:46 57 19 60 07/26/18 05:29 58 18 60 07/26/18 05:08 99/53 07/26/18 04:00 56 07/26/18 04:00 50 07/26/18 04:00 Mechanical Ventilator 07/26/18 04:00 98.4 59 21 99/53 (68) 100 07/26/18 03:30 56 19 50 07/26/18 01:30 60 24 50 07/26/18 00:00 50 07/26/18 00:00 98.2 64 24 97/71 (80) 100 07/26/18 00:00 55 07/26/18 00:00 Mechanical Ventilator 07/25/18 23:30 63 27 50 07/25/18 22:57 102/55 07/25/18 21:22 60 22 50 07/25/18 20:00 59 07/25/18 20:00 98.1 60 16 100/55 (70) 100 07/25/18 20:00 Mechanical Ventilator 07/25/18 20:00 50 07/25/18 19:30 64 26 50 07/25/18 16:59 63 20 50 07/25/18 16:00 Mechanical Ventilator 07/25/18 16:00 50 07/25/18 16:00 62 07/25/18 16:00 98.1 70 16 99/52 (68) 100 07/25/18 14:26 64 21 50 07/25/18 13:22 63 20 50 07/25/18 13:02 105/55 07/25/18 12:00 Mechanical Ventilator 07/25/18 12:00 98.9 68 15 105/55 (72) 100 07/25/18 12:00 50 07/25/18 11:37 65 07/25/18 11:21 66 20 50 07/25/18 09:12 65 19 50 Intake and Output 07/25/18 07/26/18 19:00 07:00 Intake Total 150 ml 475 ml Output Total 800 ml 550 ml Balance -650 ml -75 ml Tube Feeding 100 ml 315 ml Other 50 ml 160 ml Output Urine Total 600 ml 375 ml Stool Total 200 ml 175 ml Laboratory Tests 07/25/18 15:25: Vancomycin Level Trough 13.1H 07/26/18 04:24: White Blood Count 8.2, Red Blood Count 3.47L, Hemoglobin 8.6L, Hematocrit 26.6L , Mean Corpuscular Volume 77L, Mean Corpuscular Hemoglobin 24.8L, Mean Corpuscular Hemoglobin Concent 32.3, Red Cell Distribution Width 17.3H, Platelet Count 193, Mean Platelet Volume 5.4L, Neutrophils (%) (Auto) 65.4, Lymphocytes (%) (Auto) 25.7, Monocytes (%) (Auto) 7.7, Eosinophils (%) (Auto) 0.5, Basophils (%) (Auto) 0.7, Prothrombin Time 13.0H, Prothromb Time International Ratio 1.2H, Sodium Level 142, Potassium Level 2.9L, Chloride Level 108H, Carbon Dioxide Level 24, Anion Gap 10, Blood Urea Nitrogen 72H, Creatinine 1.5H, Estimat Glomerular Filtration Rate 47.6, Glucose Level 91, Calcium Level 7.1L, Total Bilirubin 2.2H, Direct Bilirubin 1.7H, Aspartate Amino Transf (AST/SGOT) 49H, Alanine Aminotransferase (ALT/SGPT) 37, Alkaline Phosphatase 555H, Total Protein 5.6L, Albumin 0.9L, Globulin 4.7, Albumin/ Globulin Ratio 0.2L, Carcinoembryonic Antigen [Pending], CA 19-9 Antigen [ Pending] Height (Feet): 5 Height (Inches): 5.00 Weight (Pounds): 190 General Appearance: no apparent distress EENT: normal ENT inspection Neck: normal alignment, supple Cardiovascular: regular rhythm Respiratory/Chest: lungs clear, normal breath sounds Abdomen: non tender, soft Edema: no edema noted Arm (L), no edema noted Arm (R), no edema noted Leg (L), no edema noted Leg (R), no edema noted Pedal (L), no edema noted Pedal (R), no edema noted Generalized Sumit Merchant MD Jul 26, 2018 08:36
--- NOTE | 2018-07-26 10:39 | Infectious Diseases Prog Note ---
"Assessment/Plan Assessment/Plan antibiotics : vancomycin Iv, zosyn A 1. klebsiella | gram positive sepsis 2. klebsiella | e.coli | pseudomonas pneumonia 3. fungal UTI 4. respiratory failure 5. renal failure 6. seizures 7. diabetes mellitus P 1. continue iv vancomycin 2. d/c zosyn 3. start meropenem, fluconazole, bactrim 4. will follow up cultures 5. 2 d echo Subjective ROS Limited/Unobtainable: Yes Allergies: Coded Allergies: No Known Allergies (Unverified , 07/23/18) Objective Vital Signs Last 24 Hour Vital Signs Date Time Temp Pulse Resp B/P (MAP) Pulse Ox O2 Delivery O2 Flow Rate FiO2 07/26/18 09:20 58 19 60 07/26/18 09:04 56 07/26/18 08:00 98.0 59 20 101/55 (70) 100 07/26/18 08:00 Mechanical Ventilator 07/26/18 08:00 40 07/26/18 06:46 57 19 60 07/26/18 05:29 58 18 60 07/26/18 05:08 99/53 07/26/18 04:00 56 07/26/18 04:00 50 07/26/18 04:00 Mechanical Ventilator 07/26/18 04:00 98.4 59 21 99/53 (68) 100 07/26/18 03:30 56 19 50 07/26/18 01:30 60 24 50 07/26/18 00:00 50 07/26/18 00:00 98.2 64 24 97/71 (80) 100 07/26/18 00:00 55 07/26/18 00:00 Mechanical Ventilator 07/25/18 23:30 63 27 50 07/25/18 22:57 102/55 07/25/18 21:22 60 22 50 07/25/18 20:00 59 07/25/18 20:00 98.1 60 16 100/55 (70) 100 07/25/18 20:00 Mechanical Ventilator 07/25/18 20:00 50 07/25/18 19:30 64 26 50 07/25/18 16:59 63 20 50 07/25/18 16:00 Mechanical Ventilator 07/25/18 16:00 50 07/25/18 16:00 62 07/25/18 16:00 98.1 70 16 99/52 (68) 100 07/25/18 14:26 64 21 50 07/25/18 13:22 63 20 50 07/25/18 13:02 105/55 07/25/18 12:00 Mechanical Ventilator 07/25/18 12:00 98.9 68 15 105/55 (72) 100 07/25/18 12:00 50 07/25/18 11:37 65 07/25/18 11:21 66 20 50 Height (Feet): 5 Height (Inches): 5.00 Weight (Pounds): 190 HEENT: status post trach Respiratory/Chest: rhonchi - left Cardiovascular: normal rate, regular rhythm, no gallop/murmur Abdomen: soft, non tender, other - GT Extremities: other - + edema, left subclavian catheter Microbiology Date/Time Source Procedure Growth Status 07/23/18 16:05 Blood Blood Culture - Preliminary Klebsiella Pneumoniae Gram Positive Cocci Resulted 07/23/18 15:50 Blood Blood Culture - Preliminary Gram Negative Bacillus 1 Gram Negative Bacillus 2 Gram Positive Cocci Resulted 07/23/18 14:35 Blood Blood Culture - Preliminary NO GROWTH AFTER 48 HOURS Resulted 07/23/18 14:10 Blood Blood Culture - Preliminary NO GROWTH AFTER 48 HOURS Resulted 07/23/18 13:40 Sputum Induced Gram Stain - Final Resulted 07/23/18 13:40 Sputum Culture - Preliminary Pseudomonas Aeruginosa Escherichia Coli Klebsiella Pneumoniae Resulted 07/25/18 03:27 Stool Clostridium difficile Toxin Assay - Final Complete 07/23/18 13:40 Urine,Clean Catch Urine Culture - Final Negrita Tropicalis Complete Laboratory Tests Test 07/25/18 15:25 07/26/18 04:24 Vancomycin Level Trough 13.1 ug/mL (5.0-12.0) H White Blood Count 8.2 K/UL (4.8-10.8) Red Blood Count 3.47 M/UL (4.70-6.10) L Hemoglobin 8.6 G/DL (14.2-18.0) L Hematocrit 26.6 % (42.0-52.0) L Mean Corpuscular Volume 77 FL (80-99) L Mean Corpuscular Hemoglobin 24.8 PG (27.0-31.0) L Mean Corpuscular Hemoglobin Concent 32.3 G/DL (32.0-36.0) Red Cell Distribution Width 17.3 % (11.6-14.8) H Platelet Count 193 K/UL (150-450) Mean Platelet Volume 5.4 FL (6.5-10.1) L Neutrophils (%) (Auto) 65.4 % (45.0-75.0) Lymphocytes (%) (Auto) 25.7 % (20.0-45.0) Monocytes (%) (Auto) 7.7 % (1.0-10.0) Eosinophils (%) (Auto) 0.5 % (0.0-3.0) Basophils (%) (Auto) 0.7 % (0.0-2.0) Prothrombin Time 13.0 SEC (9.30-11.50) H Prothromb Time International Ratio 1.2 (0.9-1.1) H Sodium Level 142 MMOL/L (136-145) Potassium Level 2.9 MMOL/L (3.5-5.1) L Chloride Level 108 MMOL/L (98-107) H Carbon Dioxide Level 24 MMOL/L (21-32) Anion Gap 10 mmol/L (5-15) Blood Urea Nitrogen 72 mg/dL (7-18) H Creatinine 1.5 MG/DL (0.55-1.30) H Estimat Glomerular Filtration Rate 47.6 mL/min (>60) Glucose Level 91 MG/DL (74-106) Calcium Level 7.1 MG/DL (8.5-10.1) L Total Bilirubin 2.2 MG/DL (0.2-1.0) H Direct Bilirubin 1.7 MG/DL (0.0-0.3) H Aspartate Amino Transf (AST/SGOT) 49 U/L (15-37) H Alanine Aminotransferase (ALT/SGPT) 37 U/L (12-78) Alkaline Phosphatase 555 U/L (46-116) H Total Protein 5.6 G/DL (6.4-8.2) L Albumin 0.9 G/DL (3.4-5.0) L Globulin 4.7 g/dL Albumin/Globulin Ratio 0.2 (1.0-2.7) L Carcinoembryonic Antigen Pending CA 19-9 Antigen Pending Current Medications Medications (Trade) Dose Ordered Sig/Andres Route PRN Reason Start Time Stop Time Status Last Admin Dose Admin Acetaminophen/ Hydrocodone Bitart ([place] 5/325) 1 tab Q4H PRN GT For Pain 07/23/18 18:49 07/30/18 18:48 Atorvastatin Calcium (Lipitor) 20 mg BEDTIME GT 07/23/18 21:00 08/22/18 20:59 07/25/18 20:15 Chlorhexidine Gluconate (Kelin-Hex 2%) 1 applic DAILY@2000 TOPIC 07/24/18 23:00 08/23/18 22:59 07/25/18 20:15 Dextrose (Dextrose 50%) 25 ml Q30M PRN IV Hypoglycemia 07/23/18 18:33 08/22/18 18:32 Dextrose (Dextrose 50%) 50 ml Q30M PRN IV Hypoglycemia 07/23/18 18:33 08/22/18 18:32 Gabapentin (Neurontin) 300 mg Q8HR GT 07/23/18 22:00 08/22/18 21:59 07/26/18 05:08 Heparin Sodium (Porcine) (Heparin 5000 units/ml) 5,000 units EVERY 12 HOURS SUBQ 07/23/18 21:00 08/22/18 20:59 07/25/18 20:18 Hydroxyzine HCl (Vistaril) 10 mg DAILY GT 07/24/18 09:00 08/23/18 08:59 07/26/18 08:20 Insulin Aspart (NovoLOG) EVERY 6 HOURS SUBQ 07/24/18 00:00 08/23/18 00:00 07/25/18 22:58 Lansoprazole (Prevacid) 30 mg DAILY GT 07/24/18 09:00 08/23/18 08:59 07/26/18 08:11 Levetiracetam (Keppra) 500 mg Q12HR GT 07/24/18 21:00 08/23/18 20:59 07/26/18 08:11 Metoclopramide HCl (Reglan) 10 mg EVERY 8 HOURS GT 07/23/18 22:00 08/22/18 21:59 07/26/18 05:06 Piperacillin Sod/ Tazobactam Sod 3.375 gm/Dextrose 110 ml @ 27.5 mls/hr Q8H IVPB 07/23/18 20:30 07/30/18 20:29 07/26/18 05:06 Potassium Chloride 100 ml @ 50 mls/hr Q2H IVPB 07/26/18 08:00 07/26/18 11:59 07/26/18 10:11 Vancomycin HCl (Vanco rx to dose) 1 ea DAILY PRN MISC Per rx protocol 07/23/18 18:15 08/22/18 18:14 Vancomycin HCl 1 gm/Dextrose 275 ml @ 183.708 mls/hr Q24H IVPB 07/24/18 16:00 07/29/18 15:59 07/25/18 16:00 Vitamin A/Vitamin D (A & D Oint) 1 applic EVERY 12 HOURS TOPIC 07/23/18 21:00 08/22/18 20:59 07/26/18 08:11 Franny Cr MD Jul 26, 2018 10:39"
[2018-07-26] MEDS: Fluconazole 100mg tab ORAL SCH (11:02)
[2018-07-26] MEDS: Meropenem 500 MG in NS 55 ML IVPB SCH ×2 (11:47→23:52)
[2018-07-26 12:00] VITALS: BP 99/55
--- NOTE | 2018-07-26 15:29 | Pre-Procedure Note/Attestation ---
Pre-Procedure Note/Attestation Complete Prior to Procedure Planned Procedure: not applicable Procedure Narrative: Paracentesis Indications for Procedure Pre-Operative Diagnosis: ascites Attestation I attest that I discussed the nature of the procedure; its benefits; risks and complications; and alternatives (and the risks and benefits of such alternatives ), prior to the procedure, with the patient (or the patient's legal freight representative). I attest that, if there was a reasonable possibility of needing a blood transfusion, the patient (or the patient's legal freight representative) was given the [facility] standardized written summary, pursuant to the [employer] Narendra Blood Safety Act ([place] Health and Safety Code # 1645, as amended). I attest that I re-evaluated the patient just prior to the surgery and that there has been no change in the patient's H&P, except as documented below: Discussed by phone with pt's. daughter Santos at 1430 Jorge Hinds MD Jul 26, 2018 15:29
--- NOTE | 2018-07-26 15:30 | Brief Operative Note ---
Immediate Post Operative Note Operative Note Pre-op Diagnosis: ascites Procedure: US guided paracentesis Post-op Diagnosis: same as pre-op Findings: consistent w/pre-op dx studies Surgeon: Keenan HINDS Anesthesia: local Specimen: yes - 50 ml fluid sent to lab Complications: none Condition: stable Fluids: none Implant(s) used?: No Jorge Hinds MD Jul 26, 2018 15:30
[2018-07-26] MEDS: Vancomycin 1gm/D5W 275ml IVPB SCH ×2 (15:49)
[2018-07-26 16:00] VITALS: BP 102/51
--- NOTE | 2018-07-26 17:15 | Diagnostic Imaging Report ---
Indications: Ascites Technique: Ultrasound used to localize optimal puncture site. Sterile prepping and draping right lower quadrant. Local anesthesia with 1% lidocaine. Under real-time ultrasound guidance, puncture peritoneal space using paracentesis needle. Stylet removed. Catheter placed to vacuum bottle suction. Total 4.2 liters of fluid aspirated. Patient tolerated procedure well, without immediate complication. A specimen was sent to the lab for analysis Findings: Followup sonography demonstrates near complete resolution of peritoneal fluid. Impression: Successful ultrasound-guided paracentesis, yielding 4.2 liters of fluid
[2018-07-26 20:00] VITALS: BP 99/56
[2018-07-26] MEDS: Dyna-Hex 2% Top Sol 2oz TOPIC SCH (20:59)
[2018-07-26] MEDS: Bactrim SS Tab ORAL SCH (21:00)
[2018-07-26] MEDS: Atorvastatin 20mg tab GT SCH (21:03)
--- NOTE | 2018-07-26 21:40 | Pulmonology Progress Note ---
Assessment/Plan Assessment/Plan Assessment/Plan IMPRESSION: 1. Possible pneumonia/sepsis 2. Acute on chronic renal failure. 3. Anemia. 4. Possible gastrointestinal bleed. 5. Leukocytosis. 6. Mild coagulopathy. 7. Prior history of G-tube intolerance. 8. Suprapubic catheter. 9. Respiratory failure. 10. Tracheostomy. PLAN antibiotics K replacement vent feeds monitor edema bolus feeds stabilize and dc to snf once improved impression, plan, and exam edited and reviewed in detail care discussed with RN Subjective ROS Limited/Unobtainable: Yes Allergies: Coded Allergies: No Known Allergies (Unverified , 07/23/18) Subjective on vent reviewed results Objective Vital Signs noted Date Time Temp Pulse Resp B/P (MAP) Pulse Ox O2 Delivery O2 Flow Rate FiO2 07/25/18 12:00 Mechanical Ventilator 07/25/18 12:00 50 07/25/18 11:21 66 20 50 07/25/18 09:12 65 19 50 07/25/18 08:00 50 07/25/18 08:00 98.2 66 15 87/46 (60) 100 07/25/18 08:00 67 07/25/18 08:00 Mechanical Ventilator 07/25/18 07:49 65 27 50 07/25/18 05:52 100/62 07/25/18 05:21 65 21 50 07/25/18 04:00 68 07/25/18 04:00 50 07/25/18 04:00 97.8 77 16 100/62 (75) 99 07/25/18 04:00 Mechanical Ventilator 07/25/18 03:29 69 25 50 07/25/18 01:09 73 25 50 07/25/18 00:00 97.7 65 16 111/62 (78) 99 07/25/18 00:00 Mechanical Ventilator 07/24/18 23:14 75 29 50 07/24/18 22:00 93/52 07/24/18 20:49 71 28 50 07/24/18 20:00 97.7 73 26 93/52 (66) 99 07/24/18 20:00 77 07/24/18 20:00 50 07/24/18 20:00 Mechanical Ventilator 07/24/18 19:27 67 28 50 07/24/18 16:50 81 30 50 07/24/18 16:00 69 07/24/18 16:00 97.5 73 32 92/52 (65) 93 07/24/18 16:00 50 07/24/18 16:00 Mechanical Ventilator 07/24/18 14:47 75 23 50 07/24/18 14:00 102/56 07/24/18 12:40 79 26 50 Intake and Output 07/24/18 07/25/18 19:00 07:00 Intake Total 512.500 ml 1197.5 ml Output Total 750 ml 700 ml Balance -237.500 ml 497.5 ml Intake Oral 0 ml 0 ml IV Total 412.500 ml 137.5 ml Blood Product 1000 ml Other 100 ml 60 ml Output Urine Total 600 ml 600 ml Stool Total 100 ml 100 ml Gastric Drainage Total 50 ml Laboratory Tests 07/25/18 02:54: Random Gentamicin Level 4.0 07/25/18 07:55: White Blood Count 11.0H, Red Blood Count 3.58L, Hemoglobin 8.9L, Hematocrit 27.5L, Mean Corpuscular Volume 77L, Mean Corpuscular Hemoglobin 24.8L, Mean Corpuscular Hemoglobin Concent 32.3, Red Cell Distribution Width 17.7H, Platelet Count 198, Mean Platelet Volume 5.7L, Neutrophils (%) (Auto) 71.9, Lymphocytes (%) (Auto) 20.9, Monocytes (%) (Auto) 6.3, Eosinophils (%) (Auto) 0.3, Basophils (%) (Auto) 0.7, Prothrombin Time 13.3H, Prothromb Time International Ratio 1.3H, Sodium Level 141, Potassium Level 3.1L, Chloride Level 108H, Carbon Dioxide Level 22, Anion Gap 11, Blood Urea Nitrogen 77H, Creatinine 1.4H, Estimat Glomerular Filtration Rate 51.5, Glucose Level 76, Calcium Level 7.6L, Total Bilirubin 2.6H, Direct Bilirubin 2.1H, Aspartate Amino Transf (AST/SGOT) 38H, Alanine Aminotransferase (ALT/SGPT) 35, Alkaline Phosphatase 477H, Total Protein 5.7L, Albumin 1.0L, Globulin 4.7, Albumin/ Globulin Ratio 0.2L, Hepatitis A IgM Antibody [Pending], Hepatitis B Surface Antigen [Pending], Hepatitis B Core IgM Antibody [Pending], Hepatitis C Antibody [Pending] Height (Feet): 5 Height (Inches): 5.00 Weight (Pounds): 132 Objective WDWN trach moderate breath sounds bilaterally without rhonchi or wheeze [id number] without MRG NABS nontender no HSM no CC diffuse edema GT poorly responsive Subjective ROS Limited/Unobtainable: No Allergies: Coded Allergies: No Known Allergies (Unverified , 07/23/18) Objective Last 24 Hour Vital Signs Date Time Temp Pulse Resp B/P (MAP) Pulse Ox O2 Delivery O2 Flow Rate FiO2 07/26/18 21:14 58 18 60 07/26/18 20:00 98.2 55 21 99/56 (70) 100 07/26/18 20:00 40 07/26/18 20:00 55 07/26/18 20:00 Mechanical Ventilator 07/26/18 18:48 56 26 60 07/26/18 17:27 57 24 60 07/26/18 16:00 40 07/26/18 16:00 Mechanical Ventilator 07/26/18 16:00 58 07/26/18 16:00 97.7 61 22 102/51 (68) 100 07/26/18 15:18 55 22 60 07/26/18 12:30 58 22 60 07/26/18 12:00 Mechanical Ventilator 07/26/18 12:00 40 07/26/18 12:00 97.9 57 22 99/55 (70) 100 07/26/18 11:36 58 07/26/18 11:06 58 22 60 07/26/18 09:20 58 19 60 07/26/18 09:04 56 07/26/18 08:00 98.0 59 20 101/55 (70) 100 07/26/18 08:00 Mechanical Ventilator 07/26/18 08:00 40 07/26/18 06:46 57 19 60 07/26/18 05:29 58 18 60 07/26/18 05:08 99/53 07/26/18 04:00 56 07/26/18 04:00 50 07/26/18 04:00 Mechanical Ventilator 07/26/18 04:00 98.4 59 21 99/53 (68) 100 07/26/18 03:30 56 19 50 07/26/18 01:30 60 24 50 07/26/18 00:00 50 07/26/18 00:00 98.2 64 24 97/71 (80) 100 07/26/18 00:00 55 07/26/18 00:00 Mechanical Ventilator 07/25/18 23:30 63 27 50 07/25/18 22:57 102/55 Intake and Output 07/25/18 07/26/18 19:00 07:00 Intake Total 150 ml 475 ml Output Total 800 ml 550 ml Balance -650 ml -75 ml Tube Feeding 100 ml 315 ml Other 50 ml 160 ml Output Urine Total 600 ml 375 ml Stool Total 200 ml 175 ml Microbiology Date/Time Source Procedure Growth Status 07/25/18 03:27 Stool Clostridium difficile Toxin Assay - Final Complete Laboratory Tests 07/26/18 04:24: White Blood Count 8.2, Red Blood Count 3.47L, Hemoglobin 8.6L, Hematocrit 26.6L , Mean Corpuscular Volume 77L, Mean Corpuscular Hemoglobin 24.8L, Mean Corpuscular Hemoglobin Concent 32.3, Red Cell Distribution Width 17.3H, Platelet Count 193, Mean Platelet Volume 5.4L, Neutrophils (%) (Auto) 65.4, Lymphocytes (%) (Auto) 25.7, Monocytes (%) (Auto) 7.7, Eosinophils (%) (Auto) 0.5, Basophils (%) (Auto) 0.7, Prothrombin Time 13.0H, Prothromb Time International Ratio 1.2H, Sodium Level 142, Potassium Level 2.9L, Chloride Level 108H, Carbon Dioxide Level 24, Anion Gap 10, Blood Urea Nitrogen 72H, Creatinine 1.5H, Estimat Glomerular Filtration Rate 47.6, Glucose Level 91, Calcium Level 7.1L, Total Bilirubin 2.2H, Direct Bilirubin 1.7H, Aspartate Amino Transf (AST/SGOT) 49H, Alanine Aminotransferase (ALT/SGPT) 37, Alkaline Phosphatase 555H, Total Protein 5.6L, Albumin 0.9L, Globulin 4.7, Albumin/ Globulin Ratio 0.2L, Carcinoembryonic Antigen [Pending], [place] 19-9 Antigen [ Pending] 07/26/18 16:10: Body Fluid Source Paracentesis, Body Fluid Volume 24 ml, Body Fluid Appearance Yellow/clear, Body Fluid RBC 64, Body Fluid Total Nucleated Cells 55, Body Fluid Polynuclear WBCs (%) 15, Body Fluid Mononuclear WBCs (%) 81, Body Fluid Mesothelial Cells (%) 4, Body Fluid Albumin [Pending] Current Medications Medications (Trade) Dose Ordered Sig/Andres Route PRN Reason Start Time Stop Time Status Last Admin Dose Admin Acetaminophen/ Hydrocodone Bitart ([place] 5/325) 1 tab Q4H PRN GT For Pain 07/23/18 18:49 07/30/18 18:48 Atorvastatin Calcium (Lipitor) 20 mg BEDTIME GT 07/23/18 21:00 08/22/18 20:59 07/26/18 21:03 Chlorhexidine Gluconate (Kelin-Hex 2%) 1 applic DAILY@1999 TOPIC 07/24/18 23:00 08/23/18 22:59 07/26/18 20:59 Dextrose (Dextrose 50%) 25 ml Q30M PRN IV Hypoglycemia 07/23/18 18:33 08/22/18 18:32 Dextrose (Dextrose 50%) 50 ml Q30M PRN IV Hypoglycemia 07/23/18 18:33 08/22/18 18:32 Fluconazole (Diflucan) 100 mg DAILY ORAL 07/26/18 10:44 08/02/18 10:43 07/26/18 11:02 Gabapentin (Neurontin) 300 mg Q8HR GT 07/23/18 22:00 08/22/18 21:59 07/26/18 21:00 Heparin Sodium (Porcine) (Heparin 5000 units/ml) 5,000 units EVERY 12 HOURS SUBQ 07/23/18 21:00 08/22/18 20:59 07/26/18 21:02 Hydroxyzine HCl (Vistaril) 10 mg DAILY GT 07/24/18 09:00 08/23/18 08:59 07/26/18 08:20 Insulin Aspart (NovoLOG) EVERY 6 HOURS SUBQ 07/24/18 00:00 08/23/18 00:00 07/26/18 18:02 Lansoprazole (Prevacid) 30 mg DAILY GT 07/24/18 09:00 08/23/18 08:59 07/26/18 08:11 Levetiracetam (Keppra) 500 mg Q12HR GT 07/24/18 21:00 08/23/18 20:59 07/26/18 21:00 Meropenem 500 mg/ Sodium Chloride 55 ml @ 110 mls/hr Q12H IVPB 07/26/18 12:00 07/31/18 11:59 07/26/18 11:47 Metoclopramide HCl (Reglan) 10 mg EVERY 8 HOURS GT 07/23/18 22:00 08/22/18 21:59 07/26/18 21:00 Trimethoprim/ Sulfamethoxazole (Bactrim Single Strength) 1 tab EVERY 12 HOURS ORAL 07/26/18 21:00 08/02/18 20:59 07/26/18 21:00 Vancomycin HCl (Vanco rx to dose) 1 ea DAILY PRN MISC Per rx protocol 07/23/18 18:15 08/22/18 18:14 Vancomycin HCl 1 gm/Dextrose 275 ml @ 183.708 mls/hr Q24H IVPB 07/24/18 16:00 07/29/18 15:59 07/26/18 15:49 Vitamin A/Vitamin D (A & D Oint) 1 applic EVERY 12 HOURS TOPIC 07/23/18 21:00 08/22/18 20:59 07/26/18 21:00 Jese Mark MD Jul 26, 2018 21:40
[2018-07-27] VITALS: BP 97/57
[2018-07-27 04:00] VITALS: BP 111/59
[2018-07-27] MEDS: Metoclopramide 10mg/10ml Liq GT SCH ×3 (05:21→21:23)
[2018-07-27] MEDS: NovoLOG Insulin Flexpen SUBQ SCH ×4 (05:21→23:26)
[2018-07-27 06:15] LABS: ANION GAP 10 mmol/L (5-15); BLOOD UREA NITROGEN 68 mg/dL (7-18); CALCIUM 7.3 MG/DL (8.5-10.1); CARBON DIOXIDE 22 MMOL/L (21-32); CHLORIDE 110 MMOL/L (98-107); CREATININE 1.4 MG/DL (0.55-1.30); POTASSIUM 3.2 MMOL/L (3.5-5.1); SODIUM 142 MMOL/L (136-145)
[2018-07-27 07:31] VITALS: BP 106/57
--- NOTE | 2018-07-27 08:15 | Nephrology Progress Note ---
Assessment/Plan Assessment/Plan A/P 1. CKD 3B. Cr stable at 1.4 - Lasix and hydralazine stopped. BUN down to 68 2. Anasarca. Secondary to decreased oncotic pressure from hypoalbuminemic state - high protein feeds 3. Sepsis- pneumonia. IV antibiotics per ID 4. Seizure disorder- Keppra. 5. Chronic respiratory failure- mechanically ventilated through tracheostomy. 6. Hypokalemia- replace today 7. Hypocalcemia- Ionized level low, replace Subjective Date patient seen: Jul 27, 2018 Time patient seen: 08:13 ROS Limited/Unobtainable: Yes Allergies: Coded Allergies: No Known Allergies (Unverified , 07/23/18) Subjective Patient chronically trached, mechanically ventilated Objective Last 24 Hour Vital Signs Date Time Temp Pulse Resp B/P (MAP) Pulse Ox O2 Delivery O2 Flow Rate FiO2 07/27/18 07:31 97.3 55 23 106/57 (73) 100 07/27/18 07:05 56 23 35 07/27/18 05:29 55 24 35 07/27/18 04:00 40 07/27/18 04:00 98.3 51 22 111/59 (76) 100 07/27/18 04:00 Mechanical Ventilator 07/27/18 04:00 52 07/27/18 02:40 56 20 35 07/27/18 01:10 61 21 35 07/27/18 00:00 98.0 54 24 97/57 (70) 100 07/27/18 00:00 Mechanical Ventilator 07/27/18 00:00 40 07/27/18 00:00 54 07/26/18 23:11 55 20 40 07/26/18 21:14 58 18 60 07/26/18 20:00 98.2 55 21 99/56 (70) 100 07/26/18 20:00 40 07/26/18 20:00 55 07/26/18 20:00 Mechanical Ventilator 07/26/18 18:48 56 26 60 07/26/18 17:27 57 24 60 07/26/18 16:00 40 07/26/18 16:00 Mechanical Ventilator 07/26/18 16:00 58 07/26/18 16:00 97.7 61 22 102/51 (68) 100 07/26/18 15:18 55 22 60 07/26/18 12:30 58 22 60 07/26/18 12:00 Mechanical Ventilator 07/26/18 12:00 40 07/26/18 12:00 97.9 57 22 99/55 (70) 100 07/26/18 11:36 58 07/26/18 11:06 58 22 60 07/26/18 09:20 58 19 60 07/26/18 09:04 56 Intake and Output 07/26/18 07/27/18 19:00 07:00 Intake Total 1385.000 ml 730 ml Output Total 600 ml 695 ml Balance 785.000 ml 35 ml IV Total 530.000 ml Tube Feeding 705 ml 650 ml Other 150 ml 80 ml Output Urine Total 500 ml 620 ml Stool Total 100 ml 75 ml Laboratory Tests 07/26/18 16:10: Body Fluid Source Paracentesis, Body Fluid Volume 24 ml, Body Fluid Appearance Yellow/clear, Body Fluid RBC 64, Body Fluid Total Nucleated Cells 55, Body Fluid Polynuclear WBCs (%) 15, Body Fluid Mononuclear WBCs (%) 81, Body Fluid Mesothelial Cells (%) 4, Body Fluid Albumin [Pending] 07/27/18 04:47: Sodium Level 142, Potassium Level 3.2L, Chloride Level 110H, Carbon Dioxide Level 22, Anion Gap 10, Blood Urea Nitrogen 68H, Creatinine 1.4H, Estimat Glomerular Filtration Rate 51.5, Glucose Level 103, Calcium Level 7.3L, Ionized Calcium (Measured) 1.06L Height (Feet): 5 Height (Inches): 5.00 Weight (Pounds): 190 General Appearance: no apparent distress EENT: normal ENT inspection Neck: normal alignment, supple Cardiovascular: normal rate, regular rhythm Respiratory/Chest: crackles/rales Abdomen: non tender, soft Edema: 1+ Arm (L), 1+ Arm (R), 1+ Leg (L), 1+ Leg (R), 1+ Pedal (L), 1+ Pedal ( R), 1+ Generalized Sumit Merchant MD Jul 27, 2018 08:14
[2018-07-27] MEDS: levETIRAcetam 500mg/5ml Liquid GT SCH ×2 (08:20→21:23)
[2018-07-27] MEDS: Fluconazole 100mg tab ORAL SCH (08:21)
[2018-07-27] MEDS: Bactrim SS Tab ORAL SCH ×2 (08:21→21:24)
[2018-07-27] MEDS: Heparin 5000 units/ml inj SUBQ SCH ×2 (08:25→21:25)
[2018-07-27] MEDS: Vitamin A&D Oint 2oz Tube TOPIC SCH ×2 (08:37→21:24)
--- NOTE | 2018-07-27 09:00 | Pulmonology Progress Note ---
Assessment/Plan Assessment/Plan IMPRESSION: 1. Possible sepsis. 2. Acute on chronic renal failure. 3. Anemia. 4. Possible gastrointestinal bleed. 5. Leukocytosis. 6. Mild coagulopathy. 7. Prior history of G-tube intolerance. 8. Suprapubic catheter. 9. Respiratory failure. 10. Tracheostomy 11. ascites, s/p tap 12. MDR PLAN ID and gi noted iv antibiotics monitor fluid shifts check labs stabilize vent feeds dc to snf once stable impression, plan, and exam edited and reviewed in detail care discussed with RN Subjective ROS Limited/Unobtainable: Yes Allergies: Coded Allergies: No Known Allergies (Unverified , 07/23/18) Subjective CARE NOTED appreciated gi Objective Last 24 Hour Vital Signs Date Time Temp Pulse Resp B/P (MAP) Pulse Ox O2 Delivery O2 Flow Rate FiO2 07/27/18 07:31 97.3 55 23 106/57 (73) 100 07/27/18 07:31 54 07/27/18 07:05 56 23 35 07/27/18 05:29 55 24 35 07/27/18 04:00 40 07/27/18 04:00 98.3 51 22 111/59 (76) 100 07/27/18 04:00 Mechanical Ventilator 07/27/18 04:00 52 07/27/18 02:40 56 20 35 07/27/18 01:10 61 21 35 07/27/18 00:00 98.0 54 24 97/57 (70) 100 07/27/18 00:00 Mechanical Ventilator 07/27/18 00:00 40 07/27/18 00:00 54 07/26/18 23:11 55 20 40 07/26/18 21:14 58 18 60 07/26/18 20:00 98.2 55 21 99/56 (70) 100 07/26/18 20:00 40 07/26/18 20:00 55 07/26/18 20:00 Mechanical Ventilator 07/26/18 18:48 56 26 60 07/26/18 17:27 57 24 60 07/26/18 16:00 40 07/26/18 16:00 Mechanical Ventilator 07/26/18 16:00 58 07/26/18 16:00 97.7 61 22 102/51 (68) 100 07/26/18 15:18 55 22 60 10/31/18 12:30 58 22 60 07/26/18 12:00 Mechanical Ventilator 07/26/18 12:00 40 07/26/18 12:00 97.9 57 22 99/55 (70) 100 07/26/18 11:36 58 07/26/18 11:06 58 22 60 07/26/18 09:20 58 19 60 07/26/18 09:04 56 Intake and Output 07/26/18 07/27/18 19:00 07:00 Intake Total 1385.000 ml 730 ml Output Total 600 ml 695 ml Balance 785.000 ml 35 ml IV Total 530.000 ml Tube Feeding 705 ml 650 ml Other 150 ml 80 ml Output Urine Total 500 ml 620 ml Stool Total 100 ml 75 ml Objective GENERAL: Chronically ill-appearing male. VITAL SIGNS: Reviewed. HEENT: Negative. NECK: Supple. LUNGS: With coarse breath sounds. CARDIAC: Normal S1 and S2. Slightly tachycardic. ABDOMEN: Soft. G-tube in place. less distended EXTREMITIES: No edema. GENITOURINARY: He has suprapubic catheter. SKIN: With anasarca and healed decubitus. . Microbiology Date/Time Source Procedure Growth Status 07/25/18 03:27 Stool Clostridium difficile Toxin Assay - Final Complete Laboratory Tests 07/26/18 16:10: Body Fluid Source Paracentesis, Body Fluid Volume 24 ml, Body Fluid Appearance Yellow/clear, Body Fluid RBC 64, Body Fluid Total Nucleated Cells 55, Body Fluid Polynuclear WBCs (%) 15, Body Fluid Mononuclear WBCs (%) 81, Body Fluid Mesothelial Cells (%) 4, Body Fluid Albumin [Pending] 07/27/18 04:47: Sodium Level 142, Potassium Level 3.2L, Chloride Level 110H, Carbon Dioxide Level 22, Anion Gap 10, Blood Urea Nitrogen 68H, Creatinine 1.4H, Estimat Glomerular Filtration Rate 51.5, Glucose Level 103, Calcium Level 7.3L, Ionized Calcium (Measured) 1.06L Current Medications Medications (Trade) Dose Ordered Sig/Andres Route PRN Reason Start Time Stop Time Status Last Admin Dose Admin Acetaminophen/ Hydrocodone Bitart ([place] 5/325) 1 tab Q4H PRN GT For Pain 07/23/18 18:49 07/30/18 18:48 Atorvastatin Calcium (Lipitor) 20 mg BEDTIME GT 07/23/18 21:00 11/27/18 20:59 07/26/18 21:03 Calcium Gluconate 2 gm/Sodium Chloride 130 ml @ 130 mls/hr ONCE IVPB 07/27/18 10:00 07/27/18 12:00 Chlorhexidine Gluconate (Kelin-Hex 2%) 1 applic DAILY@2000 TOPIC 07/24/18 23:00 08/23/18 22:59 07/26/18 20:59 Dextrose (Dextrose 50%) 25 ml Q30M PRN IV Hypoglycemia 07/23/18 18:33 08/22/18 18:32 Dextrose (Dextrose 50%) 50 ml Q30M PRN IV Hypoglycemia 07/23/18 18:33 08/22/18 18:32 Fluconazole (Diflucan) 100 mg DAILY ORAL 07/26/18 10:44 08/02/18 10:43 07/27/18 08:21 Gabapentin (Neurontin) 300 mg Q8HR GT 07/23/18 22:00 08/22/18 21:59 07/27/18 05:21 Heparin Sodium (Porcine) (Heparin 5000 units/ml) 5,000 units EVERY 12 HOURS SUBQ 07/23/18 21:00 08/22/18 20:59 07/27/18 08:25 Hydroxyzine HCl (Vistaril) 10 mg DAILY GT 07/24/18 09:00 08/23/18 08:59 07/27/18 08:21 Insulin Aspart (NovoLOG) EVERY 6 HOURS SUBQ 07/24/18 00:00 08/23/18 00:00 07/26/18 23:53 Lansoprazole (Prevacid) 30 mg DAILY GT 07/24/18 09:00 08/23/18 08:59 07/27/18 08:20 Levetiracetam (Keppra) 500 mg Q12HR GT 07/24/18 21:00 08/23/18 20:59 07/27/18 08:20 Meropenem 500 mg/ Sodium Chloride 55 ml @ 110 mls/hr Q12H IVPB 07/26/18 12:00 07/31/18 11:59 07/26/18 23:52 Metoclopramide HCl (Reglan) 10 mg EVERY 8 HOURS GT 07/23/18 22:00 08/22/18 21:59 07/27/18 05:21 Potassium Chloride 100 ml @ 100 mls/hr Q1H IVPB 07/27/18 08:30 07/27/18 11:29 07/27/18 08:37 Trimethoprim/ Sulfamethoxazole (Bactrim Single Strength) 1 tab EVERY 12 HOURS ORAL 07/26/18 21:00 08/02/18 20:59 07/27/18 08:21 Vancomycin HCl (Vanco rx to dose) 1 ea DAILY PRN MISC Per rx protocol 07/23/18 18:15 08/22/18 18:14 Vancomycin HCl 1 gm/Dextrose 275 ml @ 183.708 mls/hr Q24H IVPB 07/24/18 16:00 07/29/18 15:59 07/26/18 15:49 Vitamin A/Vitamin D (A & D Oint) 1 applic EVERY 12 HOURS TOPIC 07/23/18 21:00 08/22/18 20:59 07/27/18 08:37 Grant Stone MD Jul 27, 2018 09:00
[2018-07-27] MEDS ORDERED: Calcium Gluconate 10% 2 GM in NS 110 ML IVPB SCH (10:00)
--- NOTE | 2018-07-27 10:59 | General Progress Note ---
Assessment/Plan Assessment/Plan Assessment - Dark GT aspirate, doubt GI Bleed - Anemia - Abnormal LFT, cirrhosis/ascites on Ultrasound - GB mass with elevated tumor markers - patient not candidate for surgery - GNR bacteremia - diarrhea, C Diff (-) - Resp failure / trach - dysphagia / GT - lactic acidosis and leukocytosis on admission - Bacteremia, GNR Recommendations - Paracentesis - negative - Check hepatitis serologies - negative - transfuse PRN - PPI - follow labs - check CEA/19-9 - mildly elevated - Continue feeds Subjective Allergies: Coded Allergies: No Known Allergies (Unverified , 07/23/18) Subjective above noted s/p paracentesis - low WBC cell count mildly elevated CEA and CA 19-9 noted Objective Last 24 Hour Vital Signs Date Time Temp Pulse Resp B/P (MAP) Pulse Ox O2 Delivery O2 Flow Rate FiO2 07/27/18 08:00 35 07/27/18 08:00 Mechanical Ventilator 07/27/18 07:31 97.3 55 23 106/57 (73) 100 07/27/18 07:31 54 07/27/18 07:05 56 23 35 07/27/18 05:29 55 24 35 07/27/18 04:00 40 07/27/18 04:00 98.3 51 22 111/59 (76) 100 07/27/18 04:00 Mechanical Ventilator 07/27/18 04:00 52 07/27/18 02:40 56 20 35 07/27/18 01:10 61 21 35 07/27/18 00:00 98.0 54 24 97/57 (70) 100 07/27/18 00:00 Mechanical Ventilator 07/27/18 00:00 40 07/27/18 00:00 54 07/26/18 23:11 55 20 40 07/26/18 21:14 58 18 60 07/26/18 20:00 98.2 55 21 99/56 (70) 100 07/26/18 20:00 40 07/26/18 20:00 55 07/26/18 20:00 Mechanical Ventilator 07/26/18 18:48 56 26 60 07/26/18 17:27 57 24 60 07/26/18 16:00 40 07/26/18 16:00 Mechanical Ventilator 07/26/18 16:00 58 07/26/18 16:00 97.7 61 22 102/51 (68) 100 07/26/18 15:18 55 22 60 07/26/18 12:30 58 22 60 07/26/18 12:00 Mechanical Ventilator 07/26/18 12:00 40 07/26/18 12:00 97.9 57 22 99/55 (70) 100 07/26/18 11:36 58 07/26/18 11:06 58 22 60 Intake and Output 07/26/18 07/27/18 19:00 07:00 Intake Total 1385.000 ml 730 ml Output Total 600 ml 695 ml Balance 785.000 ml 35 ml IV Total 530.000 ml Tube Feeding 705 ml 650 ml Other 150 ml 80 ml Output Urine Total 500 ml 620 ml Stool Total 100 ml 75 ml Laboratory Tests 07/26/18 16:10: Body Fluid Source Paracentesis, Body Fluid Volume 24 ml, Body Fluid Appearance Yellow/clear, Body Fluid RBC 64, Body Fluid Total Nucleated Cells 55, Body Fluid Polynuclear WBCs (%) 15, Body Fluid Mononuclear WBCs (%) 81, Body Fluid Mesothelial Cells (%) 4, Body Fluid Albumin [Pending] 07/27/18 04:47: Sodium Level 142, Potassium Level 3.2L, Chloride Level 110H, Carbon Dioxide Level 22, Anion Gap 10, Blood Urea Nitrogen 68H, Creatinine 1.4H, Estimat Glomerular Filtration Rate 51.5, Glucose Level 103, Calcium Level 7.3L, Ionized Calcium (Measured) 1.06L Height (Feet): 5 Height (Inches): 5.00 Weight (Pounds): 190 Objective Debilitated WM NCAT supple CTA RRR abd soft ND NT, (+) GT no edema Victorino Seay MD Jul 27, 2018 10:59
--- NOTE | 2018-07-27 11:29 | Infectious Diseases Prog Note ---
Assessment/Plan Assessment/Plan A; Poly microbial sepsis with Klebsiella, proteus & Staph epidermidis UTI Pneumonia Cirrhosis with Ascites VDRF DM Multiple pressure ulcer Acute renal failure P: Continue meropenem, fluconazole, Bactrim & Vancomycin Will f/u cultures Subjective ROS Limited/Unobtainable: Yes Allergies: Coded Allergies: No Known Allergies (Unverified , 07/23/18) Objective Vital Signs Last 24 Hour Vital Signs Date Time Temp Pulse Resp B/P (MAP) Pulse Ox O2 Delivery O2 Flow Rate FiO2 07/27/18 10:56 58 21 35 07/27/18 09:11 61 22 35 07/27/18 08:00 35 07/27/18 08:00 Mechanical Ventilator 07/27/18 07:31 97.3 55 23 106/57 (73) 100 07/27/18 07:31 54 07/27/18 07:05 56 23 35 07/27/18 05:29 55 24 35 07/27/18 04:00 40 07/27/18 04:00 98.3 51 22 111/59 (76) 100 07/27/18 04:00 Mechanical Ventilator 07/27/18 04:00 52 07/27/18 02:40 56 20 35 07/27/18 01:10 61 21 35 07/27/18 00:00 98.0 54 24 97/57 (70) 100 07/27/18 00:00 Mechanical Ventilator 07/27/18 00:00 40 07/27/18 00:00 54 07/26/18 23:11 55 20 40 07/26/18 21:14 58 18 60 07/26/18 20:00 98.2 55 21 99/56 (70) 100 07/26/18 20:00 40 07/26/18 20:00 55 07/26/18 20:00 Mechanical Ventilator 07/26/18 18:48 56 26 60 07/26/18 17:27 57 24 60 07/26/18 16:00 40 07/26/18 16:00 Mechanical Ventilator 07/26/18 16:00 58 07/26/18 16:00 97.7 61 22 102/51 (68) 100 07/26/18 15:18 55 22 60 07/26/18 12:30 58 22 60 07/26/18 12:00 Mechanical Ventilator 07/26/18 12:00 40 07/26/18 12:00 97.9 57 22 99/55 (70) 100 07/26/18 11:36 58 Height (Feet): 5 Height (Inches): 5.00 Weight (Pounds): 190 HEENT: status post trach Respiratory/Chest: lungs clear, other - on ventilator Cardiovascular: normal rate Abdomen: soft, non tender, other - GT & rectal tube Extremities: other - edema of left leg Skin: ulcers Neurologic/Psychiatric: unresponsiveness Microbiology Date/Time Source Procedure Growth Status 07/25/18 03:27 Stool Clostridium difficile Toxin Assay - Final Complete Laboratory Tests Test 07/26/18 16:10 07/27/18 04:47 Body Fluid Source Paracentesis Body Fluid Volume 24 ml mL Body Fluid Appearance Yellow/clear (Clear) Body Fluid RBC 64 /CUMM Body Fluid Total Nucleated Cells 55 /CUMM Body Fluid Polynuclear WBCs (%) 15 % Body Fluid Mononuclear WBCs (%) 81 % Body Fluid Mesothelial Cells (%) 4 % Body Fluid Albumin 0.6 g/dL (.) Sodium Level 142 MMOL/L (136-145) Potassium Level 3.2 MMOL/L (3.5-5.1) L Chloride Level 110 MMOL/L (98-107) H Carbon Dioxide Level 22 MMOL/L (21-32) Anion Gap 10 mmol/L (5-15) Blood Urea Nitrogen 68 mg/dL (7-18) H Creatinine 1.4 MG/DL (0.55-1.30) H Estimat Glomerular Filtration Rate 51.5 mL/min (>60) Glucose Level 103 MG/DL (74-106) Calcium Level 7.3 MG/DL (8.5-10.1) L Ionized Calcium (Measured) 1.06 mmol/L (1.10-1.35) L Current Medications Medications (Trade) Dose Ordered Sig/Andres Route PRN Reason Start Time Stop Time Status Last Admin Dose Admin Acetaminophen/ Hydrocodone Bitart ([place] 5/325) 1 tab Q4H PRN GT For Pain 07/23/18 18:49 07/30/18 18:48 Atorvastatin Calcium (Lipitor) 20 mg BEDTIME GT 07/23/18 21:00 08/22/18 20:59 07/26/18 21:03 Calcium Gluconate 2 gm/Sodium Chloride 130 ml @ 130 mls/hr ONCE IVPB 07/27/18 10:00 07/27/18 12:00 07/27/18 09:47 Chlorhexidine Gluconate (Kelin-Hex 2%) 1 applic DAILY@2000 TOPIC 07/24/18 23:00 08/23/18 22:59 07/26/18 20:59 Dextrose (Dextrose 50%) 25 ml Q30M PRN IV Hypoglycemia 07/23/18 18:33 08/22/18 18:32 Dextrose (Dextrose 50%) 50 ml Q30M PRN IV Hypoglycemia 07/23/18 18:33 08/22/18 18:32 Fluconazole (Diflucan) 100 mg DAILY ORAL 07/26/18 10:44 08/02/18 10:43 07/27/18 08:21 Gabapentin (Neurontin) 300 mg Q8HR GT 07/23/18 22:00 08/22/18 21:59 07/27/18 05:21 Heparin Sodium (Porcine) (Heparin 5000 units/ml) 5,000 units EVERY 12 HOURS SUBQ 07/23/18 21:00 08/22/18 20:59 07/27/18 08:25 Hydroxyzine HCl (Vistaril) 10 mg DAILY GT 07/24/18 09:00 08/23/18 08:59 07/27/18 08:21 Insulin Aspart (NovoLOG) EVERY 6 HOURS SUBQ 07/24/18 00:00 08/23/18 00:00 07/26/18 23:53 Lansoprazole (Prevacid) 30 mg DAILY GT 07/24/18 09:00 08/23/18 08:59 07/27/18 08:20 Levetiracetam (Keppra) 500 mg Q12HR GT 07/24/18 21:00 08/23/18 20:59 07/27/18 08:20 Meropenem 500 mg/ Sodium Chloride 55 ml @ 110 mls/hr Q12H IVPB 07/26/18 12:00 07/31/18 11:59 07/26/18 23:52 Metoclopramide HCl (Reglan) 10 mg EVERY 8 HOURS GT 07/23/18 22:00 08/22/18 21:59 07/27/18 05:21 Potassium Chloride 100 ml @ 100 mls/hr Q1H IVPB 07/27/18 08:30 07/27/18 11:29 11/1/18 10:40 Trimethoprim/ Sulfamethoxazole (Bactrim Single Strength) 1 tab EVERY 12 HOURS ORAL 07/26/18 21:00 08/02/18 20:59 07/27/18 08:21 Vancomycin HCl (Vanco rx to dose) 1 ea DAILY PRN MISC Per rx protocol 07/23/18 18:15 08/22/18 18:14 Vancomycin HCl 1 gm/Dextrose 275 ml @ 183.708 mls/hr Q24H IVPB 07/24/18 16:00 07/29/18 15:59 07/26/18 15:49 Vitamin A/Vitamin D (A & D Oint) 1 applic EVERY 12 HOURS TOPIC 07/23/18 21:00 08/22/18 20:59 07/27/18 08:37 Fabio Barkley MD Jul 27, 2018 11:29
[2018-07-27 11:30] VITALS: BP 123/66
[2018-07-27] MEDS: Meropenem 500 MG in NS 55 ML IVPB SCH ×2 (11:47→23:27)
[2018-07-27 16:00] VITALS: BP 130/67
[2018-07-27] MEDS: Vancomycin 1gm/D5W 275ml IVPB SCH ×2 (16:14)
[2018-07-27 20:00] VITALS: BP 109/58
[2018-07-27] MEDS: Dyna-Hex 2% Top Sol 2oz TOPIC SCH (21:23)
[2018-07-27] MEDS: Atorvastatin 20mg tab GT SCH (21:24)
[2018-07-28] VITALS (7 sets, daily range): BP systolic 94–138; BP diastolic 53–76
[2018-07-28] MEDS: Metoclopramide 10mg/10ml Liq GT SCH ×3 (05:39→21:47)
[2018-07-28 05:40] LABS: ANION GAP 6 mmol/L (5-15); BLOOD UREA NITROGEN 63 mg/dL (7-18); CALCIUM 7.6 MG/DL (8.5-10.1); CARBON DIOXIDE 23 MMOL/L (21-32); CHLORIDE 111 MMOL/L (98-107); CREATININE 1.3 MG/DL (0.55-1.30); POTASSIUM 4.1 MMOL/L (3.5-5.1); SODIUM 140 MMOL/L (136-145)
[2018-07-28] MEDS: NovoLOG Insulin Flexpen SUBQ SCH ×3 (05:40→17:32)
--- NOTE | 2018-07-28 08:14 | Nephrology Progress Note ---
Assessment/Plan Assessment/Plan A/P 1. CKD 3B. Cr down to 1.3 and BUN 63 - prn lasix 2. Anasarca. Secondary to decreased oncotic pressure from hypoalbuminemic state - high protein feeds 3. Sepsis- Poly microbial sepsis with Klebsiella, proteus & Staph epidermidis UTI, Pneumonia 4. Seizure disorder- Keppra. 5. Chronic respiratory failure- mechanically ventilated through tracheostomy. 6. Hypokalemia- replace prn Subjective Date patient seen: Jul 28, 2018 Time patient seen: 08:12 ROS Limited/Unobtainable: Yes Allergies: Coded Allergies: No Known Allergies (Unverified , 07/23/18) Subjective Patient chronically trached Objective Last 24 Hour Vital Signs Date Time Temp Pulse Resp B/P (MAP) Pulse Ox O2 Delivery O2 Flow Rate FiO2 07/28/18 07:24 97.3 53 18 103/63 (76) 100 07/28/18 06:48 53 18 35 07/28/18 05:07 51 18 35 07/28/18 04:00 Mechanical Ventilator 07/28/18 04:00 56 07/28/18 04:00 97.7 52 17 108/61 (77) 100 07/28/18 04:00 35 07/28/18 02:58 52 17 35 07/28/18 01:05 60 17 35 07/28/18 00:00 Mechanical Ventilator 07/28/18 00:00 52 07/28/18 00:00 97.9 54 20 94/53 (67) 100 07/27/18 23:06 53 18 35 07/27/18 21:01 54 19 35 07/27/18 20:00 97.9 53 18 109/58 (75) 100 07/27/18 20:00 35 07/27/18 20:00 70 07/27/18 20:00 Mechanical Ventilator 07/27/18 19:06 52 18 35 07/27/18 17:00 52 22 35 07/27/18 16:00 35 07/27/18 16:00 97.5 57 21 130/67 (88) 100 07/27/18 16:00 Mechanical Ventilator 07/27/18 15:48 56 07/27/18 15:20 57 20 35 07/27/18 13:30 53 22 35 07/27/18 12:00 35 07/27/18 12:00 Mechanical Ventilator 07/27/18 11:30 97.0 54 22 123/66 (85) 100 07/27/18 11:28 54 07/27/18 10:56 58 21 35 07/27/18 09:11 61 22 35 Intake and Output 07/27/18 07/28/18 18:59 06:59 Intake Total 1235.000 ml 590 ml Output Total 700 ml 550 ml Balance 535.000 ml 40 ml Free Water 90 ml IV Total 815.000 ml Tube Feeding 330 ml 490 ml Other 100 ml Output Urine Total 650 ml 550 ml Stool Total 50 ml Laboratory Tests 07/28/18 04:00: Sodium Level 140, Potassium Level 4.1, Chloride Level 111H, Carbon Dioxide Level 23, Anion Gap 6, Blood Urea Nitrogen 63H, Creatinine 1.3, Estimat Glomerular Filtration Rate 56.1, Glucose Level 106, Calcium Level 7.6L Height (Feet): 5 Height (Inches): 5.00 Weight (Pounds): 190 General Appearance: no apparent distress EENT: normal ENT inspection Neck: normal alignment, supple Cardiovascular: normal rate, regular rhythm Respiratory/Chest: lungs clear, normal breath sounds Abdomen: non tender, soft Edema: no edema noted Arm (L), no edema noted Arm (R), no edema noted Leg (L), no edema noted Leg (R), no edema noted Pedal (L), no edema noted Pedal (R), no edema noted Generalized Sumit Merchant MD Jul 28, 2018 08:14
[2018-07-28] MEDS: Bactrim SS Tab ORAL SCH (08:26)
[2018-07-28] MEDS: levETIRAcetam 500mg/5ml Liquid GT SCH ×2 (08:26→20:32)
[2018-07-28] MEDS: Fluconazole 100mg tab ORAL SCH (08:27)
[2018-07-28] MEDS: Vitamin A&D Oint 2oz Tube TOPIC SCH ×2 (08:27→20:37)
[2018-07-28] MEDS: Heparin 5000 units/ml inj SUBQ SCH ×2 (08:29→20:34)
[2018-07-28] MEDS ORDERED: Tubing IV Secondary IV ONE (10:27)
[2018-07-28] MEDS ORDERED: D5 1/2NS 1000ml IV ONE (10:27)
[2018-07-28] MEDS ORDERED: NS 275ml ONE (10:27)
--- NOTE | 2018-07-28 10:58 | Infectious Diseases Prog Note ---
"Assessment/Plan Assessment/Plan antibiotics : vancomycin Iv, meropenem, fluconazole, bactrim A 1. klebsiella | staph epi | proteus sepsis 2. klebsiella | e.coli | pseudomonas pneumonia 3. fungal UTI 4. respiratory failure 5. renal failure 6. seizures 7. diabetes mellitus P 1. continue iv vancomycin 4 more days 2. continue meropenem, bactrim 7 more days 3. continue fluconazole 4 more days 4. will follow up cultures Subjective ROS Limited/Unobtainable: Yes Allergies: Coded Allergies: No Known Allergies (Unverified , 07/23/18) Objective Vital Signs Last 24 Hour Vital Signs Date Time Temp Pulse Resp B/P (MAP) Pulse Ox O2 Delivery O2 Flow Rate FiO2 07/28/18 10:33 50 20 35 07/28/18 08:58 51 18 35 07/28/18 08:00 Mechanical Ventilator 07/28/18 08:00 35 07/28/18 07:50 52 07/28/18 07:24 97.3 53 18 103/63 (76) 100 07/28/18 06:48 53 18 35 07/28/18 05:07 51 18 35 07/28/18 04:00 Mechanical Ventilator 07/28/18 04:00 56 07/28/18 04:00 97.7 52 17 108/61 (77) 100 07/28/18 04:00 35 07/28/18 02:58 52 17 35 07/28/18 01:05 60 17 35 07/28/18 00:00 Mechanical Ventilator 07/28/18 00:00 52 07/28/18 00:00 97.9 54 20 94/53 (67) 100 07/27/18 23:06 53 18 35 07/27/18 21:01 54 19 35 07/27/18 20:00 97.9 53 18 109/58 (75) 100 07/27/18 20:00 35 07/27/18 20:00 70 07/27/18 20:00 Mechanical Ventilator 07/27/18 19:06 52 18 35 07/27/18 17:00 52 22 35 07/27/18 16:00 35 07/27/18 16:00 97.5 57 21 130/67 (88) 100 07/27/18 16:00 Mechanical Ventilator 07/27/18 15:48 56 07/27/18 15:20 57 20 35 07/27/18 13:30 53 22 35 07/27/18 12:00 35 07/27/18 12:00 Mechanical Ventilator 07/27/18 11:30 97.0 54 22 123/66 (85) 100 07/27/18 11:28 54 07/27/18 10:56 58 21 35 Height (Feet): 5 Height (Inches): 5.00 Weight (Pounds): 190 HEENT: status post trach Respiratory/Chest: lungs clear Cardiovascular: normal rate, regular rhythm, no gallop/murmur Abdomen: soft, non tender, other - GT Extremities: other - + edema Microbiology Date/Time Source Procedure Growth Status 07/26/18 16:10 Peritoneal Fluid Gram Stain - Final Resulted 07/26/18 16:10 Peritoneal Fluid Body Fluid Culture - Preliminary NO GROWTH AFTER 24 HOURS Resulted 07/26/18 21:40 Chest Catheter Tip Culture - Preliminary NO GROWTH AFTER 24 HOURS Resulted Laboratory Tests Test 07/28/18 04:00 Sodium Level 140 MMOL/L (136-145) Potassium Level 4.1 MMOL/L (3.5-5.1) Chloride Level 111 MMOL/L (98-107) H Carbon Dioxide Level 23 MMOL/L (21-32) Anion Gap 6 mmol/L (5-15) Blood Urea Nitrogen 63 mg/dL (7-18) H Creatinine 1.3 MG/DL (0.55-1.30) Estimat Glomerular Filtration Rate 56.1 mL/min (>60) Glucose Level 106 MG/DL (74-106) Calcium Level 7.6 MG/DL (8.5-10.1) L Current Medications Medications (Trade) Dose Ordered Sig/Andres Route PRN Reason Start Time Stop Time Status Last Admin Dose Admin Acetaminophen/ Hydrocodone Bitart ([place] 5/325) 1 tab Q4H PRN GT For Pain 07/23/18 18:49 07/30/18 18:48 Atorvastatin Calcium (Lipitor) 20 mg BEDTIME GT 07/23/18 21:00 08/22/18 20:59 07/27/18 21:24 Chlorhexidine Gluconate (Kelin-Hex 2%) 1 applic DAILY@2000 TOPIC 07/24/18 23:00 08/23/18 22:59 07/27/18 21:23 Dextrose (Dextrose 50%) 25 ml Q30M PRN IV Hypoglycemia 07/23/18 18:33 08/22/18 18:32 Dextrose (Dextrose 50%) 50 ml Q30M PRN IV Hypoglycemia 07/23/18 18:33 08/22/18 18:32 Fluconazole (Diflucan) 100 mg DAILY ORAL 07/26/18 10:44 08/02/18 10:43 07/28/18 08:27 Gabapentin (Neurontin) 300 mg Q8HR GT 07/23/18 22:00 08/22/18 21:59 07/28/18 05:39 Heparin Sodium (Porcine) (Heparin 5000 units/ml) 5,000 units EVERY 12 HOURS SUBQ 07/23/18 21:00 08/22/18 20:59 07/28/18 08:29 Hydroxyzine HCl (Vistaril) 10 mg DAILY GT 07/24/18 09:00 08/23/18 08:59 07/28/18 08:27 Insulin Aspart (NovoLOG) EVERY 6 HOURS SUBQ 07/24/18 00:00 08/23/18 00:00 07/28/18 05:40 Lansoprazole (Prevacid) 30 mg DAILY GT 07/24/18 09:00 08/23/18 08:59 07/28/18 08:27 Levetiracetam (Keppra) 500 mg Q12HR GT 07/24/18 21:00 08/23/18 20:59 07/28/18 08:26 Meropenem 500 mg/ Sodium Chloride 55 ml @ 110 mls/hr Q12H IVPB 07/26/18 12:00 07/31/18 11:59 07/27/18 23:27 Metoclopramide HCl (Reglan) 10 mg EVERY 8 HOURS GT 07/23/18 22:00 08/22/18 21:59 07/28/18 05:39 Trimethoprim/ Sulfamethoxazole (Bactrim Single Strength) 1 tab EVERY 12 HOURS ORAL 07/26/18 21:00 08/02/18 20:59 07/28/18 08:26 Vancomycin HCl (Vanco rx to dose) 1 ea DAILY PRN MISC Per rx protocol 07/23/18 18:15 08/22/18 18:14 Vancomycin HCl 1 gm/Dextrose 275 ml @ 183.708 mls/hr Q24H IVPB 07/24/18 16:00 11/7/18 15:59 07/27/18 16:14 Vitamin A/Vitamin D (A & D Oint) 1 applic EVERY 12 HOURS TOPIC 07/23/18 21:00 08/22/18 20:59 07/28/18 08:27 Franny Cr MD Jul 28, 2018 10:58"
[2018-07-28] MEDS: Meropenem 500 MG in NS 55 ML IVPB SCH (11:25)
--- NOTE | 2018-07-28 14:33 | Pulmonology Progress Note ---
Assessment/Plan Assessment/Plan Assessment/Plan IMPRESSION: 1. Possible pneumonia/sepsis 2. Acute on chronic renal failure. 3. Anemia. 4. Possible gastrointestinal bleed. 5. Leukocytosis. 6. Mild coagulopathy. 7. Prior history of G-tube intolerance. 8. Suprapubic catheter. 9. Respiratory failure. 10. Tracheostomy. Stable overnight PLAN antibiotics K replacement vent feeds monitor edema bolus feeds stabilize and dc to snf once improved impression, plan, and exam edited and reviewed in detail care discussed with RN Subjective ROS Limited/Unobtainable: Yes Allergies: Coded Allergies: No Known Allergies (Unverified , 07/23/18) Subjective on vent reviewed results Objective Vital Signs noted Date Time Temp Pulse Resp B/P (MAP) Pulse Ox O2 Delivery O2 Flow Rate FiO2 07/25/18 12:00 Mechanical Ventilator 07/25/18 12:00 50 07/25/18 11:21 66 20 50 07/25/18 09:12 65 19 50 07/25/18 08:00 50 07/25/18 08:00 98.2 66 15 87/46 (60) 100 07/25/18 08:00 67 07/25/18 08:00 Mechanical Ventilator 07/25/18 07:49 65 27 50 07/25/18 05:52 100/62 07/25/18 05:21 65 21 50 07/25/18 04:00 68 07/25/18 04:00 50 07/25/18 04:00 97.8 77 16 100/62 (75) 99 07/25/18 04:00 Mechanical Ventilator 07/25/18 03:29 69 25 50 07/25/18 01:09 73 25 50 07/25/18 00:00 97.7 65 16 111/62 (78) 99 07/25/18 00:00 Mechanical Ventilator 07/24/18 23:14 75 29 50 07/24/18 22:00 93/52 07/24/18 20:49 71 28 50 07/24/18 20:00 97.7 73 26 93/52 (66) 99 07/24/18 20:00 77 07/24/18 20:00 50 07/24/18 20:00 Mechanical Ventilator 07/24/18 19:27 67 28 50 07/24/18 16:50 81 30 50 07/24/18 16:00 69 07/24/18 16:00 97.5 73 32 92/52 (65) 93 07/24/18 16:00 50 07/24/18 16:00 Mechanical Ventilator 07/24/18 14:47 75 23 50 07/24/18 14:00 102/56 07/24/18 12:40 79 26 50 Intake and Output 07/24/18 07/25/18 19:00 07:00 Intake Total 512.500 ml 1197.5 ml Output Total 750 ml 700 ml Balance -237.500 ml 497.5 ml Intake Oral 0 ml 0 ml IV Total 412.500 ml 137.5 ml Blood Product 1000 ml Other 100 ml 60 ml Output Urine Total 600 ml 600 ml Stool Total 100 ml 100 ml Gastric Drainage Total 50 ml Laboratory Tests 07/25/18 02:54: Random Gentamicin Level 4.0 07/25/18 07:55: White Blood Count 11.0H, Red Blood Count 3.58L, Hemoglobin 8.9L, Hematocrit 27.5L, Mean Corpuscular Volume 77L, Mean Corpuscular Hemoglobin 24.8L, Mean Corpuscular Hemoglobin Concent 32.3, Red Cell Distribution Width 17.7H, Platelet Count 198, Mean Platelet Volume 5.7L, Neutrophils (%) (Auto) 71.9, Lymphocytes (%) (Auto) 20.9, Monocytes (%) (Auto) 6.3, Eosinophils (%) (Auto) 0.3, Basophils (%) (Auto) 0.7, Prothrombin Time 13.3H, Prothromb Time International Ratio 1.3H, Sodium Level 141, Potassium Level 3.1L, Chloride Level 108H, Carbon Dioxide Level 22, Anion Gap 11, Blood Urea Nitrogen 77H, Creatinine 1.4H, Estimat Glomerular Filtration Rate 51.5, Glucose Level 76, Calcium Level 7.6L, Total Bilirubin 2.6H, Direct Bilirubin 2.1H, Aspartate Amino Transf (AST/SGOT) 38H, Alanine Aminotransferase (ALT/SGPT) 35, Alkaline Phosphatase 477H, Total Protein 5.7L, Albumin 1.0L, Globulin 4.7, Albumin/ Globulin Ratio 0.2L, Hepatitis A IgM Antibody [Pending], Hepatitis B Surface Antigen [Pending], Hepatitis B Core IgM Antibody [Pending], Hepatitis C Antibody [Pending] Height (Feet): 5 Height (Inches): 5.00 Weight (Pounds): 132 Objective WDWN trach moderate breath sounds bilaterally without rhonchi or wheeze [id number] without MRG NABS nontender no HSM no CC diffuse edema GT poorly responsive Subjective ROS Limited/Unobtainable: No Allergies: Coded Allergies: No Known Allergies (Unverified , 07/23/18) Objective Last 24 Hour Vital Signs Date Time Temp Pulse Resp B/P (MAP) Pulse Ox O2 Delivery O2 Flow Rate FiO2 07/28/18 12:36 52 18 35 07/28/18 12:00 Mechanical Ventilator 07/28/18 12:00 97.3 60 18 122/70 (87) 100 07/28/18 12:00 35 07/28/18 12:00 54 07/28/18 10:33 50 20 35 07/28/18 08:58 51 18 35 07/28/18 08:00 Mechanical Ventilator 07/28/18 08:00 35 07/28/18 07:50 52 07/28/18 07:24 97.3 53 18 103/63 (76) 100 07/28/18 06:48 53 18 35 07/28/18 05:07 51 18 35 07/28/18 04:00 Mechanical Ventilator 07/28/18 04:00 56 07/28/18 04:00 97.7 52 17 108/61 (77) 100 07/28/18 04:00 35 07/28/18 02:58 52 17 35 07/28/18 01:05 60 17 35 07/28/18 00:00 Mechanical Ventilator 07/28/18 00:00 52 07/28/18 00:00 97.9 54 20 94/53 (67) 100 07/27/18 23:06 53 18 35 07/27/18 21:01 54 19 35 07/27/18 20:00 97.9 53 18 109/58 (75) 100 07/27/18 20:00 35 07/27/18 20:00 70 07/27/18 20:00 Mechanical Ventilator 07/27/18 19:06 52 18 35 07/27/18 17:00 52 22 35 07/27/18 16:00 35 07/27/18 16:00 97.5 57 21 130/67 (88) 100 07/27/18 16:00 Mechanical Ventilator 07/27/18 15:48 56 07/27/18 15:20 57 20 35 Intake and Output 07/27/18 07/28/18 19:00 07:00 Intake Total 1210.000 ml 600 ml Output Total 700 ml 550 ml Balance 510.000 ml 50 ml Free Water 90 ml IV Total 815.000 ml Tube Feeding 305 ml 500 ml Other 100 ml Output Urine Total 650 ml 550 ml Stool Total 50 ml Microbiology Date/Time Source Procedure Growth Status 07/26/18 16:10 Peritoneal Fluid Gram Stain - Final Resulted 07/26/18 16:10 Peritoneal Fluid Body Fluid Culture - Preliminary NO GROWTH AFTER 24 HOURS Resulted 07/26/18 21:40 Chest Catheter Tip Culture - Preliminary NO GROWTH AFTER 24 HOURS Resulted Laboratory Tests 07/28/18 04:00: Sodium Level 140, Potassium Level 4.1, Chloride Level 111H, Carbon Dioxide Level 23, Anion Gap 6, Blood Urea Nitrogen 63H, Creatinine 1.3, Estimat Glomerular Filtration Rate 56.1, Glucose Level 106, Calcium Level 7.6L Current Medications Medications (Trade) Dose Ordered Sig/Andres Route PRN Reason Start Time Stop Time Status Last Admin Dose Admin Acetaminophen/ Hydrocodone Bitart ([place] 5/325) 1 tab Q4H PRN GT For Pain 07/23/18 18:49 07/30/18 18:48 Atorvastatin Calcium (Lipitor) 20 mg BEDTIME GT 07/23/18 21:00 08/22/18 20:59 07/27/18 21:24 Chlorhexidine Gluconate (Kelin-Hex 2%) 1 applic DAILY@1999 TOPIC 07/24/18 23:00 08/23/18 22:59 07/27/18 21:23 Dextrose (Dextrose 50%) 25 ml Q30M PRN IV Hypoglycemia 07/23/18 18:33 08/22/18 18:32 Dextrose (Dextrose 50%) 50 ml Q30M PRN IV Hypoglycemia 07/23/18 18:33 08/22/18 18:32 Fluconazole (Diflucan) 200 mg DAILY ORAL 07/29/18 09:00 08/05/18 08:59 Gabapentin (Neurontin) 300 mg Q8HR GT 07/23/18 22:00 08/22/18 21:59 07/28/18 13:43 Heparin Sodium (Porcine) (Heparin 5000 units/ml) 5,000 units EVERY 12 HOURS SUBQ 07/23/18 21:00 08/22/18 20:59 07/28/18 08:29 Hydroxyzine HCl (Vistaril) 10 mg DAILY GT 07/24/18 09:00 08/23/18 08:59 07/28/18 08:27 Insulin Aspart (NovoLOG) EVERY 6 HOURS SUBQ 07/24/18 00:00 08/23/18 00:00 07/28/18 11:23 Lansoprazole (Prevacid) 30 mg DAILY GT 07/24/18 09:00 08/23/18 08:59 07/28/18 08:27 Levetiracetam (Keppra) 500 mg Q12HR GT 07/24/18 21:00 08/23/18 20:59 07/28/18 08:26 Meropenem 1 gm/ Sodium Chloride 110 ml @ 220 mls/hr Q8HR IVPB 07/28/18 22:00 08/02/18 21:59 Meropenem 500 mg/ Sodium Chloride 55 ml @ 110 mls/hr Q12H IVPB 07/26/18 12:00 07/28/18 21:59 07/28/18 11:25 Metoclopramide HCl (Reglan) 10 mg EVERY 8 HOURS GT 07/23/18 22:00 08/22/18 21:59 07/28/18 13:42 Trimethoprim/ Sulfamethoxazole (Bactrim-DS) 1 tab Q12HR ORAL 07/28/18 21:00 08/04/18 20:59 Vancomycin HCl (Vanco rx to dose) 1 ea DAILY PRN MISC Per rx protocol 07/23/18 18:15 08/22/18 18:14 Vancomycin HCl 1 gm/Dextrose 275 ml @ 183.708 mls/hr Q24H IVPB 07/24/18 16:00 08/02/18 15:59 07/27/18 16:14 Vitamin A/Vitamin D (A & D Oint) 1 applic EVERY 12 HOURS TOPIC 07/23/18 21:00 08/22/18 20:59 07/28/18 08:27 Jese Mark MD Jul 28, 2018 14:33
[2018-07-28] MEDS: Vancomycin 1gm/D5W 275ml IVPB SCH ×2 (15:08)
--- NOTE | 2018-07-28 15:44 | Cardiology Report ---
APPROVED REPORT EXAM: Two-dimensional and M-mode echocardiogram with Doppler and color Doppler. INDICATION ENDOOCARTITIS M-Mode DIMENSIONS IVSd1.7 (0.7-1.1cm)Left Atrium (MM)4.3 (1.6-4.0cm) LVDd6.0 (3.5-5.6cm)Aortic Root4.1 (2.0-3.7cm) PWd1.3 (0.7-1.1cm)Aortic Cusp Exc.2.4 (1.5-2.0cm) IVSs1.6 cm LVDs4.1 (2.5-4.0cm) PWs1.8 cm TDI E/Lateral E'0.0E/Medial E'0.0 Normal left ventricular chamber size, systolic function and wall motion. Left ventricular ejection fraction estimated to be 55-60 %. Mild left ventricular hypertrophy. Trivial pericardial effusion. Pleural effusion present . Mild left atrial enlargement . Right cardiac chamber sizes are within normal limits. Focal aortic valve sclerosis with adequate cusp excursion. Thickened mitral valve leaflets with normal excursion. Mitral annulus and aortic root calcification. Pulmonic valve not well visualized. Normal tricuspid valve structure. IVC at size 2.1 without physiologic collapse, suggestive to increase RA pressure . A color flow and spectral Doppler study was performed and revealed: No aortic insufficiency . Mild mitral regurgitation. Mitral diastolic velocities suggest reduced left ventricular relaxation c/w mild LV diastolic dysfunction (Grade I ). Moderate tricuspid regurgitation. Tricuspid systolic velocities suggests peak right ventricular systolic pressure of 57mmHg,consistent with moderate pulmonary hypertension.
[2018-07-28] MEDS: Atorvastatin 20mg tab GT SCH (20:32)
[2018-07-28] MEDS: Bactrim-DS 1 tab ORAL SCH (20:32)
[2018-07-28] MEDS: Meropenem 1 GM in NS 110 ML IVPB SCH (21:47)
--- NOTE | 2018-07-28 21:56 | General Progress Note ---
Assessment/Plan Assessment/Plan Assessment - Dark GT aspirate, doubt GI Bleed - Anemia - Abnormal LFT, cirrhosis/ascites on Ultrasound - GB mass with elevated tumor markers - patient not candidate for surgery - GNR bacteremia - diarrhea, C Diff (-) - Resp failure / trach - dysphagia / GT - lactic acidosis and leukocytosis on admission - Bacteremia, GNR Recommendations - Paracentesis - negative - Check hepatitis serologies - negative - transfuse PRN - PPI - follow labs - check CEA/19-9 - mildly elevated - Continue feeds Subjective Allergies: Coded Allergies: No Known Allergies (Unverified , 07/23/18) Subjective above noted d/w RN tolerating TF scant loose BM (+) rectal tube Objective Last 24 Hour Vital Signs Date Time Temp Pulse Resp B/P (MAP) Pulse Ox O2 Delivery O2 Flow Rate FiO2 07/28/18 21:10 109 27 35 07/28/18 20:00 76 07/28/18 20:00 35 07/28/18 20:00 100.0 76 18 138/76 (96) 100 07/28/18 18:59 72 29 35 07/28/18 17:13 71 19 35 07/28/18 16:00 35 07/28/18 16:00 Mechanical Ventilator 07/28/18 16:00 97.3 53 18 135/71 (92) 100 07/28/18 15:36 52 07/28/18 14:37 55 19 35 07/28/18 12:36 52 18 35 07/28/18 12:00 Mechanical Ventilator 07/28/18 12:00 97.3 60 18 122/70 (87) 100 07/28/18 12:00 35 07/28/18 12:00 54 07/28/18 10:33 50 20 35 07/28/18 08:58 51 18 35 07/28/18 08:00 Mechanical Ventilator 07/28/18 08:00 35 07/28/18 07:50 52 07/28/18 07:24 97.3 53 18 103/63 (76) 100 07/28/18 06:48 53 18 35 07/28/18 05:07 51 18 35 07/28/18 04:00 Mechanical Ventilator 07/28/18 04:00 56 07/28/18 04:00 97.7 52 17 108/61 (77) 100 07/28/18 04:00 35 07/28/18 02:58 52 17 35 07/28/18 01:05 60 17 35 07/28/18 00:00 Mechanical Ventilator 07/28/18 00:00 52 07/28/18 00:00 97.9 54 20 94/53 (67) 100 07/27/18 23:06 53 18 35 Intake and Output 07/27/18 07/28/18 19:00 07:00 Intake Total 1210.000 ml 600 ml Output Total 700 ml 550 ml Balance 510.000 ml 50 ml Free Water 90 ml IV Total 815.000 ml Tube Feeding 305 ml 500 ml Other 100 ml Output Urine Total 650 ml 550 ml Stool Total 50 ml Laboratory Tests 07/28/18 04:00: Sodium Level 140, Potassium Level 4.1, Chloride Level 111H, Carbon Dioxide Level 23, Anion Gap 6, Blood Urea Nitrogen 63H, Creatinine 1.3, Estimat Glomerular Filtration Rate 56.1, Glucose Level 106, Calcium Level 7.6L Height (Feet): 5 Height (Inches): 5.00 Weight (Pounds): 190 Objective Debilitated WM NCAT supple CTA RRR abd soft ND NT, (+) GT no edema Victorino Seay MD Jul 28, 2018 21:56
[2018-07-28] MEDS ORDERED: Acetaminophen 500mg (ES) tab ORAL PRN (23:15)
[2018-07-29] VITALS (7 sets, daily range): BP systolic 87–101; BP diastolic 47–60
[2018-07-29] MEDS: NovoLOG Insulin Flexpen SUBQ SCH ×4 (00:03→17:06)
[2018-07-29 05:31] LABS: ANION GAP 8 mmol/L (5-15); BLOOD UREA NITROGEN 61 mg/dL (7-18); CALCIUM 7.5 MG/DL (8.5-10.1); CARBON DIOXIDE 23 MMOL/L (21-32); CHLORIDE 110 MMOL/L (98-107); CREATININE 1.4 MG/DL (0.55-1.30); POTASSIUM 4.3 MMOL/L (3.5-5.1); SODIUM 141 MMOL/L (136-145)
[2018-07-29] MEDS: Metoclopramide 10mg/10ml Liq GT SCH ×3 (05:50→21:34)
[2018-07-29] MEDS: Meropenem 1 GM in NS 110 ML IVPB SCH ×3 (05:51→21:34)
--- NOTE | 2018-07-29 06:00 | Nephrology Progress Note ---
Assessment/Plan Assessment/Plan A/P 1. CKD 3B. BUN 61. Cr stable 1.3-1.4 2. Anasarca. Secondary to decreased oncotic pressure from hypoalbuminemic state - high protein feeds to continue 3. Sepsis- Poly microbial sepsis with Klebsiella, proteus & Staph epidermidis UTI, Pneumonia - Abx per ID 4. Seizure disorder- Keppra. 5. Chronic respiratory failure- mechanically ventilated through tracheostomy. 6. Hypocalcemia- replace 7. Hypotension- fluid bolus challenge Subjective Date patient seen: Jul 29, 2018 Time patient seen: 05:58 ROS Limited/Unobtainable: Yes Allergies: Coded Allergies: No Known Allergies (Unverified , 07/23/18) Subjective Patient chronically trached. Hypotensive Objective Last 24 Hour Vital Signs Date Time Temp Pulse Resp B/P (MAP) Pulse Ox O2 Delivery O2 Flow Rate FiO2 07/29/18 05:30 61 20 35 07/29/18 04:00 35 07/29/18 04:00 97.7 80 20 87/47 (60) 100 07/29/18 04:00 61 07/29/18 04:00 Mechanical Ventilator 07/29/18 03:05 63 19 35 07/29/18 01:12 72 21 35 07/29/18 00:00 35 07/29/18 00:00 Mechanical Ventilator 07/29/18 00:00 80 07/29/18 00:00 102.0 80 24 89/50 (63) 98 07/28/18 23:15 92 29 35 07/28/18 23:00 102.0 89 18 125/76 (92) 100 07/28/18 21:10 109 27 35 07/28/18 20:00 76 07/28/18 20:00 Mechanical Ventilator 07/28/18 20:00 35 07/28/18 20:00 100.0 76 18 138/76 (96) 100 07/28/18 18:59 72 29 35 07/28/18 17:13 71 19 35 07/28/18 16:00 35 07/28/18 16:00 Mechanical Ventilator 07/28/18 16:00 97.3 53 18 135/71 (92) 100 07/28/18 15:36 52 07/28/18 14:37 55 19 35 07/28/18 12:36 52 18 35 07/28/18 12:00 Mechanical Ventilator 07/28/18 12:00 97.3 60 18 122/70 (87) 100 07/28/18 12:00 35 07/28/18 12:00 54 07/28/18 10:33 50 20 35 07/28/18 08:58 51 18 35 07/28/18 08:00 Mechanical Ventilator 07/28/18 08:00 35 07/28/18 07:50 52 07/28/18 07:24 97.3 53 18 103/63 (76) 100 07/28/18 06:48 53 18 35 Intake and Output 07/28/18 07/29/18 18:59 06:59 Intake Total 1193.426 ml 435 ml Output Total 700 ml Balance 493.426 ml 435 ml Free Water 120 ml IV Total 373.426 ml 110 ml Tube Feeding 700 ml 325 ml Output Urine Total 600 ml Stool Total 100 ml Laboratory Tests 07/29/18 03:35: Sodium Level 141, Potassium Level 4.3, Chloride Level 110H, Carbon Dioxide Level 23, Anion Gap 8, Blood Urea Nitrogen 61H, Creatinine 1.4H, Estimat Glomerular Filtration Rate 51.5, Glucose Level 123H, Calcium Level 7.5L, Ionized Calcium (Measured) 1.05L Height (Feet): 5 Height (Inches): 5.00 Weight (Pounds): 190 General Appearance: other - trached EENT: normal ENT inspection Neck: normal alignment, supple Cardiovascular: normal rate, regular rhythm Respiratory/Chest: rhonchi - bilaterally Abdomen: non tender, soft Edema: 1+ Arm (L), 1+ Arm (R), 1+ Leg (L), 1+ Leg (R), 1+ Pedal (L), 1+ Pedal ( R), 1+ Generalized Sumit Merchant MD Jul 29, 2018 06:00
[2018-07-29] MEDS ORDERED: Calcium Gluconate 10% 2 GM in NS 110 ML IVPB ONE (07:00)
[2018-07-29] MEDS: Fluconazole 100mg tab ORAL SCH (08:38)
[2018-07-29] MEDS: levETIRAcetam 500mg/5ml Liquid GT SCH ×2 (08:38→20:33)
[2018-07-29] MEDS: Vitamin A&D Oint 2oz Tube TOPIC SCH ×2 (08:38→20:35)
[2018-07-29] MEDS: Heparin 5000 units/ml inj SUBQ SCH ×2 (08:42→20:34)
[2018-07-29] MEDS: Bactrim-DS 1 tab ORAL SCH ×2 (08:53→20:32)
--- NOTE | 2018-07-29 10:40 | Pulmonology Progress Note ---
Assessment/Plan Assessment/Plan IMPRESSION: 1. Possible sepsis. 2. Acute on chronic renal failure. 3. Anemia. 4. Possible gastrointestinal bleed. 5. Leukocytosis. 6. Mild coagulopathy. 7. Prior history of G-tube intolerance. 8. Suprapubic catheter. 9. Respiratory failure. 10. Tracheostomy 11. ascites, s/p tap 12. MDR PLAN ID and gi noted iv antibiotics monitor fluid shifts check labs stabilize vent feeds dc to snf once stable impression, plan, and exam edited and reviewed in detail care discussed with RN Subjective ROS Limited/Unobtainable: Yes Allergies: Coded Allergies: No Known Allergies (Unverified , 07/23/18) Subjective CARE NOTED fully supported Objective Last 24 Hour Vital Signs Date Time Temp Pulse Resp B/P (MAP) Pulse Ox O2 Delivery O2 Flow Rate FiO2 07/29/18 09:32 60 21 35 07/29/18 08:00 35 07/29/18 08:00 67 07/29/18 08:00 Mechanical Ventilator 07/29/18 07:45 97.9 68 24 99/60 (73) 100 07/29/18 07:11 63 21 35 07/29/18 05:30 61 20 35 07/29/18 04:00 35 07/29/18 04:00 97.7 80 20 87/47 (60) 100 07/29/18 04:00 61 07/29/18 04:00 Mechanical Ventilator 07/29/18 03:05 63 19 35 07/29/18 01:12 72 21 35 07/29/18 01:00 101.0 80 24 89/50 (63) 98 07/29/18 00:00 35 07/29/18 00:00 Mechanical Ventilator 07/29/18 00:00 80 07/29/18 00:00 102.0 80 24 89/50 (63) 98 07/28/18 23:15 92 29 35 07/28/18 23:00 102.0 89 18 125/76 (92) 100 07/28/18 21:10 109 27 35 07/28/18 20:00 76 07/28/18 20:00 Mechanical Ventilator 07/28/18 20:00 35 07/28/18 20:00 100.0 76 18 138/76 (96) 100 07/28/18 18:59 72 29 35 11/2/18 17:13 71 19 35 07/28/18 16:00 35 07/28/18 16:00 Mechanical Ventilator 07/28/18 16:00 97.3 53 18 135/71 (92) 100 07/28/18 15:36 52 07/28/18 14:37 55 19 35 07/28/18 12:36 52 18 35 07/28/18 12:00 Mechanical Ventilator 07/28/18 12:00 97.3 60 18 122/70 (87) 100 07/28/18 12:00 35 07/28/18 12:00 54 Intake and Output 07/28/18 07/29/18 18:59 06:59 Intake Total 1193.426 ml 610 ml Output Total 700 ml 400 ml Balance 493.426 ml 210 ml Free Water 120 ml IV Total 373.426 ml 220 ml Tube Feeding 700 ml 390 ml Output Urine Total 600 ml 400 ml Stool Total 100 ml # Bowel Movements 50 Objective GENERAL: Chronically ill-appearing male. VITAL SIGNS: Reviewed. HEENT: Negative. NECK: Supple. LUNGS: With coarse breath sounds. CARDIAC: Normal S1 and S2. Slightly tachycardic. ABDOMEN: Soft. G-tube in place.mildly distended EXTREMITIES: Noted edema. GENITOURINARY: He has suprapubic catheter. SKIN: With anasarca and healed decubitus. . Microbiology Date/Time Source Procedure Growth Status 07/26/18 16:10 Peritoneal Fluid Gram Stain - Final Resulted 07/26/18 16:10 Peritoneal Fluid Body Fluid Culture - Preliminary NO GROWTH AFTER 48 HOURS Resulted 07/26/18 21:40 Chest Catheter Tip Culture - Preliminary NO GROWTH AFTER 48 HOURS Resulted Laboratory Tests 07/29/18 03:35: Sodium Level 141, Potassium Level 4.3, Chloride Level 110H, Carbon Dioxide Level 23, Anion Gap 8, Blood Urea Nitrogen 61H, Creatinine 1.4H, Estimat Glomerular Filtration Rate 51.5, Glucose Level 123H, Calcium Level 7.5L, Ionized Calcium (Measured) 1.05L Current Medications Medications (Trade) Dose Ordered Sig/Andres Route PRN Reason Start Time Stop Time Status Last Admin Dose Admin Acetaminophen (Tylenol) 500 mg EVERY 6 HOURS PRN ORAL Mild Pain/Temp > 100.5 07/28/18 23:15 08/27/18 23:14 07/29/18 00:05 Acetaminophen/ Hydrocodone Bitart ([place] 5/325) 1 tab Q4H PRN GT For Pain 07/23/18 18:49 07/30/18 18:48 07/28/18 22:46 Atorvastatin Calcium (Lipitor) 20 mg BEDTIME GT 07/23/18 21:00 08/22/18 20:59 07/28/18 20:32 Dextrose (Dextrose 50%) 25 ml Q30M PRN IV Hypoglycemia 07/23/18 18:33 08/22/18 18:32 Dextrose (Dextrose 50%) 50 ml Q30M PRN IV Hypoglycemia 07/23/18 18:33 08/22/18 18:32 Fluconazole (Diflucan) 200 mg DAILY ORAL 07/29/18 09:00 08/05/18 08:59 07/29/18 08:38 Gabapentin (Neurontin) 300 mg Q8HR GT 07/23/18 22:00 08/22/18 21:59 07/29/18 05:50 Heparin Sodium (Porcine) (Heparin 5000 units/ml) 5,000 units EVERY 12 HOURS SUBQ 07/23/18 21:00 08/22/18 20:59 07/29/18 08:42 Hydroxyzine HCl (Vistaril) 10 mg DAILY GT 07/24/18 09:00 08/23/18 08:59 07/29/18 08:39 Insulin Aspart (NovoLOG) EVERY 6 HOURS SUBQ 07/24/18 00:00 08/23/18 00:00 07/29/18 05:52 Lansoprazole (Prevacid) 30 mg DAILY GT 07/24/18 09:00 08/23/18 08:59 07/29/18 08:38 Levetiracetam (Keppra) 500 mg Q12HR GT 07/24/18 21:00 08/23/18 20:59 07/29/18 08:38 Meropenem 1 gm/ Sodium Chloride 110 ml @ 220 mls/hr Q8HR IVPB 07/28/18 22:00 08/02/18 21:59 07/29/18 05:51 Metoclopramide HCl (Reglan) 10 mg EVERY 8 HOURS GT 07/23/18 22:00 08/22/18 21:59 07/29/18 05:50 Trimethoprim/ Sulfamethoxazole (Bactrim-DS) 1 tab Q12HR ORAL 07/28/18 21:00 08/04/18 20:59 07/29/18 08:53 Vancomycin HCl (Vanco rx to dose) 1 ea DAILY PRN MISC Per rx protocol 07/23/18 18:15 08/22/18 18:14 Vancomycin HCl 1 gm/Dextrose 275 ml @ 183.708 mls/hr Q24H IVPB 07/24/18 16:00 08/02/18 15:59 07/28/18 15:08 Vitamin A/Vitamin D (A & D Oint) 1 applic EVERY 12 HOURS TOPIC 07/23/18 21:00 08/22/18 20:59 07/29/18 08:38 Grant Stone MD Jul 29, 2018 10:40
[2018-07-29] MEDS ORDERED: NS 275ml ONE (13:18)
[2018-07-29] MEDS ORDERED: Tubing IV Secondary IV ONE (13:18)
[2018-07-29] MEDS ORDERED: Tubing Blood Filter IV ONE (13:18)
--- NOTE | 2018-07-29 15:16 | Cardiology Report ---
APPROVED REPORT EKG Measurement Heart [id number] Sinus tachycardia Low voltage QRS Nonspecific ST and T wave abnormality Abnormal ECG
[2018-07-29] MEDS: Vancomycin 1gm/D5W 275ml IVPB SCH ×2 (15:49)
--- NOTE | 2018-07-29 17:31 | General Progress Note ---
Assessment/Plan Assessment/Plan Assessment - Dark GT aspirate, doubt GI Bleed - Anemia - Abnormal LFT, cirrhosis/ascites on Ultrasound - GB mass with elevated tumor markers - patient not candidate for surgery - GNR bacteremia - diarrhea, C Diff (-) - Resp failure / trach - dysphagia / GT - lactic acidosis and leukocytosis on admission - Bacteremia, GNR Recommendations - Paracentesis - negative - Check hepatitis serologies - negative - transfuse PRN - PPI - follow labs - check ascites cytology - negative - check CEA/19-9 - mildly elevated - Continue feeds Subjective Allergies: Coded Allergies: No Known Allergies (Unverified , 07/23/18) Subjective above noted d/w RN tolerating TF scant loose BM (+) rectal tube Objective Last 24 Hour Vital Signs Date Time Temp Pulse Resp B/P (MAP) Pulse Ox O2 Delivery O2 Flow Rate FiO2 07/29/18 16:42 58 19 30 07/29/18 16:00 Mechanical Ventilator 07/29/18 16:00 30 07/29/18 16:00 63 07/29/18 15:55 98.2 63 21 96/52 (67) 100 07/29/18 14:46 69 24 30 07/29/18 12:53 64 22 30 07/29/18 12:00 60 07/29/18 12:00 Mechanical Ventilator 07/29/18 12:00 35 07/29/18 11:15 97.9 64 23 98/54 (69) 100 07/29/18 10:58 61 22 35 07/29/18 09:32 60 21 35 07/29/18 08:00 35 07/29/18 08:00 67 07/29/18 08:00 Mechanical Ventilator 07/29/18 07:45 97.9 68 24 99/60 (73) 100 07/29/18 07:11 63 21 35 07/29/18 05:30 61 20 35 07/29/18 04:00 35 07/29/18 04:00 97.7 80 20 87/47 (60) 100 07/29/18 04:00 61 07/29/18 04:00 Mechanical Ventilator 07/29/18 03:05 63 19 35 07/29/18 01:12 72 21 35 07/29/18 01:00 101.0 80 24 89/50 (63) 98 07/29/18 00:00 35 07/29/18 00:00 Mechanical Ventilator 07/29/18 00:00 80 07/29/18 00:00 102.0 80 24 89/50 (63) 98 07/28/18 23:15 92 29 35 07/28/18 23:00 102.0 89 18 125/76 (92) 100 07/28/18 21:10 109 27 35 07/28/18 20:00 76 07/28/18 20:00 Mechanical Ventilator 07/28/18 20:00 35 07/28/18 20:00 100.0 76 18 138/76 (96) 100 07/28/18 18:59 72 29 35 Intake and Output 07/28/18 07/29/18 19:00 07:00 Intake Total 1143.426 ml 1705 ml Output Total 700 ml 400 ml Balance 443.426 ml 1305 ml Free Water 120 ml 30 ml IV Total 373.426 ml 1220 ml Tube Feeding 650 ml 455 ml Output Urine Total 600 ml 400 ml Stool Total 100 ml # Bowel Movements 50 Laboratory Tests 07/29/18 03:35: Sodium Level 141, Potassium Level 4.3, Chloride Level 110H, Carbon Dioxide Level 23, Anion Gap 8, Blood Urea Nitrogen 61H, Creatinine 1.4H, Estimat Glomerular Filtration Rate 51.5, Glucose Level 123H, Calcium Level 7.5L, Ionized Calcium (Measured) 1.05L Height (Feet): 5 Height (Inches): 5.00 Weight (Pounds): 190 Objective Debilitated WM NCAT supple CTA RRR abd soft ND NT, (+) GT no edema Victorino Seay MD Jul 29, 2018 17:31
[2018-07-29] MEDS: Atorvastatin 20mg tab GT SCH (20:33)
[2018-07-30] VITALS: BP 116/62
[2018-07-30 04:00] VITALS: BP 112/69
[2018-07-30 05:14] LABS: ANION GAP 5 mmol/L (5-15); BLOOD UREA NITROGEN 61 mg/dL (7-18); CALCIUM 7.6 MG/DL (8.5-10.1); CARBON DIOXIDE 25 MMOL/L (21-32); CHLORIDE 112 MMOL/L (98-107); CREATININE 1.3 MG/DL (0.55-1.30); POTASSIUM 4.5 MMOL/L (3.5-5.1); SODIUM 142 MMOL/L (136-145)
[2018-07-30] MEDS: NovoLOG Insulin Flexpen SUBQ SCH ×5 (05:17→23:52)
[2018-07-30] MEDS: Meropenem 1 GM in NS 110 ML IVPB SCH ×3 (05:17→21:32)
[2018-07-30] MEDS: Metoclopramide 10mg/10ml Liq GT SCH (05:17)
--- NOTE | 2018-07-30 07:40 | Nephrology Progress Note ---
Assessment/Plan Assessment/Plan A/P 1. CKD 3B. Cr stable 2. Anasarca- low albumin - high protein feeds to continue 3. Sepsis- Poly microbial sepsis with Klebsiella, proteus & Staph epidermidis UTI, Pneumonia- Abx per ID 4. Seizure disorder- Keppra. 5. Chronic respiratory failure-trach/vent 6. Hypocalcemia- replace today 7. Hypotension- fluid bolus challenge prn Subjective Date patient seen: Jul 30, 2018 Time patient seen: 07:35 ROS Limited/Unobtainable: Yes Allergies: Coded Allergies: No Known Allergies (Unverified , 07/23/18) Subjective Patient mechanically ventilated Objective Last 24 Hour Vital Signs Date Time Temp Pulse Resp B/P (MAP) Pulse Ox O2 Delivery O2 Flow Rate FiO2 07/30/18 07:05 53 19 50 07/30/18 05:30 55 23 50 07/30/18 04:00 Mechanical Ventilator 07/30/18 04:00 97.9 74 20 112/69 (83) 100 07/30/18 04:00 50 07/30/18 04:00 30 07/30/18 03:30 58 20 50 07/30/18 00:56 54 18 50 07/30/18 00:00 30 07/30/18 00:00 98.3 69 22 116/62 (80) 100 07/30/18 00:00 Mechanical Ventilator 07/30/18 00:00 68 07/29/18 23:30 57 22 50 07/29/18 21:30 59 20 50 07/29/18 20:00 65 07/29/18 20:00 Mechanical Ventilator 07/29/18 20:00 98.1 63 25 101/52 (68) 100 07/29/18 20:00 30 07/29/18 19:30 58 21 50 07/29/18 16:42 58 19 30 07/29/18 16:00 Mechanical Ventilator 07/29/18 16:00 30 07/29/18 16:00 63 07/29/18 15:55 98.2 63 21 96/52 (67) 100 07/29/18 14:46 69 24 30 07/29/18 12:53 64 22 30 07/29/18 12:00 60 07/29/18 12:00 Mechanical Ventilator 07/29/18 12:00 35 07/29/18 11:15 97.9 64 23 98/54 (69) 100 07/29/18 10:58 61 22 35 07/29/18 09:32 60 21 35 07/29/18 08:00 35 07/29/18 08:00 67 07/29/18 08:00 Mechanical Ventilator 07/29/18 07:45 97.9 68 24 99/60 (73) 100 Intake and Output 07/29/18 07/30/18 19:00 07:00 Intake Total 2385.000 ml 1400 ml Output Total 450 ml 550 ml Balance 1935.000 ml 850 ml Free Water 90 ml 50 ml IV Total 1515.000 ml 440 ml Tube Feeding 780 ml 910 ml Output Urine Total 400 ml 450 ml Stool Total 50 ml 100 ml Laboratory Tests 07/30/18 03:30: Sodium Level 142, Potassium Level 4.5, Chloride Level 112H, Carbon Dioxide Level 25, Anion Gap 5, Blood Urea Nitrogen 61H, Creatinine 1.3, Estimat Glomerular Filtration Rate 56.1, Glucose Level 76, Calcium Level 7.6L Height (Feet): 5 Height (Inches): 5.00 Weight (Pounds): 190 General Appearance: no apparent distress EENT: normal ENT inspection Neck: normal alignment, supple Cardiovascular: normal rate, regular rhythm Respiratory/Chest: lungs clear, normal breath sounds Abdomen: non tender, soft Edema: no edema noted Arm (L), no edema noted Arm (R), no edema noted Leg (L), no edema noted Leg (R), no edema noted Pedal (L), no edema noted Pedal (R), no edema noted Generalized Sumit Merchant MD Jul 30, 2018 07:40
[2018-07-30 08:00] VITALS: BP 105/47
[2018-07-30] MEDS: levETIRAcetam 500mg/5ml Liquid GT SCH ×2 (08:09→21:33)
[2018-07-30] MEDS: Fluconazole 100mg tab ORAL SCH (08:10)
[2018-07-30] MEDS: Vitamin A&D Oint 2oz Tube TOPIC SCH ×2 (08:10→21:32)
[2018-07-30] MEDS: Bactrim-DS 1 tab ORAL SCH ×2 (08:10→21:00)
[2018-07-30] MEDS: Heparin 5000 units/ml inj SUBQ SCH ×2 (08:12→21:35)
--- NOTE | 2018-07-30 08:21 | Pulmonology Progress Note ---
Assessment/Plan Assessment/Plan IMPRESSION: 1. Possible sepsis. 2. Acute on chronic renal failure. 3. Anemia. 4. Possible gastrointestinal bleed. 5. Leukocytosis. 6. Mild coagulopathy. 7. Prior history of G-tube intolerance. 8. Suprapubic catheter. 9. Respiratory failure. 10. Tracheostomy 11. ascites, s/p tap 12. MDR PLAN iv antibiotics monitor fluid shifts check labs stabilize vent feeds recheck labs dc to snf in am if stable impression, plan, and exam edited and reviewed in detail care discussed with RN Subjective ROS Limited/Unobtainable: Yes Allergies: Coded Allergies: No Known Allergies (Unverified , 07/23/18) Subjective CARE NOTED fully supported Objective Last 24 Hour Vital Signs Date Time Temp Pulse Resp B/P (MAP) Pulse Ox O2 Delivery O2 Flow Rate FiO2 07/30/18 07:05 53 19 50 07/30/18 05:30 55 23 50 07/30/18 04:00 Mechanical Ventilator 07/30/18 04:00 97.9 74 20 112/69 (83) 100 07/30/18 04:00 50 07/30/18 04:00 30 07/30/18 03:30 58 20 50 07/30/18 00:56 54 18 50 07/30/18 00:00 30 07/30/18 00:00 98.3 69 22 116/62 (80) 100 07/30/18 00:00 Mechanical Ventilator 07/30/18 00:00 68 07/29/18 23:30 57 22 50 07/29/18 21:30 59 20 50 07/29/18 20:00 65 07/29/18 20:00 Mechanical Ventilator 07/29/18 20:00 98.1 63 25 101/52 (68) 100 07/29/18 20:00 30 07/29/18 19:30 58 21 50 07/29/18 16:42 58 19 30 07/29/18 16:00 Mechanical Ventilator 07/29/18 16:00 30 07/29/18 16:00 63 07/29/18 15:55 98.2 63 21 96/52 (67) 100 07/29/18 14:46 69 24 30 07/29/18 12:53 64 22 30 07/29/18 12:00 60 07/29/18 12:00 Mechanical Ventilator 07/29/18 12:00 35 07/29/18 11:15 97.9 64 23 98/54 (69) 100 07/29/18 10:58 61 22 35 07/29/18 09:32 60 21 35 Intake and Output 07/29/18 07/30/18 19:00 07:00 Intake Total 2385.000 ml 1400 ml Output Total 450 ml 550 ml Balance 1935.000 ml 850 ml Free Water 90 ml 50 ml IV Total 1515.000 ml 440 ml Tube Feeding 780 ml 910 ml Output Urine Total 400 ml 450 ml Stool Total 50 ml 100 ml Objective GENERAL: Chronically ill-appearing male. VITAL SIGNS: Reviewed. HEENT: Negative. NECK: Supple. LUNGS: With coarse breath sounds. slightly improved CARDIAC: Normal S1 and S2. RRR ABDOMEN: Soft. G-tube in place.mildly distended EXTREMITIES: Noted edema. GENITOURINARY: He has suprapubic catheter. SKIN: With anasarca and healed decubitus. . Laboratory Tests 07/30/18 03:30: Sodium Level 142, Potassium Level 4.5, Chloride Level 112H, Carbon Dioxide Level 25, Anion Gap 5, Blood Urea Nitrogen 61H, Creatinine 1.3, Estimat Glomerular Filtration Rate 56.1, Glucose Level 76, Calcium Level 7.6L Current Medications Medications (Trade) Dose Ordered Sig/Andres Route PRN Reason Start Time Stop Time Status Last Admin Dose Admin Acetaminophen (Tylenol) 500 mg EVERY 6 HOURS PRN ORAL Mild Pain/Temp > 100.5 07/28/18 23:15 08/27/18 23:14 07/29/18 00:05 Acetaminophen/ Hydrocodone Bitart ([place] 5/325) 1 tab Q4H PRN GT For Pain 07/23/18 18:49 07/30/18 18:48 07/28/18 22:46 Atorvastatin Calcium (Lipitor) 20 mg BEDTIME GT 07/23/18 21:00 08/22/18 20:59 07/29/18 20:33 Calcium Gluconate 2 gm/Sodium Chloride 130 ml @ 130 mls/hr ONCE ONCE IVPB 07/30/18 09:00 07/30/18 09:59 Dextrose (Dextrose 50%) 25 ml Q30M PRN IV Hypoglycemia 07/23/18 18:33 08/22/18 18:32 Dextrose (Dextrose 50%) 50 ml Q30M PRN IV Hypoglycemia 07/23/18 18:33 08/22/18 18:32 Fluconazole (Diflucan) 200 mg DAILY ORAL 07/29/18 09:00 08/05/18 08:59 07/30/18 08:10 Gabapentin (Neurontin) 300 mg Q8HR GT 07/23/18 22:00 08/22/18 21:59 07/30/18 05:18 Heparin Sodium (Porcine) (Heparin 5000 units/ml) 5,000 units EVERY 12 HOURS SUBQ 07/23/18 21:00 08/22/18 20:59 07/30/18 08:12 Hydroxyzine HCl (Vistaril) 10 mg DAILY GT 07/24/18 09:00 08/23/18 08:59 07/30/18 08:10 Insulin Aspart (NovoLOG) EVERY 6 HOURS SUBQ 07/24/18 00:00 08/23/18 00:00 07/29/18 17:06 Lansoprazole (Prevacid) 30 mg DAILY GT 07/24/18 09:00 08/23/18 08:59 07/30/18 08:09 Levetiracetam (Keppra) 500 mg Q12HR GT 07/24/18 21:00 08/23/18 20:59 07/30/18 08:09 Meropenem 1 gm/ Sodium Chloride 110 ml @ 220 mls/hr Q8HR IVPB 07/28/18 22:00 08/02/18 21:59 07/30/18 05:17 Metoclopramide HCl (Reglan) 10 mg EVERY 8 HOURS GT 07/23/18 22:00 08/22/18 21:59 07/30/18 05:17 Trimethoprim/ Sulfamethoxazole (Bactrim-DS) 1 tab Q12HR ORAL 07/28/18 21:00 08/04/18 20:59 07/30/18 08:10 Vancomycin HCl (Vanco rx to dose) 1 ea DAILY PRN MISC Per rx protocol 07/23/18 18:15 08/22/18 18:14 Vancomycin HCl 1 gm/Dextrose 275 ml @ 183.708 mls/hr Q24H IVPB 07/24/18 16:00 08/02/18 15:59 07/29/18 15:49 Vitamin A/Vitamin D (A & D Oint) 1 applic EVERY 12 HOURS TOPIC 07/23/18 21:00 08/22/18 20:59 07/30/18 08:10 Grant Stone MD Jul 30, 2018 08:21
--- NOTE | 2018-07-30 08:30 | Infectious Diseases Prog Note ---
Assessment/Plan Assessment/Plan A; Poly microbial sepsis with Klebsiella, proteus & Staph epidermidis UTI Pneumonia Cirrhosis with Ascites VDRF DM Multiple pressure ulcer Acute renal failure P: 1. continue iv vancomycin 2 more days 2. continue meropenem, Bactrim 5 more days 3. continue fluconazole 2 more days Subjective ROS Limited/Unobtainable: Yes Constitutional: Reports: no symptoms Allergies: Coded Allergies: No Known Allergies (Unverified , 07/23/18) Objective Vital Signs Last 24 Hour Vital Signs Date Time Temp Pulse Resp B/P (MAP) Pulse Ox O2 Delivery O2 Flow Rate FiO2 07/30/18 07:05 53 19 50 07/30/18 05:30 55 23 50 07/30/18 04:00 Mechanical Ventilator 07/30/18 04:00 97.9 74 20 112/69 (83) 100 07/30/18 04:00 50 07/30/18 04:00 30 07/30/18 03:30 58 20 50 07/30/18 00:56 54 18 50 07/30/18 00:00 30 07/30/18 00:00 98.3 69 22 116/62 (80) 100 07/30/18 00:00 Mechanical Ventilator 07/30/18 00:00 68 07/29/18 23:30 57 22 50 07/29/18 21:30 59 20 50 07/29/18 20:00 65 07/29/18 20:00 Mechanical Ventilator 07/29/18 20:00 98.1 63 25 101/52 (68) 100 07/29/18 20:00 30 07/29/18 19:30 58 21 50 07/29/18 16:42 58 19 30 07/29/18 16:00 Mechanical Ventilator 07/29/18 16:00 30 07/29/18 16:00 63 07/29/18 15:55 98.2 63 21 96/52 (67) 100 07/29/18 14:46 69 24 30 07/29/18 12:53 64 22 30 07/29/18 12:00 60 07/29/18 12:00 Mechanical Ventilator 07/29/18 12:00 35 07/29/18 11:15 97.9 64 23 98/54 (69) 100 07/29/18 10:58 61 22 35 07/29/18 09:32 60 21 35 Height (Feet): 5 Height (Inches): 5.00 Weight (Pounds): 190 HEENT: status post trach Respiratory/Chest: rhonchi - bilaterally, other - on ventilator Cardiovascular: bradycardia Abdomen: soft, non tender, other - GT feeding Extremities: other - edema in arms Skin: ulcers Neurologic/Psychiatric: unresponsiveness Laboratory Tests Test 07/30/18 03:30 Sodium Level 142 MMOL/L (136-145) Potassium Level 4.5 MMOL/L (3.5-5.1) Chloride Level 112 MMOL/L (98-107) H Carbon Dioxide Level 25 MMOL/L (21-32) Anion Gap 5 mmol/L (5-15) Blood Urea Nitrogen 61 mg/dL (7-18) H Creatinine 1.3 MG/DL (0.55-1.30) Estimat Glomerular Filtration Rate 56.1 mL/min (>60) Glucose Level 76 MG/DL (74-106) Calcium Level 7.6 MG/DL (8.5-10.1) L Current Medications Medications (Trade) Dose Ordered Sig/Andres Route PRN Reason Start Time Stop Time Status Last Admin Dose Admin Acetaminophen (Tylenol) 500 mg EVERY 6 HOURS PRN ORAL Mild Pain/Temp > 100.5 07/28/18 23:15 08/27/18 23:14 07/29/18 00:05 Acetaminophen/ Hydrocodone Bitart ([place] 5/325) 1 tab Q4H PRN GT For Pain 07/23/18 18:49 07/30/18 18:48 07/28/18 22:46 Atorvastatin Calcium (Lipitor) 20 mg BEDTIME GT 07/23/18 21:00 08/22/18 20:59 07/29/18 20:33 Calcium Gluconate 2 gm/Sodium Chloride 130 ml @ 130 mls/hr ONCE ONCE IVPB 07/30/18 09:00 07/30/18 09:59 Dextrose (Dextrose 50%) 25 ml Q30M PRN IV Hypoglycemia 07/23/18 18:33 08/22/18 18:32 Dextrose (Dextrose 50%) 50 ml Q30M PRN IV Hypoglycemia 07/23/18 18:33 08/22/18 18:32 Fluconazole (Diflucan) 200 mg DAILY ORAL 07/29/18 09:00 08/05/18 08:59 11/4/18 08:10 Gabapentin (Neurontin) 300 mg Q8HR GT 07/23/18 22:00 08/22/18 21:59 07/30/18 05:18 Heparin Sodium (Porcine) (Heparin 5000 units/ml) 5,000 units EVERY 12 HOURS SUBQ 07/23/18 21:00 08/22/18 20:59 07/30/18 08:12 Hydroxyzine HCl (Vistaril) 10 mg DAILY GT 07/24/18 09:00 08/23/18 08:59 07/30/18 08:10 Insulin Aspart (NovoLOG) EVERY 6 HOURS SUBQ 07/24/18 00:00 08/23/18 00:00 07/29/18 17:06 Lansoprazole (Prevacid) 30 mg DAILY GT 07/24/18 09:00 08/23/18 08:59 07/30/18 08:09 Levetiracetam (Keppra) 500 mg Q12HR GT 07/24/18 21:00 08/23/18 20:59 07/30/18 08:09 Meropenem 1 gm/ Sodium Chloride 110 ml @ 220 mls/hr Q8HR IVPB 07/28/18 22:00 08/02/18 21:59 07/30/18 05:17 Metoclopramide HCl (Reglan) 10 mg EVERY 8 HOURS GT 07/23/18 22:00 08/22/18 21:59 07/30/18 05:17 Trimethoprim/ Sulfamethoxazole (Bactrim-DS) 1 tab Q12HR ORAL 07/28/18 21:00 08/04/18 20:59 07/30/18 08:10 Vancomycin HCl (Vanco rx to dose) 1 ea DAILY PRN MISC Per rx protocol 07/23/18 18:15 08/22/18 18:14 Vancomycin HCl 1 gm/Dextrose 275 ml @ 183.708 mls/hr Q24H IVPB 07/24/18 16:00 08/02/18 15:59 07/29/18 15:49 Vitamin A/Vitamin D (A & D Oint) 1 applic EVERY 12 HOURS TOPIC 07/23/18 21:00 08/22/18 20:59 07/30/18 08:10 Fabio Barkley MD Jul 30, 2018 08:30
[2018-07-30] MEDS ORDERED: Calcium Gluconate 10% 2 GM in NS 110 ML IVPB ONE (09:00)
[2018-07-30] MEDS ORDERED: Tubing IV Secondary IV ONE (09:22)
[2018-07-30] MEDS ORDERED: NS 275ml ONE (09:22)
--- NOTE | 2018-07-30 10:50 | General Progress Note ---
Assessment/Plan Assessment/Plan Assessment - Dark GT aspirate, doubt GI Bleed - Anemia - Abnormal LFT, cirrhosis/ascites on Ultrasound - GB mass with elevated tumor markers - patient not candidate for surgery - GNR bacteremia - diarrhea, C Diff (-) - Resp failure / trach - dysphagia / GT - lactic acidosis and leukocytosis on admission - Bacteremia, GNR Recommendations - Paracentesis - negative - Check hepatitis serologies - negative - transfuse PRN - PPI - follow labs - check ascites cytology - negative - check CEA/19-9 - mildly elevated - Continue feeds Subjective Allergies: Coded Allergies: No Known Allergies (Unverified , 07/23/18) Subjective above noted d/w RN tolerating TF scant loose BM (+) rectal tube Objective Last 24 Hour Vital Signs Date Time Temp Pulse Resp B/P (MAP) Pulse Ox O2 Delivery O2 Flow Rate FiO2 07/30/18 08:54 64 27 50 07/30/18 08:00 97.7 55 22 105/47 (66) 100 07/30/18 08:00 30 07/30/18 08:00 56 07/30/18 08:00 Mechanical Ventilator 07/30/18 07:05 53 19 50 07/30/18 05:30 55 23 50 07/30/18 04:00 Mechanical Ventilator 07/30/18 04:00 97.9 74 20 112/69 (83) 100 07/30/18 04:00 50 07/30/18 04:00 30 07/30/18 03:30 58 20 50 07/30/18 00:56 54 18 50 07/30/18 00:00 30 07/30/18 00:00 98.3 69 22 116/62 (80) 100 07/30/18 00:00 Mechanical Ventilator 07/30/18 00:00 68 07/29/18 23:30 57 22 50 07/29/18 21:30 59 20 50 07/29/18 20:00 65 07/29/18 20:00 Mechanical Ventilator 07/29/18 20:00 98.1 63 25 101/52 (68) 100 07/29/18 20:00 30 07/29/18 19:30 58 21 50 07/29/18 16:42 58 19 30 07/29/18 16:00 Mechanical Ventilator 07/29/18 16:00 30 07/29/18 16:00 63 07/29/18 15:55 98.2 63 21 96/52 (67) 100 07/29/18 14:46 69 24 30 07/29/18 12:53 64 22 30 07/29/18 12:00 60 07/29/18 12:00 Mechanical Ventilator 07/29/18 12:00 35 07/29/18 11:15 97.9 64 23 98/54 (69) 100 07/29/18 10:58 61 22 35 Intake and Output 07/29/18 07/30/18 18:59 06:59 Intake Total 3415.000 ml 1400 ml Output Total 450 ml 550 ml Balance 2965.000 ml 850 ml Free Water 120 ml 50 ml IV Total 2515.000 ml 440 ml Tube Feeding 780 ml 910 ml Output Urine Total 400 ml 450 ml Stool Total 50 ml 100 ml Laboratory Tests 07/30/18 03:30: Sodium Level 142, Potassium Level 4.5, Chloride Level 112H, Carbon Dioxide Level 25, Anion Gap 5, Blood Urea Nitrogen 61H, Creatinine 1.3, Estimat Glomerular Filtration Rate 56.1, Glucose Level 76, Calcium Level 7.6L Height (Feet): 5 Height (Inches): 5.00 Weight (Pounds): 190 Objective Debilitated WM NCAT supple CTA RRR abd soft ND NT, (+) GT no edema Victorino Seay MD Jul 30, 2018 10:50
[2018-07-30 11:55] VITALS: BP 136/69
[2018-07-30] MEDS: Vancomycin 1gm/D5W 275ml IVPB SCH ×2 (15:45)
[2018-07-30 16:00] VITALS: BP 117/69
[2018-07-30 20:00] VITALS: BP 119/63
[2018-07-30] MEDS: Atorvastatin 20mg tab GT SCH (21:33)
[2018-07-31] VITALS: BP 119/61
[2018-07-31 04:00] VITALS: BP 119/66
[2018-07-31 05:00] LABS: ANION GAP 6 mmol/L (5-15); BLOOD UREA NITROGEN 60 mg/dL (7-18); CALCIUM 7.4 MG/DL (8.5-10.1); CARBON DIOXIDE 24 MMOL/L (21-32); CHLORIDE 112 MMOL/L (98-107); CREATININE 1.3 MG/DL (0.55-1.30); POTASSIUM 4.4 MMOL/L (3.5-5.1); SODIUM 141 MMOL/L (136-145)
[2018-07-31] MEDS: Meropenem 1 GM in NS 110 ML IVPB SCH ×3 (05:46→21:06)
[2018-07-31] MEDS: NovoLOG Insulin Flexpen SUBQ SCH ×4 (05:47→23:04)
[2018-07-31 08:00] VITALS: BP 120/68
--- NOTE | 2018-07-31 08:31 | Nephrology Progress Note ---
Assessment/Plan Assessment/Plan A/P 1. CKD 3B- BUN/Cr stable - OK for DC from renal point 2. Anasarca- low albumin - high protein feeds. Stable 3. Sepsis- Poly microbial sepsis with Klebsiella, proteus & Staph epidermidis Abx per ID 4. Seizure disorder- Keppra. 5. Chronic respiratory failure-trach/vent 6. Hypocalcemia- replace today Subjective Date patient seen: Jul 31, 2018 Time patient seen: 08:30 ROS Limited/Unobtainable: Yes Allergies: Coded Allergies: No Known Allergies (Unverified , 07/23/18) Subjective Patient mechanically ventilated thru trach Objective Last 24 Hour Vital Signs Date Time Temp Pulse Resp B/P (MAP) Pulse Ox O2 Delivery O2 Flow Rate FiO2 07/31/18 08:00 30 07/31/18 08:00 97.7 57 22 120/68 (85) 98 07/31/18 05:30 56 26 50 07/31/18 04:00 51 07/31/18 04:00 30 07/31/18 04:00 98.2 58 23 119/66 (83) 98 07/31/18 04:00 Mechanical Ventilator 07/31/18 02:37 53 22 50 07/31/18 01:32 56 22 50 07/31/18 00:00 Mechanical Ventilator 07/31/18 00:00 97.7 59 20 119/61 (80) 100 07/31/18 00:00 53 07/30/18 22:31 59 21 50 07/30/18 21:04 52 20 50 07/30/18 20:00 Mechanical Ventilator 07/30/18 20:00 97.7 58 23 119/63 (81) 100 07/30/18 20:00 30 07/30/18 20:00 55 07/30/18 18:56 55 24 50 07/30/18 17:22 54 19 50 07/30/18 16:00 30 07/30/18 16:00 97.7 56 22 117/69 (85) 100 07/30/18 16:00 58 07/30/18 16:00 Mechanical Ventilator 07/30/18 15:06 55 23 50 07/30/18 12:53 58 22 50 07/30/18 12:00 56 07/30/18 12:00 Mechanical Ventilator 07/30/18 12:00 30 07/30/18 11:55 97.3 62 20 136/69 (91) 100 07/30/18 10:52 54 19 50 07/30/18 08:54 64 27 50 Intake and Output 07/30/18 07/31/18 19:00 07:00 Intake Total 1385.000 ml 915 ml Output Total 650 ml 400 ml Balance 735.000 ml 515 ml Free Water 90 ml 90 ml IV Total 515.000 ml 110 ml Tube Feeding 780 ml 715 ml Output Urine Total 550 ml 400 ml Stool Total 100 ml # Bowel Movements 100 Laboratory Tests 07/31/18 03:12: Sodium Level 141, Potassium Level 4.4, Chloride Level 112H, Carbon Dioxide Level 24, Anion Gap 6, Blood Urea Nitrogen 60H, Creatinine 1.3, Estimat Glomerular Filtration Rate 56.1, Glucose Level 117H, Calcium Level 7.4L Height (Feet): 5 Height (Inches): 5.00 Weight (Pounds): 190 General Appearance: no apparent distress, alert EENT: normal ENT inspection, TMs normal Neck: normal alignment, supple Cardiovascular: normal rate, regular rhythm Respiratory/Chest: lungs clear, normal breath sounds Abdomen: non tender, soft Edema: 2+ Arm (L), 2+ Arm (R), 2+ Leg (L), 2+ Leg (R), 2+ Pedal (L), 2+ Pedal ( R), 2+ Generalized Sumit Merchant MD Jul 31, 2018 08:31
[2018-07-31] MEDS: Bactrim-DS 1 tab ORAL SCH ×2 (08:32→20:27)
[2018-07-31] MEDS: Fluconazole 100mg tab ORAL SCH (08:32)
[2018-07-31] MEDS: levETIRAcetam 500mg/5ml Liquid GT SCH ×2 (08:32→21:06)
[2018-07-31] MEDS: Vitamin A&D Oint 2oz Tube TOPIC SCH ×2 (08:33→20:27)
[2018-07-31] MEDS: Heparin 5000 units/ml inj SUBQ SCH ×2 (08:43→20:28)
--- NOTE | 2018-07-31 08:57 | Pulmonology Progress Note ---
Assessment/Plan Assessment/Plan IMPRESSION: 1. Possible sepsis. 2. Acute on chronic renal failure. 3. Anemia. 4. Possible gastrointestinal bleed. 5. Leukocytosis. 6. Mild coagulopathy. 7. Prior history of G-tube intolerance. 8. Suprapubic catheter. 9. Respiratory failure. 10. Tracheostomy 11. ascites, s/p tap 12. MDR PLAN iv antibiotics- complete monitor fluid shifts check labs stabilize vent feeds recheck labs dc to snf today impression, plan, and exam edited and reviewed in detail care discussed with RN Subjective ROS Limited/Unobtainable: Yes Allergies: Coded Allergies: No Known Allergies (Unverified , 07/23/18) Subjective CARE NOTED fully supported Objective Last 24 Hour Vital Signs Date Time Temp Pulse Resp B/P (MAP) Pulse Ox O2 Delivery O2 Flow Rate FiO2 07/31/18 08:00 30 07/31/18 08:00 97.7 57 22 120/68 (85) 98 07/31/18 05:30 56 26 50 07/31/18 04:00 51 07/31/18 04:00 30 07/31/18 04:00 98.2 58 23 119/66 (83) 98 07/31/18 04:00 Mechanical Ventilator 07/31/18 02:37 53 22 50 07/31/18 01:32 56 22 50 07/31/18 00:00 Mechanical Ventilator 07/31/18 00:00 97.7 59 20 119/61 (80) 100 07/31/18 00:00 53 07/30/18 22:31 59 21 50 07/30/18 21:04 52 20 50 07/30/18 20:00 Mechanical Ventilator 07/30/18 20:00 97.7 58 23 119/63 (81) 100 07/30/18 20:00 30 07/30/18 20:00 55 07/30/18 18:56 55 24 50 07/30/18 17:22 54 19 50 07/30/18 16:00 30 07/30/18 16:00 97.7 56 22 117/69 (85) 100 07/30/18 16:00 58 07/30/18 16:00 Mechanical Ventilator 07/30/18 15:06 55 23 50 07/30/18 12:53 58 22 50 07/30/18 12:00 56 07/30/18 12:00 Mechanical Ventilator 07/30/18 12:00 30 07/30/18 11:55 97.3 62 20 136/69 (91) 100 07/30/18 10:52 54 19 50 Intake and Output 07/30/18 07/31/18 19:00 07:00 Intake Total 1385.000 ml 915 ml Output Total 650 ml 400 ml Balance 735.000 ml 515 ml Free Water 90 ml 90 ml IV Total 515.000 ml 110 ml Tube Feeding 780 ml 715 ml Output Urine Total 550 ml 400 ml Stool Total 100 ml # Bowel Movements 100 Objective GENERAL: Chronically ill-appearing male. VITAL SIGNS: Reviewed. HEENT: Negative. NECK: Supple. LUNGS: With coarse breath sounds. slightly improved CARDIAC: Normal S1 and S2. RRR ABDOMEN: Soft. G-tube in place.mildly distended EXTREMITIES: Noted edema. GENITOURINARY: He has suprapubic catheter. SKIN: With anasarca and healed decubitus. . Laboratory Tests 07/31/18 03:12: Sodium Level 141, Potassium Level 4.4, Chloride Level 112H, Carbon Dioxide Level 24, Anion Gap 6, Blood Urea Nitrogen 60H, Creatinine 1.3, Estimat Glomerular Filtration Rate 56.1, Glucose Level 117H, Calcium Level 7.4L Current Medications Medications (Trade) Dose Ordered Sig/Andres Route PRN Reason Start Time Stop Time Status Last Admin Dose Admin Acetaminophen (Tylenol) 500 mg EVERY 6 HOURS PRN ORAL Mild Pain/Temp > 100.5 07/28/18 23:15 08/27/18 23:14 07/29/18 00:05 Atorvastatin Calcium (Lipitor) 20 mg BEDTIME GT 07/23/18 21:00 08/22/18 20:59 07/30/18 21:33 Calcium Gluconate 2 gm/Sodium Chloride 130 ml @ 130 mls/hr ONCE IVPB 07/31/18 09:00 07/31/18 11:00 Dextrose (Dextrose 50%) 25 ml Q30M PRN IV Hypoglycemia 07/23/18 18:33 08/22/18 18:32 Dextrose (Dextrose 50%) 50 ml Q30M PRN IV Hypoglycemia 07/23/18 18:33 08/22/18 18:32 Fluconazole (Diflucan) 200 mg DAILY ORAL 07/29/18 09:00 08/05/18 08:59 07/31/18 08:32 Gabapentin (Neurontin) 300 mg Q8HR GT 07/23/18 22:00 08/22/18 21:59 07/31/18 05:45 Heparin Sodium (Porcine) (Heparin 5000 units/ml) 5,000 units EVERY 12 HOURS SUBQ 07/23/18 21:00 08/22/18 20:59 07/31/18 08:43 Hydroxyzine HCl (Vistaril) 10 mg DAILY GT 07/24/18 09:00 08/23/18 08:59 07/31/18 08:32 Insulin Aspart (NovoLOG) EVERY 6 HOURS SUBQ 07/24/18 00:00 08/23/18 00:00 07/31/18 05:47 Lansoprazole (Prevacid) 30 mg DAILY GT 07/24/18 09:00 08/23/18 08:59 07/31/18 08:32 Levetiracetam (Keppra) 500 mg Q12HR GT 07/24/18 21:00 08/23/18 20:59 07/31/18 08:32 Meropenem 1 gm/ Sodium Chloride 110 ml @ 220 mls/hr Q8HR IVPB 07/28/18 22:00 08/02/18 21:59 07/31/18 05:46 Trimethoprim/ Sulfamethoxazole (Bactrim-DS) 1 tab Q12HR ORAL 07/28/18 21:00 08/04/18 20:59 07/31/18 08:32 Vancomycin HCl (Vanco rx to dose) 1 ea DAILY PRN MISC Per rx protocol 07/23/18 18:15 08/22/18 18:14 Vancomycin HCl 1 gm/Dextrose 275 ml @ 183.708 mls/hr Q24H IVPB 07/24/18 16:00 08/02/18 15:59 07/30/18 15:45 Vitamin A/Vitamin D (A & D Oint) 1 applic EVERY 12 HOURS TOPIC 07/23/18 21:00 08/22/18 20:59 07/31/18 08:33 Grant Stone MD Jul 31, 2018 08:57
[2018-07-31] MEDS ORDERED: Calcium Gluconate 10% 2 GM in NS 110 ML IVPB SCH ×2 (09:00→12:00)
--- NOTE | 2018-07-31 11:23 | Infectious Diseases Prog Note ---
"Assessment/Plan Assessment/Plan antibiotics : vancomycin Iv, meropenem, fluconazole, bactrim A 1. klebsiella | staph epi | proteus sepsis 2. klebsiella | e.coli | pseudomonas pneumonia 3. fungal UTI 4. respiratory failure 5. renal failure 6. seizures 7. diabetes mellitus P 1. continue iv vancomycin 1 more day 2. continue meropenem, bactrim 4 more days 3. continue fluconazole 1 more day 4. will follow up cultures Subjective ROS Limited/Unobtainable: Yes Allergies: Coded Allergies: No Known Allergies (Unverified , 07/23/18) Objective Vital Signs Last 24 Hour Vital Signs Date Time Temp Pulse Resp B/P (MAP) Pulse Ox O2 Delivery O2 Flow Rate FiO2 07/31/18 08:00 30 07/31/18 08:00 52 07/31/18 08:00 97.7 57 22 120/68 (85) 98 07/31/18 08:00 Mechanical Ventilator 07/31/18 05:30 56 26 50 07/31/18 04:00 51 07/31/18 04:00 30 07/31/18 04:00 98.2 58 23 119/66 (83) 98 07/31/18 04:00 Mechanical Ventilator 07/31/18 02:37 53 22 50 07/31/18 01:32 56 22 50 07/31/18 00:00 Mechanical Ventilator 07/31/18 00:00 97.7 59 20 119/61 (80) 100 07/31/18 00:00 53 07/30/18 22:31 59 21 50 07/30/18 21:04 52 20 50 07/30/18 20:00 Mechanical Ventilator 07/30/18 20:00 97.7 58 23 119/63 (81) 100 07/30/18 20:00 30 07/30/18 20:00 55 07/30/18 18:56 55 24 50 07/30/18 17:22 54 19 50 07/30/18 16:00 30 07/30/18 16:00 97.7 56 22 117/69 (85) 100 07/30/18 16:00 58 07/30/18 16:00 Mechanical Ventilator 07/30/18 15:06 55 23 50 07/30/18 12:53 58 22 50 07/30/18 12:00 56 07/30/18 12:00 Mechanical Ventilator 07/30/18 12:00 30 07/30/18 11:55 97.3 62 20 136/69 (91) 100 Height (Feet): 5 Height (Inches): 5.00 Weight (Pounds): 190 HEENT: status post trach Respiratory/Chest: lungs clear Cardiovascular: normal rate, regular rhythm, no gallop/murmur Abdomen: soft, non tender, other - GT Extremities: other - + edema Laboratory Tests Test 07/31/18 03:12 Sodium Level 141 MMOL/L (136-145) Potassium Level 4.4 MMOL/L (3.5-5.1) Chloride Level 112 MMOL/L (98-107) H Carbon Dioxide Level 24 MMOL/L (21-32) Anion Gap 6 mmol/L (5-15) Blood Urea Nitrogen 60 mg/dL (7-18) H Creatinine 1.3 MG/DL (0.55-1.30) Estimat Glomerular Filtration Rate 56.1 mL/min (>60) Glucose Level 117 MG/DL (74-106) H Calcium Level 7.4 MG/DL (8.5-10.1) L Current Medications Medications (Trade) Dose Ordered Sig/Andres Route PRN Reason Start Time Stop Time Status Last Admin Dose Admin Acetaminophen (Tylenol) 500 mg EVERY 6 HOURS PRN ORAL Mild Pain/Temp > 100.5 07/28/18 23:15 08/27/18 23:14 07/29/18 00:05 Atorvastatin Calcium (Lipitor) 20 mg BEDTIME GT 07/23/18 21:00 08/22/18 20:59 07/30/18 21:33 Calcium Gluconate 2 gm/Sodium Chloride 130 ml @ 130 mls/hr ONCE IVPB 07/31/18 12:00 07/31/18 13:00 Dextrose (Dextrose 50%) 25 ml Q30M PRN IV Hypoglycemia 07/23/18 18:33 08/22/18 18:32 Dextrose (Dextrose 50%) 50 ml Q30M PRN IV Hypoglycemia 07/23/18 18:33 08/22/18 18:32 Fluconazole (Diflucan) 200 mg DAILY ORAL 07/29/18 09:00 08/05/18 08:59 07/31/18 08:32 Gabapentin (Neurontin) 300 mg Q8HR GT 07/23/18 22:00 08/22/18 21:59 07/31/18 05:45 Heparin Sodium (Porcine) (Heparin 5000 units/ml) 5,000 units EVERY 12 HOURS SUBQ 07/23/18 21:00 08/22/18 20:59 07/31/18 08:43 Hydroxyzine HCl (Vistaril) 10 mg DAILY GT 07/24/18 09:00 08/23/18 08:59 07/31/18 08:32 Insulin Aspart (NovoLOG) EVERY 6 HOURS SUBQ 07/24/18 00:00 08/23/18 00:00 07/31/18 05:47 Lansoprazole (Prevacid) 30 mg DAILY GT 07/24/18 09:00 08/23/18 08:59 07/31/18 08:32 Levetiracetam (Keppra) 500 mg Q12HR GT 07/24/18 21:00 08/23/18 20:59 07/31/18 08:32 Meropenem 1 gm/ Sodium Chloride 110 ml @ 220 mls/hr Q8HR IVPB 07/28/18 22:00 08/02/18 21:59 07/31/18 05:46 Trimethoprim/ Sulfamethoxazole (Bactrim-DS) 1 tab Q12HR ORAL 07/28/18 21:00 08/04/18 20:59 07/31/18 08:32 Vancomycin HCl (Vanco rx to dose) 1 ea DAILY PRN MISC Per rx protocol 07/23/18 18:15 08/22/18 18:14 Vancomycin HCl 1 gm/Dextrose 275 ml @ 183.708 mls/hr Q24H IVPB 07/24/18 16:00 08/02/18 15:59 07/30/18 15:45 Vitamin A/Vitamin D (A & D Oint) 1 applic EVERY 12 HOURS TOPIC 07/23/18 21:00 08/22/18 20:59 07/31/18 08:33 Franny Cr MD Jul 31, 2018 11:23"
[2018-07-31 12:00] VITALS: BP_SYST 100; BP_SYST 150; BP_DIAS 64; BP_DIAS 89
[2018-07-31] MEDS ORDERED: Albuterol/Ipratropium 3ml neb HHN SCH (12:30)
[2018-07-31] MEDS ORDERED: LORazepam Inj 2mg/ml 1ml IVP PRN (13:00)
--- NOTE | 2018-07-31 14:51 | Diagnostic Imaging Report ---
Indication: Dyspnea Comparison: 07/24/2018 A single view chest radiograph was obtained. Findings: Interstitial edema demonstrated with cardiomegaly. Tracheostomy again noted. Degree of edema may be slightly improved. IMPRESSION: Interstitial pulmonary edema. Probable mild improvement
[2018-07-31 16:00] VITALS: BP 100/56
[2018-07-31] MEDS: Vancomycin 1gm/D5W 275ml IVPB SCH ×2 (18:25)
[2018-07-31] MEDS: Albuterol/Ipratropium 3ml neb HHN SCH (19:32)
[2018-07-31 20:00] VITALS: BP 94/62
[2018-07-31] MEDS: Atorvastatin 20mg tab GT SCH (20:27)
--- NOTE | 2018-07-31 21:24 | General Progress Note ---
Assessment/Plan Assessment/Plan Assessment - Dark GT aspirate, doubt GI Bleed - Anemia - Abnormal LFT, cirrhosis/ascites on Ultrasound - GB mass with elevated tumor markers - patient not candidate for surgery - GNR bacteremia - diarrhea, C Diff (-) - likely abx related - Resp failure / trach - dysphagia / GT - lactic acidosis and leukocytosis on admission - Bacteremia, GNR Recommendations - Paracentesis - negative - Check hepatitis serologies - negative - transfuse PRN - PPI - follow labs - check ascites cytology - negative - check CEA/19-9 - mildly elevated - Continue feeds Subjective Allergies: Coded Allergies: No Known Allergies (Unverified , 07/23/18) Subjective above noted d/w RN tolerating TF scant loose BM (+) rectal tube Objective Last 24 Hour Vital Signs Date Time Temp Pulse Resp B/P (MAP) Pulse Ox O2 Delivery O2 Flow Rate FiO2 07/31/18 20:57 62 23 45 07/31/18 20:00 63 07/31/18 19:50 96 21 99 Mechanical Ventilator 45 07/31/18 19:32 61 20 45 07/31/18 19:32 61 20 Mechanical Ventilator 45 07/31/18 19:32 61 20 10 Mechanical Ventilator 45 07/31/18 17:10 69 23 50 07/31/18 16:00 Mechanical Ventilator 07/31/18 16:00 72 07/31/18 16:00 98.4 67 20 100/56 (71) 100 07/31/18 16:00 50 07/31/18 15:22 76 28 50 07/31/18 13:13 95 37 50 07/31/18 13:00 50 07/31/18 12:45 101 45 96 Mechanical Ventilator 50 07/31/18 12:34 99 48 100 Mechanical Ventilator 50 07/31/18 12:34 99 48 Mechanical Ventilator 50 07/31/18 12:00 Mechanical Ventilator 07/31/18 12:00 96.8 100 46 150/89 (109) 91 07/31/18 12:00 101 07/31/18 12:00 30 07/31/18 10:33 85 33 30 07/31/18 08:33 59 23 30 07/31/18 08:00 30 07/31/18 08:00 52 07/31/18 08:00 97.7 57 22 120/68 (85) 98 07/31/18 08:00 Mechanical Ventilator 07/31/18 06:50 53 20 30 07/31/18 05:30 56 26 50 07/31/18 04:00 51 07/31/18 04:00 30 07/31/18 04:00 98.2 58 23 119/66 (83) 98 07/31/18 04:00 Mechanical Ventilator 07/31/18 02:37 53 22 50 07/31/18 01:32 56 22 50 07/31/18 00:00 Mechanical Ventilator 07/31/18 00:00 97.7 59 20 119/61 (80) 100 07/31/18 00:00 53 07/30/18 22:31 59 21 50 Intake and Output 07/30/18 07/31/18 19:00 07:00 Intake Total 1385.000 ml 915 ml Output Total 650 ml 400 ml Balance 735.000 ml 515 ml Free Water 90 ml 90 ml IV Total 515.000 ml 110 ml Tube Feeding 780 ml 715 ml Output Urine Total 550 ml 400 ml Stool Total 100 ml # Bowel Movements 100 Laboratory Tests 07/31/18 03:12: Sodium Level 141, Potassium Level 4.4, Chloride Level 112H, Carbon Dioxide Level 24, Anion Gap 6, Blood Urea Nitrogen 60H, Creatinine 1.3, Estimat Glomerular Filtration Rate 56.1, Glucose Level 117H, Calcium Level 7.4L 07/31/18 14:02: Arterial Blood pH 7.438, Arterial Blood Partial Pressure CO2 34.2L, Arterial Blood Partial Pressure O2 63.5L, Arterial Blood HCO3 22.6, Arterial Blood Oxygen Saturation 92.7L, Arterial Blood Base Excess -1.1, Rolf Test Positive Height (Feet): 5 Height (Inches): 5.00 Weight (Pounds): 190 Objective Debilitated WM NCAT supple CTA RRR abd soft ND NT, (+) GT no edema Victorino Seay MD Jul 31, 2018 21:24
[2018-08-01] VITALS: BP 102/69
[2018-08-01] MEDS: Albuterol/Ipratropium 3ml neb HHN SCH ×3 (01:16→13:37)
[2018-08-01 04:00] VITALS: BP 112/62
[2018-08-01] MEDS: levETIRAcetam 500mg/5ml Liquid GT SCH ×3 (05:10→14:23)
[2018-08-01] MEDS: NovoLOG Insulin Flexpen SUBQ SCH ×2 (05:11→12:00)
[2018-08-01] MEDS: Meropenem 1 GM in NS 110 ML IVPB SCH ×2 (05:18→14:00)
[2018-08-01 05:49] LABS: ANION GAP 5 mmol/L (5-15); BLOOD UREA NITROGEN 59 mg/dL (7-18); CALCIUM 7.5 MG/DL (8.5-10.1); CARBON DIOXIDE 25 MMOL/L (21-32); CHLORIDE 112 MMOL/L (98-107); CREATININE 1.4 MG/DL (0.55-1.30); SODIUM 142 MMOL/L (136-145)
[2018-08-01 08:00] VITALS: BP 130/83
--- NOTE | 2018-08-01 08:16 | Nephrology Progress Note ---
Assessment/Plan Assessment/Plan A/P 1. CKD 3B- BUN/Cr stable - Monitor Cr and avoid volume depletion 2. Anasarca- low albumim, high protein feeds. Stable 3. Sepsis- Poly microbial sepsis with Klebsiella, proteus & Staph epidermidis Abx per ID 4. Seizure disorder- Keppra. 5. Chronic respiratory failure-trach/vent 6. Hypocalcemia- corrected Subjective Date patient seen: Aug 01, 2018 Time patient seen: 08:14 ROS Limited/Unobtainable: Yes Allergies: Coded Allergies: No Known Allergies (Unverified , 07/23/18) Subjective Patient mechanically ventilated. Trached Objective Last 24 Hour Vital Signs Date Time Temp Pulse Resp B/P (MAP) Pulse Ox O2 Delivery O2 Flow Rate FiO2 08/01/18 08:00 98.4 67 23 130/83 (99) 100 08/01/18 08:00 45 08/01/18 04:52 61 24 45 08/01/18 04:00 Mechanical Ventilator 08/01/18 04:00 50 08/01/18 04:00 61 08/01/18 04:00 98.2 80 18 112/62 (79) 100 08/01/18 02:36 56 25 45 08/01/18 01:24 73 24 99 Mechanical Ventilator 45 08/01/18 01:16 59 16 100 Mechanical Ventilator 45 08/01/18 00:54 62 26 45 08/01/18 00:00 62 08/01/18 00:00 50 08/01/18 00:00 Mechanical Ventilator 08/01/18 00:00 97.9 79 20 102/69 (80) 99 07/31/18 22:52 65 22 45 07/31/18 20:57 62 23 45 07/31/18 20:00 63 07/31/18 20:00 Mechanical Ventilator 07/31/18 20:00 50 07/31/18 20:00 98.1 72 18 94/62 (73) 100 07/31/18 19:50 96 21 99 Mechanical Ventilator 45 07/31/18 19:32 61 20 45 07/31/18 19:32 61 20 Mechanical Ventilator 45 07/31/18 19:32 61 20 10 Mechanical Ventilator 45 07/31/18 17:10 69 23 50 07/31/18 16:00 Mechanical Ventilator 07/31/18 16:00 72 07/31/18 16:00 98.4 67 20 100/56 (71) 100 07/31/18 16:00 50 07/31/18 15:22 76 28 50 07/31/18 13:13 95 37 50 07/31/18 13:00 50 07/31/18 12:45 101 45 96 Mechanical Ventilator 50 07/31/18 12:34 99 48 100 Mechanical Ventilator 50 07/31/18 12:34 99 48 Mechanical Ventilator 50 07/31/18 12:00 Mechanical Ventilator 07/31/18 12:00 96.8 100 46 150/89 (109) 91 07/31/18 12:00 101 07/31/18 12:00 30 07/31/18 10:33 85 33 30 07/31/18 08:33 59 23 30 Intake and Output 07/31/18 08/01/18 19:00 07:00 Intake Total 630 ml 1160 ml Output Total 500 ml 450 ml Balance 130 ml 710 ml Free Water 50 ml IV Total 350 ml 330 ml Tube Feeding 130 ml 780 ml Other 150 ml Output Urine Total 500 ml 300 ml Stool Total 150 ml Laboratory Tests 07/31/18 14:02: Arterial Blood pH 7.438, Arterial Blood Partial Pressure CO2 34.2L, Arterial Blood Partial Pressure O2 63.5L, Arterial Blood HCO3 22.6, Arterial Blood Oxygen Saturation 92.7L, Arterial Blood Base Excess -1.1, Rolf Test Positive 08/01/18 04:34: Sodium Level 142, Potassium Level 5.0, Chloride Level 112H, Carbon Dioxide Level 25, Anion Gap 5, Blood Urea Nitrogen 59H, Creatinine 1.4H, Estimat Glomerular Filtration Rate 51.5, Glucose Level 104, Calcium Level 7.5L, Ionized Calcium (Measured) 1.11 Height (Feet): 5 Height (Inches): 5.00 Weight (Pounds): 190 General Appearance: no apparent distress EENT: normal ENT inspection Neck: normal alignment, supple Cardiovascular: normal rate, regular rhythm Respiratory/Chest: crackles/rales Edema: 1+ Arm (L), 1+ Arm (R), 1+ Leg (L), 1+ Leg (R), 1+ Pedal (L), 1+ Pedal ( R), 1+ Generalized Sumit Merchant MD Aug 01, 2018 08:15
--- NOTE | 2018-08-01 08:47 | Pulmonology Progress Note ---
Assessment/Plan Assessment/Plan IMPRESSION: 1. Possible sepsis. 2. Acute on chronic renal failure. 3. Anemia. 4. Possible gastrointestinal bleed. 5. Leukocytosis. 6. Mild coagulopathy. 7. Prior history of G-tube intolerance. 8. Suprapubic catheter. 9. Respiratory failure. 10. Tracheostomy 11. ascites, s/p tap 12. MDR PLAN iv antibiotics- x 2 days monitor fluid shifts check labs stabilize vent feeds recheck labs seizure meds dc to snf today impression, plan, and exam edited and reviewed in detail care discussed with RN Subjective ROS Limited/Unobtainable: Yes Allergies: Coded Allergies: No Known Allergies (Unverified , 07/23/18) Subjective CARE NOTED fully supported dc held due to seizure Objective Last 24 Hour Vital Signs Date Time Temp Pulse Resp B/P (MAP) Pulse Ox O2 Delivery O2 Flow Rate FiO2 08/01/18 08:00 98.4 67 23 130/83 (99) 100 08/01/18 08:00 45 08/01/18 04:52 61 24 45 08/01/18 04:00 Mechanical Ventilator 08/01/18 04:00 50 08/01/18 04:00 61 08/01/18 04:00 98.2 80 18 112/62 (79) 100 08/01/18 02:36 56 25 45 08/01/18 01:24 73 24 99 Mechanical Ventilator 45 08/01/18 01:16 59 16 100 Mechanical Ventilator 45 08/01/18 00:54 62 26 45 08/01/18 00:00 62 08/01/18 00:00 50 08/01/18 00:00 Mechanical Ventilator 08/01/18 00:00 97.9 79 20 102/69 (80) 99 07/31/18 22:52 65 22 45 07/31/18 20:57 62 23 45 07/31/18 20:00 63 07/31/18 20:00 Mechanical Ventilator 07/31/18 20:00 50 07/31/18 20:00 98.1 72 18 94/62 (73) 100 07/31/18 19:50 96 21 99 Mechanical Ventilator 45 07/31/18 19:32 61 20 45 07/31/18 19:32 61 20 Mechanical Ventilator 45 07/31/18 19:32 61 20 10 Mechanical Ventilator 45 07/31/18 17:10 69 23 50 07/31/18 16:00 Mechanical Ventilator 07/31/18 16:00 72 07/31/18 16:00 98.4 67 20 100/56 (71) 100 07/31/18 16:00 50 07/31/18 15:22 76 28 50 07/31/18 13:13 95 37 50 07/31/18 13:00 50 07/31/18 12:45 101 45 96 Mechanical Ventilator 50 07/31/18 12:34 99 48 100 Mechanical Ventilator 50 07/31/18 12:34 99 48 Mechanical Ventilator 50 07/31/18 12:00 Mechanical Ventilator 07/31/18 12:00 96.8 100 46 150/89 (109) 91 07/31/18 12:00 101 07/31/18 12:00 30 07/31/18 10:33 85 33 30 Intake and Output 07/31/18 08/01/18 19:00 07:00 Intake Total 630 ml 1160 ml Output Total 500 ml 450 ml Balance 130 ml 710 ml Free Water 50 ml IV Total 350 ml 330 ml Tube Feeding 130 ml 780 ml Other 150 ml Output Urine Total 500 ml 300 ml Stool Total 150 ml Objective GENERAL: Chronically ill-appearing male. VITAL SIGNS: Reviewed. HEENT: Negative. NECK: Supple. LUNGS: With coarse breath sounds. slightly improved CARDIAC: Normal S1 and S2. RRR ABDOMEN: Soft. G-tube in place.mildly distended EXTREMITIES: Noted edema. GENITOURINARY: He has suprapubic catheter. SKIN: With anasarca and healed decubitus. . Microbiology Date/Time Source Procedure Growth Status 07/31/18 15:45 Sputum Gram Stain Pending Resulted 07/31/18 15:45 Sputum Sputum Culture - Preliminary Resulted Laboratory Tests 07/31/18 14:02: Arterial Blood pH 7.438, Arterial Blood Partial Pressure CO2 34.2L, Arterial Blood Partial Pressure O2 63.5L, Arterial Blood HCO3 22.6, Arterial Blood Oxygen Saturation 92.7L, Arterial Blood Base Excess -1.1, Rolf Test Positive 08/01/18 04:34: Sodium Level 142, Potassium Level 5.0, Chloride Level 112H, Carbon Dioxide Level 25, Anion Gap 5, Blood Urea Nitrogen 59H, Creatinine 1.4H, Estimat Glomerular Filtration Rate 51.5, Glucose Level 104, Calcium Level 7.5L, Ionized Calcium (Measured) 1.11 Current Medications Medications (Trade) Dose Ordered Sig/Andres Route PRN Reason Start Time Stop Time Status Last Admin Dose Admin Acetaminophen (Tylenol) 500 mg EVERY 6 HOURS PRN ORAL Mild Pain/Temp > 100.5 07/28/18 23:15 08/27/18 23:14 07/29/18 00:05 Albuterol/ Ipratropium (Albuterol/ Ipratropium) 3 ml Q6HRT HHN 07/31/18 19:00 08/05/18 18:59 08/01/18 01:16 Atorvastatin Calcium (Lipitor) 20 mg BEDTIME GT 07/23/18 21:00 08/22/18 20:59 07/31/18 20:27 Dextrose (Dextrose 50%) 25 ml Q30M PRN IV Hypoglycemia 07/23/18 18:33 08/22/18 18:32 Dextrose (Dextrose 50%) 50 ml Q30M PRN IV Hypoglycemia 07/23/18 18:33 08/22/18 18:32 Fluconazole (Diflucan) 200 mg DAILY ORAL 07/29/18 09:00 08/05/18 08:59 07/31/18 08:32 Gabapentin (Neurontin) 300 mg Q8HR GT 07/23/18 22:00 08/22/18 21:59 08/01/18 05:19 Heparin Sodium (Porcine) (Heparin 5000 units/ml) 5,000 units EVERY 12 HOURS SUBQ 07/23/18 21:00 08/22/18 20:59 07/31/18 20:28 Hydroxyzine HCl (Vistaril) 10 mg DAILY GT 07/24/18 09:00 08/23/18 08:59 07/31/18 08:32 Insulin Aspart (NovoLOG) EVERY 6 HOURS SUBQ 07/24/18 00:00 08/23/18 00:00 07/31/18 23:04 Lansoprazole (Prevacid) 30 mg DAILY GT 07/24/18 09:00 08/23/18 08:59 07/31/18 08:32 Levetiracetam (Keppra) 500 mg EVERY 8 HOURS GT 07/31/18 22:00 08/23/18 20:59 08/01/18 05:19 Lorazepam (Ativan 2mg/ml 1ml) 1 mg Q2H PRN IVP For Seizures 07/31/18 13:00 08/07/18 12:59 07/31/18 13:40 Meropenem 1 gm/ Sodium Chloride 110 ml @ 220 mls/hr Q8HR IVPB 07/28/18 22:00 08/02/18 21:59 08/01/18 05:18 Sodium Chloride 1,000 ml @ 999 mls/hr Q1H1M ONCE IV 08/01/18 08:30 08/01/18 09:30 Trimethoprim/ Sulfamethoxazole (Bactrim-DS) 1 tab Q12HR ORAL 07/28/18 21:00 08/04/18 20:59 07/31/18 20:27 Vancomycin HCl (Vanco rx to dose) 1 ea DAILY PRN MISC Per rx protocol 07/23/18 18:15 08/22/18 18:14 Vancomycin HCl 1 gm/Dextrose 275 ml @ 183.708 mls/hr Q24H IVPB 07/24/18 16:00 08/02/18 15:59 07/31/18 18:25 Vitamin A/Vitamin D (A & D Oint) 1 applic EVERY 12 HOURS TOPIC 07/23/18 21:00 08/22/18 20:59 07/31/18 20:27 Grant Stone MD Aug 01, 2018 08:47
[2018-08-01] MEDS: Vitamin A&D Oint 2oz Tube TOPIC SCH (09:00)
[2018-08-01] MEDS: Fluconazole 100mg tab ORAL SCH (09:01)
[2018-08-01] MEDS: Bactrim-DS 1 tab ORAL SCH (09:01)
[2018-08-01] MEDS: Heparin 5000 units/ml inj SUBQ SCH (09:03)
[2018-08-01 12:00] VITALS: BP 131/74
[2018-08-01] MEDS ORDERED: Tubing IV Secondary IV ONE (13:59)
[2018-08-01] MEDS ORDERED: NS 275ml ONE (13:59)
[2018-08-01] MEDS ORDERED: NS 500ML ONE (13:59)
--- NOTE | 2018-08-01 16:50 | General Progress Note ---
Assessment/Plan Assessment/Plan Assessment - Dark GT aspirate, doubt GI Bleed - Anemia - Abnormal LFT, cirrhosis/ascites on Ultrasound - GB mass with elevated tumor markers - patient not candidate for surgery - GNR bacteremia - diarrhea, C Diff (-) - likely abx related - Resp failure / trach - dysphagia / GT - lactic acidosis and leukocytosis on admission - Bacteremia, GNR Recommendations - Paracentesis - negative - Check hepatitis serologies - negative - transfuse PRN - PPI - follow labs - check ascites cytology - negative - check CEA/19-9 - mildly elevated - Continue feeds Subjective Allergies: Coded Allergies: No Known Allergies (Unverified , 07/23/18) Subjective above noted d/w RN tolerating TF scant loose BM (+) rectal tube for discharge today Objective Last 24 Hour Vital Signs Date Time Temp Pulse Resp B/P (MAP) Pulse Ox O2 Delivery O2 Flow Rate FiO2 08/01/18 13:45 81 24 99 Mechanical Ventilator 40 08/01/18 13:37 40 08/01/18 13:37 63 18 100 Mechanical Ventilator 40 08/01/18 13:37 62 23 40 08/01/18 12:00 98.2 60 23 131/74 (93) 99 08/01/18 12:00 40 08/01/18 12:00 Mechanical Ventilator 08/01/18 12:00 60 08/01/18 10:30 62 27 40 08/01/18 09:14 64 08/01/18 08:00 Mechanical Ventilator 08/01/18 08:00 98.4 67 23 130/83 (99) 100 08/01/18 08:00 45 08/01/18 06:31 63 23 45 08/01/18 04:52 61 24 45 08/01/18 04:00 Mechanical Ventilator 08/01/18 04:00 50 08/01/18 04:00 61 08/01/18 04:00 98.2 80 18 112/62 (79) 100 08/01/18 02:36 56 25 45 08/01/18 01:24 73 24 99 Mechanical Ventilator 45 08/01/18 01:16 59 16 100 Mechanical Ventilator 45 08/01/18 00:54 62 26 45 08/01/18 00:00 62 08/01/18 00:00 50 08/01/18 00:00 Mechanical Ventilator 08/01/18 00:00 97.9 79 20 102/69 (80) 99 07/31/18 22:52 65 22 45 07/31/18 20:57 62 23 45 07/31/18 20:00 63 07/31/18 20:00 Mechanical Ventilator 07/31/18 20:00 50 07/31/18 20:00 98.1 72 18 94/62 (73) 100 07/31/18 19:50 96 21 99 Mechanical Ventilator 45 07/31/18 19:32 61 20 45 07/31/18 19:32 61 20 Mechanical Ventilator 45 07/31/18 19:32 61 20 10 Mechanical Ventilator 45 07/31/18 17:10 69 23 50 Intake and Output 07/31/18 08/01/18 18:59 06:59 Intake Total 565 ml 1160 ml Output Total 500 ml 450 ml Balance 65 ml 710 ml Free Water 50 ml IV Total 350 ml 330 ml Tube Feeding 65 ml 780 ml Other 150 ml Output Urine Total 500 ml 300 ml Stool Total 150 ml Laboratory Tests 08/01/18 04:34: Sodium Level 142, Potassium Level 5.0, Chloride Level 112H, Carbon Dioxide Level 25, Anion Gap 5, Blood Urea Nitrogen 59H, Creatinine 1.4H, Estimat Glomerular Filtration Rate 51.5, Glucose Level 104, Calcium Level 7.5L, Ionized Calcium (Measured) 1.11 Height (Feet): 5 Height (Inches): 5.00 Weight (Pounds): 190 Objective Debilitated WM NCAT supple CTA RRR abd soft ND NT, (+) GT no edema Victorino Seay MD Aug 01, 2018 16:50
--- NOTE | 2018-08-03 13:56 | Discharge Summary ---
Discharge Summary Discharge Summary _ DATE OF ADMISSION: 07/23/2018 DATE OF DISCHARGE: 08/01/2018 REASON FOR ADMISSION: 63 years old male with past medical history of chronic respiratory failure, ventilator dependent, with tracheostomy, COPD, hypertension, renal insufficiency, functional paraplegia with contractures, dysphagia G-tube, suprapubic catheter, seizure disorder, DNR/DNI status, [facility]. Patient initially required placement on 100% of FiO2. Vital signs revealed low grade fever, tachycardia and tachypnea. Laboratory workup revealed leukocytosis WBC 18.6 ; anemia with hemoglobin 9.2 and hematocrit 28.5 . Evidence of renal failure BUN 84 creatinine 1.5. Lactic acid 2.6. Urinalysis revealed evidence of UTI. Total bilirubin 3.7, direct bilirubin 2.9 . Lipase 711.AST 70. Troponin negative . EKG revealed sinus tachycardia ,no acute ischemic changes . Pro BNP 3652. Chest x-ray revealed infiltrates. Abdominal x-ray revealed no acute findings. Patient vomited coffee ground emesis while in ED. Patient was given Protonix. G tube was placed to suction with return of 100 ml of coffee-ground material. Patient admitted with diagnoses of sepsis, pneumonia, urinary tract infection, GI bleeding, anemia ,chronic respiratory failure, tracheostomy status, abnormal liver test, lactic acidosis ,acute kidney injury on chronic kidney disease., suprapubic catheter. CONSULTANTS: ID specialist GI specialist Dr. Seay boring machine set up operator jig Dr. Merchant surgeon Dr. Molina [facility] COURSE: Patient admitted to [facility]. Ventilator support and pulmonary toilet provided. Patient was follow up with the chest x-ray. Patient initially started on empiric antibiotic. Infectious disease specialist closely followed. Sputum culture revealed Pseudomonas aeruginosa, Escherichia coli ESBL, Klebsiella pneumonia, Carbapenem resistant. Repeated sputum culture showed Stenotrophomonas, Acinetobacter complex, Klebsiella pneumonia. Urine culture grew Negrita. Blood culture showed Klebsiella pneumonia, Carbapenem resistant, Proteus Mirabilis, Staphylococcus epidermidis. Stool for C. difficile was negative. Antibiotic regimen optimized as per Infectious Disease doctor recommendations. Echocardiogram showed no evidence of vegetation. Ejection fraction estimated to be 55-60%. No wall motion abnormalities. Right ventricular systolic pressure of 57 consistent with moderate pulmonary hypertension. Mild left ventricular hypertrophy noted. Patient was followed up with chest x-ray. Ventilator settings titrated as needed. [employer]elance Web Designer and GI specialist closely followed. The day after admission hemoglobin down to 6.5, hematocrit 20.5. Patient undergone transfusion of total of 2 units of packed red blood cell. Hemoglobin and hematocrit were closely monitored with goal to keep hemoglobin above 7. Prior to discharge hemoglobin 8.6 hematocrit 26.6. Abdominal ultrasound revealed chronic liver disease/cirrhosis. Stigmata of portal hypertension, including moderate ascites and splenomegaly. Fundal region 1.5 cm gallbladder mass. Suprapubic catheter. Patient subsequently undergone paracentesis which yielded 4.2 L of ascitic fluid. Culture of ascitic fluid was negative. Cytology of ascitic fluid revealed no evidence of malignant cells. Liver enzymes were closely monitored, trending down. Hepatitis serology was negative. Patient was on PPI. Noted mild elevation in cancer tumor markers CEA - 6.7 ; [id number]. According to GI specialist, patient was not a surgical candidate ,given multiply chronic comorbidities and DNR/DNI status. Patient initially exhibited diarrhea /loose bowel movement. Stool for C. difficile was negative. Diarrhea was likely related to antibiotics , and subsided. Freelance Web Designer closely followed. Renal parameters electrolytes were closely monitored. Electrolytes corrected as needed. Potassium and calcium corrected. According to boring machine set up operator jig patient had chronic kidney disease stage IIIB. Freelance Web Designer recommended to avoid nephrotoxic as possible. Seizure precautions were maintained. Keppra was continued. Surgeon seen the patient for evaluation of sacral decubitus. Patient had multiply pressure injuries present on admission described in detail in surgeon consult. Wound care provided as per surgical recommendation. Nutritional recommendations implemented in plan of care. No need for surgical intervention at this time. Blood pressure was managed with hydralazine with holding parameters. Blood sugar was managed with sliding scale of insulin. DVT prophylaxis provided. Pain management was addressed as needed. Supportive care provided. Patient clinically stabilized. Fever and leukocytosis resolved. Overall prognosis remained. poor. Patient was discharged to subacute facility for continuation of care. FINAL DIAGNOSES: Klebsiella,Staph epidermidis, Proteus sepsis Klebsiella, Escherichia coli ESBL, Pseudomonas pneumonia Fungal UTI Chronic respiratory failure , ventilator dependent with tracheostomy status Acute kidney injury on chronic kidney disease stage IIIB Chronic liver disease/cirrhosis Abnormal liver enzymes- trending down ( likely due to chronic liver disease) Ascites, status post paracentesis, yielding 4.2 L Seizure disorder Diabetes mellitus Gallbladder mass with elevated tumor markers - not a surgical candidate Anemia Possible GI bleeding Diarrhea ,likely antibiotic related ( stool C dif negative ) Electrolytes abnormalities : hypokalemia, hypocalcemia Dysphagia G-tube Suprapubic catheter Sacral decubitus and other decubitus ulcers , present on admission. Lactic acidosis present on admission -resolved DISCHARGE MEDICATIONS: List of medication was sent accepting facility. Complete antibiotic course at the facility as specified recommended by infectious disease specialist. DISCHARGE INSTRUCTIONS: [facility] Follow up with medical doctor at the facility. I have been assigned to dictate discharge summary for this account. I was not involved in the patient's management. Jayla Mcmanus NP Aug 03, 2018 13:56
== END 2018-08-01 14:00 | DRG 720 ==
LOC: EDBD 13:23 → EDBEDREQ 13:38 → EMR 14:40 → EDBEDREQ 15:20 → 2W 16:19
PROC: 5A1955Z Respiratory Ventilation, Greater than 96 Consecutive Hours (ICD-10-PCS; principal; 2018-07-23)
PROC: 0W9G3ZZ Drainage of Peritoneal Cavity, Percutaneous Approach (ICD-10-PCS; 2018-07-26)
DX: A41.50 Gram-negative sepsis, unspecified (principal); J96.11 Chronic respiratory failure with hypoxia; J15.0 Pneumonia due to Klebsiella pneumoniae; J15.1 Pneumonia due to Pseudomonas; Z99.11 Dependence on respirator [ventilator] status; B49 Unspecified mycosis; J15.5 Pneumonia due to Escherichia coli; R13.10 Dysphagia, unspecified; N17.9 Acute kidney failure, unspecified; I12.9 Hypertensive chronic kidney disease with stage 1 through stage 4 chronic kidney disease, or unspecified chronic kidney disease; E11.22 Type 2 diabetes mellitus with diabetic chronic kidney disease; N18.3 Chronic kidney disease, stage 3 (moderate); Z93.1 Gastrostomy status; Z93.0 Tracheostomy status; G40.909 Epilepsy, unspecified, not intractable, without status epilepticus; D63.1 Anemia in chronic kidney disease; D68.9 Coagulation defect, unspecified; Z66 Do not resuscitate; N39.0 Urinary tract infection, site not specified; E87.6 Hypokalemia; E83.51 Hypocalcemia; L89.150 Pressure ulcer of sacral region, unstageable; K74.60 Unspecified cirrhosis of liver; R18.8 Other ascites; K76.6 Portal hypertension
CPT/HCPCS: 36415; 36600; 71045; 74018; 76700; 76942; 80048; 80053; 80170; 80202; 81003; 82248; 82330; 82378; 82550; 82553; 82803; 82962; 83605; 83690; 83735; 83880; 84484; 85007; 85025; 85610; 85730; 86705; 86709; 86803; 86850; 86900; 86901; 86920; 87040; 87070; 87086; 87181; 87205; 87324; 87340; 88104; 89051; 93005; 93306; 94002; 94003; 94640; 94664; 96361; 96365; 96367; 96375; 99291; J1815; J7620; J8499

== ENCOUNTER 2018-08-16 18:32 | Emergency (ER) | payer OTHER ==
[~2018-08-16] VITALS: Ht 177.8 cm; Wt 68.0 kg
[~2018-08-16 18:32] MED LIST: ACETAMINOP160 MG/5 M GT; ARGINAID EXTRA GT; ATORVASTATIN CA20 MG GT; EPOGEN20000 UNI1 SUBQ; FERROUS SULFAT325 MG GT; FUROSEMIDE40 MG GT; GABAPENTIN300 MG GT; HEPARIN SO5000 UNIT2 SUBQ; HYDRALAZINE HCL25 M1 GT; HYDROXYZINE HCL10 M1 GT; LEVETIRACE100 MG/1 M GT; METOCLOPRA10 MG/10 M GT; NORCO 5-325 TA1 EACH GT; NOVOLIN R100 UNIT/1 SUBQ; NOVOLOG100 UNIT/3 SUBQ; OMEPRAZOLE20 M2 GT; POTASSIUM CHLO20 ME2 GT; PROCRIT4000 UNIT/ SUBQ; PROTONIX40 MG ORAL; VITAMIN C500 M1 GT; ZINC SULFATE220 M1 GT
--- NOTE | 2018-08-16 18:50 | Emergency Room Report ---
History of Present Illness General Chief Complaint: General Complaint Source: Medical Record, EMS Present Illness HPI Patient presents from nursing facility with urinary obstruction The suprapubic catheter has not been flowing appropriately patient has also become more edematous Patient himself is nonverbal History of present illness is significantly limited I did make contact with the patient's primary physician who reports similar complaint at the urine was obstructed and required acute intervention Allergies: Coded Allergies: No Known Allergies (Unverified , 07/23/18) Patient History Past Medical History: see triage record Pertinent Family History: none Reviewed Nursing Documentation: PMH: Agreed; PSxH: Agreed Nursing Documentation-PM Past Medical History: No History, Except For Hx Cardiac Problems: Yes Hx Hypertension: Yes Hx COPD: Yes - vent dept Hx Diabetes: Yes Hx Cancer: No Hx Gastrointestinal Problems: Yes Hx Neurological Problems: Yes Hx Seizures: Yes Hx Epilepsy: Yes Review of Systems All Other Systems: limited - Other than the ones mentioned in the history of present illness all others are reviewed however they do stay limited due to the patient's mental status Physical Exam Vital Signs Date Time Temp Pulse Resp B/P (MAP) Pulse Ox O2 Delivery O2 Flow Rate FiO2 08/16/18 18:29 90 24 110/60 100 Mechanical Ventilator Sp02 EP Interpretation: reviewed, normal General Appearance: no apparent distress Head: normocephalic, atraumatic ENT: normal pharynx, no angioedema Neck: supple Respiratory: no respiratory distress, no retraction, crackles - Both lower lobes Cardiovascular #1: regular rate, rhythm Gastrointestinal: other - Patient is edematous diffusely Musculoskeletal: other - Chronically debilitated not moving extremities Neurologic: responsive - Minimal response to physical stimuli Skin: other - Significant edema diffusely upper and lower extremities lower abdominal area testicular region Lymphatic: no adenopathy Medical Decision Making Diagnostic Impression: Primary Impression: Suprapubic catheter dysfunction Additional Impressions: Blocked suprapubic catheter Encounter for suprapubic catheter care ER Course After discussion with the patient's primary physician The existing suprapubic catheter was removed After remover that is copious amounts of urine expressed Patient had Mars catheter placed through the stoma of the suprapubic region without incidents and continued to have urine output The previous catheter that show obvious obstruction Case is discussed with Dr. Sharpe and patient stable for close outpatient follow -up at the halfway facility Last Vital Signs Date Time Temp Pulse Resp B/P (MAP) Pulse Ox O2 Delivery O2 Flow Rate FiO2 08/16/18 18:29 90 24 110/60 100 Mechanical Ventilator Status: improved Disposition: XFER SNF Condition: Improved Additional Instructions: Follow-up nursing facility physician next 2 days return if any changes Guero Day DO Aug 16, 2018 18:49
[2018-08-16 19:01] VITALS: BP 96/57
== END 2018-08-16 19:10 ==
LOC: EDBD 18:32 → EMR 18:53
DX: T83.098A Other mechanical complication of other urinary catheter, initial encounter (principal); Z46.6 Encounter for fitting and adjustment of urinary device; I10 Essential (primary) hypertension; E11.9 Type 2 diabetes mellitus without complications; G40.909 Epilepsy, unspecified, not intractable, without status epilepticus
CPT/HCPCS: 51702; 99283